=== PATIENT | male | born 1955 | race African-American/Black ===

== ENCOUNTER 2017-07-01 13:29 | Inpatient (IN) | payer MEDICARE, MEDICAID ==
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
[2017-07-01 14:07] LABS: % BASOPHILS 0.8 % (0.0-2.0); % EOSINOPHILS 1.1 % (0.0-5.0); % LYMPHOCYTES 36.8 % (20.0-50.0); % MONOCYTES 12.5 % (2.0-10.0); % NEUTROPHILS 48.8 % (40.0-80.0); BASOPHILE ABSOLUTE 0.1 Th/cumm (0-0.2); EOSINOPHILE ABSOLUTE 0.1 Th/cmm (0.1-0.4); HEMATOCRIT 35.3 % (41.0-60); HEMOGLOBIN 12.1 gm/dL (12-16); LYMPHOCYTE ABSOLUTE 2.4 Th/cmm (1.5-3.0); MEAN CELL VOLUME 91.8 fl (80-99); MEAN CORPUSCULAR HEMOGLOBIN 31.4 pg (26.0-30.0); MEAN CORPUSCULAR HGB CONC 34.2 pg (28.0-36.0); MEAN PLATELET VOLUME 7.2 fl; MONOCYTE ABSOLUTE 0.8 Th/cmm (0.3-1.0); PLATELET COUNT 173 Th/cmm (150-400); RED BLOOD COUNT 3.85 Mil/cmm (4.30-5.70); RED CELL DISTRIBUTION WIDTH 12.4 % (11.5-20.0); WHITE BLOOD COUNT 6.4 Th/cmm (4.8-10.8)
[2017-07-01 14:50] LABS: ACETAMINOPHEN < 10.0 ug/mL (10.0-30.0); ALB/GLOB RATIO 1.3 (1.0-1.8); ALBUMIN 3.9 gm/dL (4.2-5.5); ALKALINE PHOSPHATASE 53 U/L (34-104); ANION GAP 7.3 (7.0-16.0); BILIRUBIN,TOTAL 0.3 mg/dL (0.3-1.0); BUN - UREA NITROGEN 20 mg/dL (7-25); CALCIUM SERUM 9.3 mg/dL (8.6-10.3); CHLORIDE 103 mEq/L (98-107); CHOLESTEROL 181 mg/dL (<200); CREATININE - SERUM 0.9 mg/dL (0.7-1.3); GFR AFRICAN-AMERICAN > 60.0 ml/min (>90); GFR NON AFRICAN-AMERICAN > 60.0 ml/min; GLUCOSE 100 mg/dL (70-105); HDL -HIGH DENSITY LIPOPROTEIN 57 mg/dL (23-92); POTASSIUM SERUM 4.3 mEq/L (3.5-5.1); SGOT 19 U/L (13-39); SGPT/ALT 14 U/L (7-52); SODIUM SERUM 134 mEq/L (136-145); TOTAL PROTEIN,SERUM 6.9 gm/dL (6.0-8.3); TRIGLYCERIDES 224 mg/dL (<150)
[2017-07-01 15:17] LABS: SALICYLATES (ASPIRIN) < 25.0 mg/L (30.0-100.0)
[2017-07-01 16:11] VITALS: BP 99/62
[2017-07-01] MEDS ORDERED: Maalox 30 mL Cup PO PRN ×2 (16:11→18:42)
[2017-07-01] MEDS ORDERED: Magnesium Hydroxide (MOM) 30 mL UDC PO PRN ×2 (16:11→18:42)
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
--- NOTE | 2017-07-02 08:50 | General Progress Note ---
Subjective - Review of Systems Service Date: 07/02/17 Subjective: Awake, Alert, but confused Objective - Results Result Diagrams: 07/01/17 13:56 07/01/17 13:56 Recent Labs: Laboratory Last Values WBC 6.4 Th/cmm (4.8-10.8) 07/01/17 13:56 RBC 3.85 Mil/cmm (4.30-5.70) L 07/01/17 13:56 Hgb 12.1 gm/dL (12-16) 07/01/17 13:56 Hct 35.3 % (41.0-60) L 07/01/17 13:56 MCV 91.8 fl (80-99) 07/01/17 13:56 MCH 31.4 pg (26.0-30.0) H 07/01/17 13:56 MCHC Differential 34.2 pg (28.0-36.0) 07/01/17 13:56 RDW 12.4 % (11.5-20.0) 07/01/17 13:56 Plt Count 173 Th/cmm (150-400) 07/01/17 13:56 MPV 7.2 fl 07/01/17 13:56 Neutrophils % 48.8 % (40.0-80.0) 07/01/17 13:56 Lymphocytes % 36.8 % (20.0-50.0) 07/01/17 13:56 Monocytes % 12.5 % (2.0-10.0) H 07/01/17 13:56 Eosinophils % 1.1 % (0.0-5.0) 07/01/17 13:56 Basophils % 0.8 % (0.0-2.0) 07/01/17 13:56 Sodium 134 mEq/L (136-145) L 07/01/17 13:56 Potassium 4.3 mEq/L (3.5-5.1) 07/01/17 13:56 Chloride 103 mEq/L (98-107) 07/01/17 13:56 Carbon Dioxide 28.0 mEq/L (21.0-31.0) 07/01/17 13:56 Anion Gap 7.3 (7.0-16.0) 07/01/17 13:56 BUN 20 mg/dL (7-25) 07/01/17 13:56 Creatinine 0.9 mg/dL (0.7-1.3) 07/01/17 13:56 Est GFR ( Amer) > 60.0 ml/min (>90) 07/01/17 13:56 Est GFR (Non-Af Amer) > 60.0 ml/min 07/01/17 13:56 BUN/Creatinine Ratio 22.2 07/01/17 13:56 Glucose 100 mg/dL (70-105) 07/01/17 13:56 Calcium 9.3 mg/dL (8.6-10.3) 07/01/17 13:56 Total Bilirubin 0.3 mg/dL (0.3-1.0) 07/01/17 13:56 AST 19 U/L (13-39) 07/01/17 13:56 ALT 14 U/L (7-52) 07/01/17 13:56 Alkaline Phosphatase 53 U/L (34-104) 07/01/17 13:56 Total Protein 6.9 gm/dL (6.0-8.3) 07/01/17 13:56 Albumin 3.9 gm/dL (4.2-5.5) L 07/01/17 13:56 Globulin 3.0 gm/dL 07/01/17 13:56 Albumin/Globulin Ratio 1.3 (1.0-1.8) 07/01/17 13:56 Triglycerides 224 mg/dL (<150) H 07/01/17 13:56 Cholesterol 181 mg/dL (<200) 07/01/17 13:56 LDL Cholesterol Direct 97 mg/dL (75-193) 07/01/17 13:56 HDL Cholesterol 57 mg/dL (23-92) 07/01/17 13:56 TSH 1.89 uIU/ml (0.34-5.60) 07/01/17 13:56 Salicylates < 25.0 mg/L (30.0-100.0) L 07/01/17 13:56 Acetaminophen < 10.0 ug/mL (10.0-30.0) L 07/01/17 13:56 Ethyl Alcohol < 10 mg/dL (0-10) 07/01/17 13:56 - Physical Exam Vitals and I&O: Vital Signs Temp 97.7 F 07/02/17 07:01 Pulse 80 07/02/17 07:01 Resp 18 07/02/17 07:01 BP 124/84 07/02/17 07:01 Pulse Ox 99 07/02/17 07:01 Intake & Output 07/01/17 07/02/17 07/02/17 18:59 06:59 18:59 Intake Total 410 Balance 410 Weight (lbs) 90.718 kg Intake: Oral 410 Other: # Voids 2 # Bowel Movements 0 Active Medications: Current Medications Acetaminophen (Tylenol) 650 mg PO Q4H PRN PRN Reason: Pain (Mild) Stop: 08/30/17 18:41 Al Hydrox/Mg Hydrox/Simethicone (Maalox) 30 ml PO Q6HR PRN PRN Reason: GI DISTRESS Stop: 08/30/17 18:41 Aspirin (Ecotrin) 81 mg PO DAILY [facility] Stop: 08/31/17 08:59 Divalproex Sodium (Depakote Dr) 500 mg PO BID DIMITRIS PRN Reason: Protocol Stop: 08/30/17 16:59 Docusate Sodium (Colace) 250 mg PO DAILY [facility] Stop: 08/31/17 08:59 Ferrous Sulfate (Iron) 325 mg PO DAILY [facility] Stop: 08/31/17 08:59 Ibuprofen (Motrin) 400 mg PO BID [facility] Stop: 08/30/17 16:59 Last Admin: 07/01/17 17:50 Dose: Not Given Isosorbide Mononitrate (Imdur) 30 mg PO DAILY [facility] Stop: 08/31/17 08:59 Lorazepam (Ativan) 0.5 mg PO Q4HR PRN; Protocol PRN Reason: Anxiety Stop: 07/31/17 16:10 Last Admin: 07/01/17 20:39 Dose: 0.5 mg Magnesium Hydroxide (Milk Of Magnesia) 30 ml PO HS PRN PRN Reason: Constipation Magnesium Hydroxide (Milk Of Magnesia) 30 ml PO PRN PRN PRN Reason: Constipation Stop: 08/30/17 18:41 Metoprolol Succinate (Toprol Xl) 25 mg PO DAILY [facility] Stop: 08/31/17 08:59 Quetiapine Fumarate (Seroquel) 200 mg PO TID DIMITRIS PRN Reason: Protocol Stop: 08/30/17 20:59 Zolpidem Tartrate (Ambien) 5 mg PO HS PRN PRN Reason: Insomnia Stop: 08/30/17 16:10 General: Alert, Oriented x3, No acute distress HEENT: Atraumatic, PERRLA, EOMI Neck: Supple Cardiovascular: Regular rate, Normal S1, Normal S2 Lungs: Clear to auscultation Abdomen: Bowel sounds, Soft Extremities: no Clubbing, no Cyanosis, no Edema Neurological: Normal gait, Normal speech Skin: no Rash Assessment/Plan - Problem List Patient Problems: All Active Problems AGITATION WITH VERBAL AND PHYSICAL THREA (Acute) - Assessment Assessment: Current Active Problems Problem Status Onset AGITATION WITH VERBAL AND PHYSICAL THREA Acute psychosis hypertension bipolar disorder - Plan Plan: continue current orders.
[2017-07-02] MEDS ORDERED: Multivitamin Tab PO SCH (09:00)
[2017-07-02] MEDS: Multivitamin w/ Minerals Tab PO SCH (09:08)
[2017-07-02] MEDS: Ferrous Sulfate 325 MG TAB PO SCH (09:12)
[2017-07-02 13:19] LABS: A1C % 7.1 % (4.0-6.0)
--- NOTE | 2017-07-03 08:06 | General Progress Note ---
Subjective - Review of Systems Service Date: 07/03/17 Subjective: VS T 97.5 P84 R19 BP 122/80 Objective - Results Result Diagrams: 07/01/17 13:56 07/01/17 13:56 Recent Labs: Laboratory Last Values WBC 6.4 Th/cmm (4.8-10.8) 07/01/17 13:56 RBC 3.85 Mil/cmm (4.30-5.70) L 07/01/17 13:56 Hgb 12.1 gm/dL (12-16) 07/01/17 13:56 Hct 35.3 % (41.0-60) L 07/01/17 13:56 MCV 91.8 fl (80-99) 07/01/17 13:56 MCH 31.4 pg (26.0-30.0) H 07/01/17 13:56 MCHC Differential 34.2 pg (28.0-36.0) 07/01/17 13:56 RDW 12.4 % (11.5-20.0) 07/01/17 13:56 Plt Count 173 Th/cmm (150-400) 07/01/17 13:56 MPV 7.2 fl 07/01/17 13:56 Neutrophils % 48.8 % (40.0-80.0) 07/01/17 13:56 Lymphocytes % 36.8 % (20.0-50.0) 07/01/17 13:56 Monocytes % 12.5 % (2.0-10.0) H 07/01/17 13:56 Eosinophils % 1.1 % (0.0-5.0) 07/01/17 13:56 Basophils % 0.8 % (0.0-2.0) 07/01/17 13:56 Sodium 134 mEq/L (136-145) L 07/01/17 13:56 Potassium 4.3 mEq/L (3.5-5.1) 07/01/17 13:56 Chloride 103 mEq/L (98-107) 07/01/17 13:56 Carbon Dioxide 28.0 mEq/L (21.0-31.0) 07/01/17 13:56 Anion Gap 7.3 (7.0-16.0) 07/01/17 13:56 BUN 20 mg/dL (7-25) 07/01/17 13:56 Creatinine 0.9 mg/dL (0.7-1.3) 07/01/17 13:56 Est GFR ( Amer) > 60.0 ml/min (>90) 07/01/17 13:56 Est GFR (Non-Af Amer) > 60.0 ml/min 07/01/17 13:56 BUN/Creatinine Ratio 22.2 07/01/17 13:56 Glucose 100 mg/dL (70-105) 07/01/17 13:56 Hemoglobin A1c % 7.1 % (4.0-6.0) H 07/01/17 13:56 Calcium 9.3 mg/dL (8.6-10.3) 07/01/17 13:56 Total Bilirubin 0.3 mg/dL (0.3-1.0) 07/01/17 13:56 AST 19 U/L (13-39) 07/01/17 13:56 ALT 14 U/L (7-52) 07/01/17 13:56 Alkaline Phosphatase 53 U/L (34-104) 07/01/17 13:56 Total Protein 6.9 gm/dL (6.0-8.3) 07/01/17 13:56 Albumin 3.9 gm/dL (4.2-5.5) L 07/01/17 13:56 Globulin 3.0 gm/dL 07/01/17 13:56 Albumin/Globulin Ratio 1.3 (1.0-1.8) 07/01/17 13:56 Triglycerides 224 mg/dL (<150) H 07/01/17 13:56 Cholesterol 181 mg/dL (<200) 07/01/17 13:56 LDL Cholesterol Direct 97 mg/dL (75-193) 07/01/17 13:56 HDL Cholesterol 57 mg/dL (23-92) 07/01/17 13:56 TSH 1.89 uIU/ml (0.34-5.60) 07/01/17 13:56 Salicylates < 25.0 mg/L (30.0-100.0) L 07/01/17 13:56 Acetaminophen < 10.0 ug/mL (10.0-30.0) L 07/01/17 13:56 Ethyl Alcohol < 10 mg/dL (0-10) 07/01/17 13:56 - Physical Exam Vitals and I&O: Vital Signs Temp 97.5 F 07/02/17 20:00 Pulse 84 07/02/17 20:00 Resp 19 07/02/17 20:00 BP 122/80 07/02/17 20:00 Pulse Ox 100 07/02/17 20:00 Intake & Output 07/02/17 07/03/17 07/03/17 18:59 06:59 18:59 Intake Total 250 Balance 250 Intake: Oral 250 Other: # Voids 4 # Bowel Movements 1 Active Medications: Current Medications Acetaminophen (Tylenol) 650 mg PO Q4H PRN PRN Reason: Pain (Mild) Stop: 08/30/17 18:41 Al Hydrox/Mg Hydrox/Simethicone (Maalox) 30 ml PO Q6HR PRN PRN Reason: GI DISTRESS Stop: 08/30/17 18:41 Aspirin (Ecotrin) 81 mg PO DAILY [facility] Stop: 08/31/17 08:59 Last Admin: 07/02/17 09:12 Dose: 81 mg Clonazepam (Klonopin) 0.5 mg PO BID DIMITRIS PRN Reason: Protocol Stop: 09/01/17 08:59 Divalproex Sodium (Depakote Dr) 500 mg PO BID DIMITRIS PRN Reason: Protocol Stop: 08/30/17 16:59 Docusate Sodium (Colace) 250 mg PO DAILY [facility] Stop: 08/31/17 08:59 Last Admin: 07/02/17 09:12 Dose: 250 mg Ferrous Sulfate (Iron) 325 mg PO DAILY [facility] Stop: 08/31/17 08:59 Last Admin: 07/02/17 09:12 Dose: 325 mg Ibuprofen (Motrin) 400 mg PO BID [facility] Stop: 08/30/17 16:59 Last Admin: 07/02/17 16:21 Dose: Not Given Isosorbide Mononitrate (Imdur) 30 mg PO DAILY [facility] Stop: 08/31/17 08:59 Last Admin: 07/02/17 09:59 Dose: 30 mg Lorazepam (Ativan) 0.5 mg PO Q4HR PRN; Protocol PRN Reason: Anxiety Stop: 07/31/17 16:10 Last Admin: 07/02/17 09:08 Dose: 0.5 mg Magnesium Hydroxide (Milk Of Magnesia) 30 ml PO HS PRN PRN Reason: Constipation Magnesium Hydroxide (Milk Of Magnesia) 30 ml PO PRN PRN PRN Reason: Constipation Stop: 08/30/17 18:41 Metoprolol Succinate (Toprol Xl) 25 mg PO DAILY [facility] Stop: 08/31/17 08:59 Last Admin: 07/02/17 09:59 Dose: 25 mg Quetiapine Fumarate (Seroquel) 200 mg PO TID DIMITRIS PRN Reason: Protocol Stop: 08/30/17 20:59 Zolpidem Tartrate (Ambien) 5 mg PO HS PRN PRN Reason: Insomnia Stop: 08/30/17 16:10 Last Admin: 07/02/17 20:37 Dose: 5 mg General: Alert, Oriented x3, No acute distress HEENT: Atraumatic, PERRLA, EOMI Neck: Supple Cardiovascular: Regular rate, Normal S1, Normal S2 Lungs: Clear to auscultation Abdomen: Bowel sounds, Soft Extremities: no Clubbing, no Cyanosis, no Edema Neurological: Normal gait, Normal speech Skin: no Rash Assessment/Plan - Problem List Patient Problems: All Active Problems AGITATION WITH VERBAL AND PHYSICAL THREA (Acute) - Assessment Assessment: Current Active Problems Problem Status Onset AGITATION WITH VERBAL AND PHYSICAL THREA Acute psychosis hypertension bipolar disorder borderline diabetes mellitus ... will add Januvia 25mg PO daily. dietary changes.
[2017-07-03] MEDS: Ferrous Sulfate 325 MG TAB PO SCH (08:57)
[2017-07-03] MEDS: Multivitamin w/ Minerals Tab PO SCH (16:37)
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
[2017-07-04] MEDS: Multivitamin w/ Minerals Tab PO SCH (09:09)
[2017-07-04] MEDS: Ferrous Sulfate 325 MG TAB PO SCH (09:12)
--- NOTE | 2017-07-04 12:39 | General Progress Note ---
Subjective - Review of Systems Service Date: 07/04/17 Subjective: VS T 97.5 P73 R19 BP 123/73 Objective - Results Result Diagrams: 07/01/17 13:56 07/01/17 13:56 Recent Labs: Laboratory Last Values WBC 6.4 Th/cmm (4.8-10.8) 07/01/17 13:56 RBC 3.85 Mil/cmm (4.30-5.70) L 07/01/17 13:56 Hgb 12.1 gm/dL (12-16) 07/01/17 13:56 Hct 35.3 % (41.0-60) L 07/01/17 13:56 MCV 91.8 fl (80-99) 07/01/17 13:56 MCH 31.4 pg (26.0-30.0) H 07/01/17 13:56 MCHC Differential 34.2 pg (28.0-36.0) 07/01/17 13:56 RDW 12.4 % (11.5-20.0) 07/01/17 13:56 Plt Count 173 Th/cmm (150-400) 07/01/17 13:56 MPV 7.2 fl 07/01/17 13:56 Neutrophils % 48.8 % (40.0-80.0) 07/01/17 13:56 Lymphocytes % 36.8 % (20.0-50.0) 07/01/17 13:56 Monocytes % 12.5 % (2.0-10.0) H 07/01/17 13:56 Eosinophils % 1.1 % (0.0-5.0) 07/01/17 13:56 Basophils % 0.8 % (0.0-2.0) 07/01/17 13:56 Sodium 134 mEq/L (136-145) L 07/01/17 13:56 Potassium 4.3 mEq/L (3.5-5.1) 07/01/17 13:56 Chloride 103 mEq/L (98-107) 07/01/17 13:56 Carbon Dioxide 28.0 mEq/L (21.0-31.0) 07/01/17 13:56 Anion Gap 7.3 (7.0-16.0) 07/01/17 13:56 BUN 20 mg/dL (7-25) 07/01/17 13:56 Creatinine 0.9 mg/dL (0.7-1.3) 07/01/17 13:56 Est GFR ( Amer) > 60.0 ml/min (>90) 07/01/17 13:56 Est GFR (Non-Af Amer) > 60.0 ml/min 07/01/17 13:56 BUN/Creatinine Ratio 22.2 07/01/17 13:56 Glucose 100 mg/dL (70-105) 07/01/17 13:56 Hemoglobin A1c % 7.1 % (4.0-6.0) H 07/01/17 13:56 Calcium 9.3 mg/dL (8.6-10.3) 07/01/17 13:56 Total Bilirubin 0.3 mg/dL (0.3-1.0) 07/01/17 13:56 AST 19 U/L (13-39) 07/01/17 13:56 ALT 14 U/L (7-52) 07/01/17 13:56 Alkaline Phosphatase 53 U/L (34-104) 07/01/17 13:56 Total Protein 6.9 gm/dL (6.0-8.3) 07/01/17 13:56 Albumin 3.9 gm/dL (4.2-5.5) L 07/01/17 13:56 Globulin 3.0 gm/dL 07/01/17 13:56 Albumin/Globulin Ratio 1.3 (1.0-1.8) 07/01/17 13:56 Triglycerides 224 mg/dL (<150) H 07/01/17 13:56 Cholesterol 181 mg/dL (<200) 07/01/17 13:56 LDL Cholesterol Direct 97 mg/dL (75-193) 07/01/17 13:56 HDL Cholesterol 57 mg/dL (23-92) 07/01/17 13:56 TSH 1.89 uIU/ml (0.34-5.60) 07/01/17 13:56 Salicylates < 25.0 mg/L (30.0-100.0) L 07/01/17 13:56 Acetaminophen < 10.0 ug/mL (10.0-30.0) L 07/01/17 13:56 Valproic Acid 12.8 ug/mL (50.0-100.0) L 07/03/17 08:35 Ethyl Alcohol < 10 mg/dL (0-10) 07/01/17 13:56 RPR NONREACTIVE (NONREACTIVE) 07/01/17 13:56 - Physical Exam Vitals and I&O: Vital Signs Temp 97.2 F 07/03/17 20:00 Pulse 72 07/04/17 08:00 Resp 18 07/04/17 08:00 BP 123/73 07/03/17 20:00 Pulse Ox 98 07/03/17 20:00 Intake & Output 07/03/17 07/04/17 07/04/17 18:59 06:59 18:59 Intake Total 360 Balance 360 Intake: Oral 360 Other: # Voids 3 Active Medications: Current Medications Acetaminophen (Tylenol) 650 mg PO Q4H PRN PRN Reason: Pain (Mild) Stop: 08/30/17 18:41 Al Hydrox/Mg Hydrox/Simethicone (Maalox) 30 ml PO Q6HR PRN PRN Reason: GI DISTRESS Stop: 08/30/17 18:41 Aspirin (Ecotrin) 81 mg PO DAILY [facility] Stop: 08/31/17 08:59 Last Admin: 07/04/17 09:09 Dose: 81 mg Clonazepam (Klonopin) 0.5 mg PO BID [facility] PRN Reason: Protocol Stop: 09/01/17 08:59 Last Admin: 07/04/17 09:11 Dose: 0.5 mg Divalproex Sodium (Depakote Dr) 500 mg PO TID [facility] PRN Reason: Protocol Stop: 09/02/17 08:59 Last Admin: 07/04/17 09:11 Dose: 500 mg Docusate Sodium (Colace) 250 mg PO DAILY [facility] Stop: 08/31/17 08:59 Last Admin: 07/04/17 09:12 Dose: 250 mg Ferrous Sulfate (Iron) 325 mg PO DAILY [facility] Stop: 08/31/17 08:59 Last Admin: 07/04/17 09:12 Dose: 325 mg Ibuprofen (Motrin) 400 mg PO BID [facility] Stop: 08/30/17 16:59 Last Admin: 07/04/17 09:09 Dose: 400 mg Isosorbide Mononitrate (Imdur) 30 mg PO DAILY [facility] Stop: 08/31/17 08:59 Last Admin: 07/03/17 08:56 Dose: 30 mg Lorazepam (Ativan) 0.5 mg PO Q4HR PRN; Protocol PRN Reason: Anxiety Stop: 07/31/17 16:10 Last Admin: 07/02/17 09:08 Dose: 0.5 mg Magnesium Hydroxide (Milk Of Magnesia) 30 ml PO HS PRN PRN Reason: Constipation Magnesium Hydroxide (Milk Of Magnesia) 30 ml PO PRN PRN PRN Reason: Constipation Stop: 08/30/17 18:41 Metoprolol Succinate (Toprol Xl) 25 mg PO DAILY [facility] Stop: 08/31/17 08:59 Last Admin: 07/03/17 16:38 Dose: Not Given Quetiapine Fumarate (Seroquel) 250 mg PO TID [facility] PRN Reason: Protocol Stop: 09/02/17 06:23 Last Admin: 07/04/17 09:10 Dose: 250 mg Sitagliptin Phosphate (Januvia) 25 mg PO DAILY [facility] Stop: 09/01/17 08:59 Last Admin: 07/04/17 09:10 Dose: 25 mg Zolpidem Tartrate (Ambien) 5 mg PO HS PRN PRN Reason: Insomnia Stop: 08/30/17 16:10 Last Admin: 07/03/17 20:13 Dose: 5 mg General: Alert, Oriented x3, No acute distress HEENT: Atraumatic, PERRLA, EOMI Neck: Supple Cardiovascular: Regular rate, Normal S1, Normal S2 Lungs: Clear to auscultation Abdomen: Bowel sounds, Soft Extremities: no Clubbing, no Cyanosis, no Edema Neurological: Normal gait, Normal speech Skin: no Rash Assessment/Plan - Problem List Patient Problems: All Active Problems AGITATION WITH VERBAL AND PHYSICAL THREA (Acute) - Assessment Assessment: Current Active Problems Problem Status Onset AGITATION WITH VERBAL AND PHYSICAL THREA Acute psychosis hypertension bipolar disorder borderline diabetes mellitus ... will add Januvia 25mg PO daily. dietary changes. - Plan Plan: continue current orders.
--- NOTE | 2017-07-05 01:49 | Progress Notes ---
DATE: 07/04/2017 Chart reviewed and the patient interviewed. Also discussed the patient's condition with the staff and reviewed records and labs. The patient is still pacing up and down and is still in angry and in irritable mood. The patient also is still suspicious and paranoid. He also still needs to be monitored closely because of his sexual inappropriate behavior and he still has difficulty following staff directions. Otherwise, the patient is compliant with taking his medications. During interview, the patient is hyperverbal and he still has pressured speech. He also is still easily agitated and restless and have difficulty sitting still during the conversation. Also, disorganized thoughts. ASSESSMENT: The patient is still having poor impulse control and still showing some manic behavior. TREATMENT PLAN: We will continue monitoring his behavior and his condition closely. Also, Depakote blood level that was done yesterday, came back to be 12.8, which is below therapeutic level and we will increase Depakote to 500 mg 3 times a day. Also, we will increase Seroquel to 250 mg 3 times a day and will continue to follow up. JOB# [id number]
--- NOTE | 2017-07-05 05:59 | General Progress Note ---
Subjective - Review of Systems Service Date: 07/05/17 Subjective: VS T 97.2 P68 R18 BP 100/60 Objective - Results Result Diagrams: 07/01/17 13:56 07/01/17 13:56 Recent Labs: Laboratory Last Values WBC 6.4 Th/cmm (4.8-10.8) 07/01/17 13:56 RBC 3.85 Mil/cmm (4.30-5.70) L 07/01/17 13:56 Hgb 12.1 gm/dL (12-16) 07/01/17 13:56 Hct 35.3 % (41.0-60) L 07/01/17 13:56 MCV 91.8 fl (80-99) 07/01/17 13:56 MCH 31.4 pg (26.0-30.0) H 07/01/17 13:56 MCHC Differential 34.2 pg (28.0-36.0) 07/01/17 13:56 RDW 12.4 % (11.5-20.0) 07/01/17 13:56 Plt Count 173 Th/cmm (150-400) 07/01/17 13:56 MPV 7.2 fl 07/01/17 13:56 Neutrophils % 48.8 % (40.0-80.0) 07/01/17 13:56 Lymphocytes % 36.8 % (20.0-50.0) 07/01/17 13:56 Monocytes % 12.5 % (2.0-10.0) H 07/01/17 13:56 Eosinophils % 1.1 % (0.0-5.0) 07/01/17 13:56 Basophils % 0.8 % (0.0-2.0) 07/01/17 13:56 Sodium 134 mEq/L (136-145) L 07/01/17 13:56 Potassium 4.3 mEq/L (3.5-5.1) 07/01/17 13:56 Chloride 103 mEq/L (98-107) 07/01/17 13:56 Carbon Dioxide 28.0 mEq/L (21.0-31.0) 07/01/17 13:56 Anion Gap 7.3 (7.0-16.0) 07/01/17 13:56 BUN 20 mg/dL (7-25) 07/01/17 13:56 Creatinine 0.9 mg/dL (0.7-1.3) 07/01/17 13:56 Est GFR ( Amer) > 60.0 ml/min (>90) 07/01/17 13:56 Est GFR (Non-Af Amer) > 60.0 ml/min 07/01/17 13:56 BUN/Creatinine Ratio 22.2 07/01/17 13:56 Glucose 100 mg/dL (70-105) 07/01/17 13:56 Hemoglobin A1c % 7.1 % (4.0-6.0) H 07/01/17 13:56 Calcium 9.3 mg/dL (8.6-10.3) 07/01/17 13:56 Total Bilirubin 0.3 mg/dL (0.3-1.0) 07/01/17 13:56 AST 19 U/L (13-39) 07/01/17 13:56 ALT 14 U/L (7-52) 07/01/17 13:56 Alkaline Phosphatase 53 U/L (34-104) 07/01/17 13:56 Total Protein 6.9 gm/dL (6.0-8.3) 07/01/17 13:56 Albumin 3.9 gm/dL (4.2-5.5) L 07/01/17 13:56 Globulin 3.0 gm/dL 07/01/17 13:56 Albumin/Globulin Ratio 1.3 (1.0-1.8) 07/01/17 13:56 Triglycerides 224 mg/dL (<150) H 07/01/17 13:56 Cholesterol 181 mg/dL (<200) 07/01/17 13:56 LDL Cholesterol Direct 97 mg/dL (75-193) 07/01/17 13:56 HDL Cholesterol 57 mg/dL (23-92) 07/01/17 13:56 TSH 1.89 uIU/ml (0.34-5.60) 07/01/17 13:56 Salicylates < 25.0 mg/L (30.0-100.0) L 07/01/17 13:56 Acetaminophen < 10.0 ug/mL (10.0-30.0) L 07/01/17 13:56 Valproic Acid 12.8 ug/mL (50.0-100.0) L 07/03/17 08:35 Ethyl Alcohol < 10 mg/dL (0-10) 07/01/17 13:56 RPR NONREACTIVE (NONREACTIVE) 07/01/17 13:56 - Physical Exam Vitals and I&O: Vital Signs Temp 97.2 F 07/03/17 20:00 Pulse 68 07/04/17 13:34 Resp 18 07/04/17 08:00 BP 100/60 07/04/17 13:34 Pulse Ox 98 07/03/17 20:00 Intake & Output 07/04/17 07/04/17 07/05/17 06:59 18:59 06:59 Intake Total 360 Balance 360 Intake: Oral 360 Other: # Voids 3 Active Medications: Current Medications Acetaminophen (Tylenol) 650 mg PO Q4H PRN PRN Reason: Pain (Mild) Stop: 08/30/17 18:41 Al Hydrox/Mg Hydrox/Simethicone (Maalox) 30 ml PO Q6HR PRN PRN Reason: GI DISTRESS Stop: 08/30/17 18:41 Aspirin (Ecotrin) 81 mg PO DAILY [facility] Stop: 08/31/17 08:59 Last Admin: 07/04/17 09:09 Dose: 81 mg Clonazepam (Klonopin) 0.5 mg PO BID [facility] PRN Reason: Protocol Stop: 09/01/17 08:59 Last Admin: 07/04/17 16:36 Dose: 0.5 mg Divalproex Sodium (Depakote Dr) 500 mg PO TID [facility] PRN Reason: Protocol Stop: 09/02/17 08:59 Last Admin: 07/04/17 20:21 Dose: 500 mg Docusate Sodium (Colace) 250 mg PO DAILY [facility] Stop: 08/31/17 08:59 Last Admin: 07/04/17 09:12 Dose: 250 mg Ferrous Sulfate (Iron) 325 mg PO DAILY [facility] Stop: 08/31/17 08:59 Last Admin: 07/04/17 09:12 Dose: 325 mg Ibuprofen (Motrin) 400 mg PO BID [facility] Stop: 08/30/17 16:59 Last Admin: 07/04/17 16:35 Dose: 400 mg Isosorbide Mononitrate (Imdur) 30 mg PO DAILY [facility] Stop: 08/31/17 08:59 Last Admin: 07/04/17 13:33 Dose: Not Given Lorazepam (Ativan) 0.5 mg PO Q4HR PRN; Protocol PRN Reason: Anxiety Stop: 07/31/17 16:10 Last Admin: 07/02/17 09:08 Dose: 0.5 mg Magnesium Hydroxide (Milk Of Magnesia) 30 ml PO HS PRN PRN Reason: Constipation Magnesium Hydroxide (Milk Of Magnesia) 30 ml PO PRN PRN PRN Reason: Constipation Stop: 08/30/17 18:41 Metoprolol Succinate (Toprol Xl) 25 mg PO DAILY [facility] Stop: 08/31/17 08:59 Last Admin: 07/04/17 13:34 Dose: Not Given Quetiapine Fumarate (Seroquel) 250 mg PO TID [facility] PRN Reason: Protocol Stop: 09/02/17 06:23 Last Admin: 07/04/17 20:20 Dose: 250 mg Sitagliptin Phosphate (Januvia) 25 mg PO DAILY [facility] Stop: 09/01/17 08:59 Last Admin: 07/04/17 09:10 Dose: 25 mg Zolpidem Tartrate (Ambien) 5 mg PO HS PRN PRN Reason: Insomnia Stop: 08/30/17 16:10 Last Admin: 07/03/17 20:13 Dose: 5 mg General: Alert, Oriented x3, No acute distress HEENT: Atraumatic, PERRLA, EOMI Neck: Supple Cardiovascular: Regular rate, Normal S1, Normal S2 Lungs: Clear to auscultation Abdomen: Bowel sounds, Soft Extremities: no Clubbing, no Cyanosis, no Edema Neurological: Normal gait, Normal speech Skin: no Rash Assessment/Plan - Problem List Patient Problems: All Active Problems AGITATION WITH VERBAL AND PHYSICAL THREA (Acute) - Assessment Assessment: Current Active Problems Problem Status Onset AGITATION WITH VERBAL AND PHYSICAL THREA Acute psychosis hypertension bipolar disorder borderline diabetes mellitus ... will add Januvia 25mg PO daily. dietary changes. - Plan Plan: continue current orders.
[2017-07-05] MEDS ORDERED: Haloperidol Lactate 5 mg/mL 1mL Vial ONE (08:46)
[2017-07-05] MEDS ORDERED: Haloperidol Lactate 5 mg/mL 1mL Vial IM ONE (08:47)
[2017-07-05] MEDS: Ferrous Sulfate 325 MG TAB PO SCH (09:49)
[2017-07-05] MEDS: Multivitamin w/ Minerals Tab PO SCH (09:49)
--- NOTE | 2017-07-06 | Progress Notes ---
DATE: SUBJECTIVE: Chart reviewed and the patient interviewed. Also discussed the patient's condition with the staff and reviewed records and labs. The patient seems to be slightly calmer and less agitated. Also easier to redirect him. The patient also took his medications with no major issues or problems. The patient also is more cooperative with the staff today and less intrusive to others. The patient denies any side effects of medications. ASSESSMENT: The patient is less agitated and less irritable. TREATMENT PLAN: Continue to monitor his behavior and his condition closely. Also, continue to work on his psychosis and irritability and continue to follow up. JOB# [id number]
--- NOTE | 2017-07-06 06:06 | General Progress Note ---
Subjective - Review of Systems Service Date: 07/06/17 Subjective: VS T 97.6 P91 R20 BP 103/63 Objective - Results Result Diagrams: 07/01/17 13:56 07/01/17 13:56 Recent Labs: Laboratory Last Values WBC 6.4 Th/cmm (4.8-10.8) 07/01/17 13:56 RBC 3.85 Mil/cmm (4.30-5.70) L 07/01/17 13:56 Hgb 12.1 gm/dL (12-16) 07/01/17 13:56 Hct 35.3 % (41.0-60) L 07/01/17 13:56 MCV 91.8 fl (80-99) 07/01/17 13:56 MCH 31.4 pg (26.0-30.0) H 07/01/17 13:56 MCHC Differential 34.2 pg (28.0-36.0) 07/01/17 13:56 RDW 12.4 % (11.5-20.0) 07/01/17 13:56 Plt Count 173 Th/cmm (150-400) 07/01/17 13:56 MPV 7.2 fl 07/01/17 13:56 Neutrophils % 48.8 % (40.0-80.0) 07/01/17 13:56 Lymphocytes % 36.8 % (20.0-50.0) 07/01/17 13:56 Monocytes % 12.5 % (2.0-10.0) H 07/01/17 13:56 Eosinophils % 1.1 % (0.0-5.0) 07/01/17 13:56 Basophils % 0.8 % (0.0-2.0) 07/01/17 13:56 Sodium 134 mEq/L (136-145) L 07/01/17 13:56 Potassium 4.3 mEq/L (3.5-5.1) 07/01/17 13:56 Chloride 103 mEq/L (98-107) 07/01/17 13:56 Carbon Dioxide 28.0 mEq/L (21.0-31.0) 07/01/17 13:56 Anion Gap 7.3 (7.0-16.0) 07/01/17 13:56 BUN 20 mg/dL (7-25) 07/01/17 13:56 Creatinine 0.9 mg/dL (0.7-1.3) 07/01/17 13:56 Est GFR ( Amer) > 60.0 ml/min (>90) 07/01/17 13:56 Est GFR (Non-Af Amer) > 60.0 ml/min 07/01/17 13:56 BUN/Creatinine Ratio 22.2 07/01/17 13:56 Glucose 100 mg/dL (70-105) 07/01/17 13:56 Hemoglobin A1c % 7.1 % (4.0-6.0) H 07/01/17 13:56 Calcium 9.3 mg/dL (8.6-10.3) 07/01/17 13:56 Total Bilirubin 0.3 mg/dL (0.3-1.0) 07/01/17 13:56 AST 19 U/L (13-39) 07/01/17 13:56 ALT 14 U/L (7-52) 07/01/17 13:56 Alkaline Phosphatase 53 U/L (34-104) 07/01/17 13:56 Total Protein 6.9 gm/dL (6.0-8.3) 07/01/17 13:56 Albumin 3.9 gm/dL (4.2-5.5) L 07/01/17 13:56 Globulin 3.0 gm/dL 07/01/17 13:56 Albumin/Globulin Ratio 1.3 (1.0-1.8) 07/01/17 13:56 Triglycerides 224 mg/dL (<150) H 07/01/17 13:56 Cholesterol 181 mg/dL (<200) 07/01/17 13:56 LDL Cholesterol Direct 97 mg/dL (75-193) 07/01/17 13:56 HDL Cholesterol 57 mg/dL (23-92) 07/01/17 13:56 TSH 1.89 uIU/ml (0.34-5.60) 07/01/17 13:56 Salicylates < 25.0 mg/L (30.0-100.0) L 07/01/17 13:56 Acetaminophen < 10.0 ug/mL (10.0-30.0) L 07/01/17 13:56 Valproic Acid 12.8 ug/mL (50.0-100.0) L 07/03/17 08:35 Ethyl Alcohol < 10 mg/dL (0-10) 07/01/17 13:56 RPR NONREACTIVE (NONREACTIVE) 07/01/17 13:56 - Physical Exam Vitals and I&O: Vital Signs Temp 97.6 F 07/05/17 15:45 Pulse 91 07/05/17 15:45 Resp 20 07/05/17 15:45 BP 103/63 07/05/17 15:45 Pulse Ox 98 07/05/17 15:45 Intake & Output 07/05/17 07/05/17 07/06/17 06:59 18:59 06:59 Intake Total 1200 Balance 1200 Intake: Oral 1200 Other: # Voids 4 Active Medications: Current Medications Acetaminophen (Tylenol) 650 mg PO Q4H PRN PRN Reason: Pain (Mild) Stop: 08/30/17 18:41 Last Admin: 07/05/17 16:00 Dose: 650 mg Al Hydrox/Mg Hydrox/Simethicone (Maalox) 30 ml PO Q6HR PRN PRN Reason: GI DISTRESS Stop: 08/30/17 18:41 Aspirin (Ecotrin) 81 mg PO DAILY [facility] Stop: 08/31/17 08:59 Last Admin: 07/05/17 09:50 Dose: 81 mg Clonazepam (Klonopin) 0.5 mg PO BID [facility] PRN Reason: Protocol Stop: 09/01/17 08:59 Last Admin: 07/05/17 16:14 Dose: 0.5 mg Divalproex Sodium (Depakote Dr) 500 mg PO TID [facility] PRN Reason: Protocol Stop: 09/02/17 08:59 Last Admin: 07/05/17 20:52 Dose: 500 mg Docusate Sodium (Colace) 250 mg PO DAILY [facility] Stop: 08/31/17 08:59 Last Admin: 07/05/17 09:51 Dose: 250 mg Ferrous Sulfate (Iron) 325 mg PO DAILY [facility] Stop: 08/31/17 08:59 Last Admin: 07/05/17 09:49 Dose: 325 mg Ibuprofen (Motrin) 400 mg PO BID [facility] Stop: 08/30/17 16:59 Last Admin: 07/05/17 16:44 Dose: Not Given Isosorbide Mononitrate (Imdur) 30 mg PO DAILY [facility] Stop: 08/31/17 08:59 Last Admin: 07/05/17 09:50 Dose: 30 mg Lorazepam (Ativan) 0.5 mg PO Q4HR PRN; Protocol PRN Reason: Anxiety Stop: 07/31/17 16:10 Last Admin: 07/02/17 09:08 Dose: 0.5 mg Magnesium Hydroxide (Milk Of Magnesia) 30 ml PO HS PRN PRN Reason: Constipation Magnesium Hydroxide (Milk Of Magnesia) 30 ml PO PRN PRN PRN Reason: Constipation Stop: 08/30/17 18:41 Metoprolol Succinate (Toprol Xl) 25 mg PO DAILY [facility] Stop: 08/31/17 08:59 Last Admin: 07/05/17 09:50 Dose: 25 mg Quetiapine Fumarate (Seroquel) 250 mg PO TID [facility] PRN Reason: Protocol Stop: 09/02/17 06:23 Last Admin: 07/05/17 20:52 Dose: 250 mg Sitagliptin Phosphate (Januvia) 25 mg PO DAILY [facility] Stop: 09/01/17 08:59 Last Admin: 07/05/17 09:51 Dose: 25 mg Zolpidem Tartrate (Ambien) 5 mg PO HS PRN PRN Reason: Insomnia Stop: 08/30/17 16:10 Last Admin: 07/05/17 20:51 Dose: 5 mg General: Alert, Oriented x3, No acute distress HEENT: Atraumatic, PERRLA, EOMI Neck: Supple Cardiovascular: Regular rate, Normal S1, Normal S2 Lungs: Clear to auscultation Abdomen: Bowel sounds, Soft Extremities: no Clubbing, no Cyanosis, no Edema Neurological: Normal gait, Normal speech Skin: no Rash Assessment/Plan - Problem List Patient Problems: All Active Problems AGITATION WITH VERBAL AND PHYSICAL THREA (Acute) - Assessment Assessment: Current Active Problems Problem Status Onset AGITATION WITH VERBAL AND PHYSICAL THREA Acute psychosis hypertension bipolar disorder borderline diabetes mellitus ... will add Januvia 25mg PO daily. dietary changes. - Plan Plan: continue current orders.
[2017-07-06] MEDS: Multivitamin w/ Minerals Tab PO SCH (08:15)
[2017-07-06] MEDS: Ferrous Sulfate 325 MG TAB PO SCH (08:15)
[2017-07-06] MEDS: INSULIN ASPART SLIDING SCALE 100 UNITS/ML UNIT SUBQ SCH ×3 (11:56→21:24)
--- NOTE | 2017-07-06 22:27 | Progress Notes ---
DATE: SUBJECTIVE: Chart reviewed and patient interviewed. Also discussed the patient's condition with the staff and reviewed records and labs. The patient continue to be anxious and is still suspicious and paranoid. The patient also is guarded. The patient's behavioral problems seems to be decreased and she is doing slightly better in regard to behavioral issues. She also slept better last night. Otherwise, the patient is in need of placement. ASSESSMENT: The patient showed some improvement and seems to be less psychotic and less agitated. TREATMENT PLAN: Continue current medications and continue to monitor medicine and working on behavioral modification. Also, continue to work with case investigator in regard to placement issue and discharge plans. JOB# [id number]
[2017-07-07] MEDS: INSULIN ASPART SLIDING SCALE 100 UNITS/ML UNIT SUBQ SCH ×4 (06:56→21:21)
--- NOTE | 2017-07-07 08:17 | General Progress Note ---
Subjective - Review of Systems Service Date: 07/07/17 Subjective: VS T 97.0 P101 R20 BP 133/83 BS 140 this AM Objective - Results Result Diagrams: 07/01/17 13:56 07/01/17 13:56 Recent Labs: Laboratory Last Values WBC 6.4 Th/cmm (4.8-10.8) 07/01/17 13:56 RBC 3.85 Mil/cmm (4.30-5.70) L 07/01/17 13:56 Hgb 12.1 gm/dL (12-16) 07/01/17 13:56 Hct 35.3 % (41.0-60) L 07/01/17 13:56 MCV 91.8 fl (80-99) 07/01/17 13:56 MCH 31.4 pg (26.0-30.0) H 07/01/17 13:56 MCHC Differential 34.2 pg (28.0-36.0) 07/01/17 13:56 RDW 12.4 % (11.5-20.0) 07/01/17 13:56 Plt Count 173 Th/cmm (150-400) 07/01/17 13:56 MPV 7.2 fl 07/01/17 13:56 Neutrophils % 48.8 % (40.0-80.0) 07/01/17 13:56 Lymphocytes % 36.8 % (20.0-50.0) 07/01/17 13:56 Monocytes % 12.5 % (2.0-10.0) H 07/01/17 13:56 Eosinophils % 1.1 % (0.0-5.0) 07/01/17 13:56 Basophils % 0.8 % (0.0-2.0) 07/01/17 13:56 Sodium 134 mEq/L (136-145) L 07/01/17 13:56 Potassium 4.3 mEq/L (3.5-5.1) 07/01/17 13:56 Chloride 103 mEq/L (98-107) 07/01/17 13:56 Carbon Dioxide 28.0 mEq/L (21.0-31.0) 07/01/17 13:56 Anion Gap 7.3 (7.0-16.0) 07/01/17 13:56 BUN 20 mg/dL (7-25) 07/01/17 13:56 Creatinine 0.9 mg/dL (0.7-1.3) 07/01/17 13:56 Est GFR ( Amer) > 60.0 ml/min (>90) 07/01/17 13:56 Est GFR (Non-Af Amer) > 60.0 ml/min 07/01/17 13:56 BUN/Creatinine Ratio 22.2 07/01/17 13:56 Glucose 100 mg/dL (70-105) 07/01/17 13:56 POC Glucose 140 MG/DL (70 - 105) H 07/07/17 06:36 Hemoglobin A1c % 7.1 % (4.0-6.0) H 07/01/17 13:56 Calcium 9.3 mg/dL (8.6-10.3) 07/01/17 13:56 Total Bilirubin 0.3 mg/dL (0.3-1.0) 07/01/17 13:56 AST 19 U/L (13-39) 07/01/17 13:56 ALT 14 U/L (7-52) 07/01/17 13:56 Alkaline Phosphatase 53 U/L (34-104) 07/01/17 13:56 Total Protein 6.9 gm/dL (6.0-8.3) 07/01/17 13:56 Albumin 3.9 gm/dL (4.2-5.5) L 07/01/17 13:56 Globulin 3.0 gm/dL 07/01/17 13:56 Albumin/Globulin Ratio 1.3 (1.0-1.8) 07/01/17 13:56 Triglycerides 224 mg/dL (<150) H 07/01/17 13:56 Cholesterol 181 mg/dL (<200) 07/01/17 13:56 LDL Cholesterol Direct 97 mg/dL (75-193) 07/01/17 13:56 HDL Cholesterol 57 mg/dL (23-92) 07/01/17 13:56 TSH 1.89 uIU/ml (0.34-5.60) 07/01/17 13:56 Salicylates < 25.0 mg/L (30.0-100.0) L 07/01/17 13:56 Acetaminophen < 10.0 ug/mL (10.0-30.0) L 07/01/17 13:56 Valproic Acid 12.8 ug/mL (50.0-100.0) L 07/03/17 08:35 Ethyl Alcohol < 10 mg/dL (0-10) 07/01/17 13:56 RPR NONREACTIVE (NONREACTIVE) 07/01/17 13:56 - Physical Exam Vitals and I&O: Vital Signs Temp 97.0 F 07/06/17 13:37 Pulse 101 07/06/17 13:37 Resp 20 07/06/17 13:37 BP 133/83 07/06/17 13:37 Pulse Ox 99 07/06/17 13:37 Intake & Output 07/06/17 07/07/17 07/07/17 18:59 06:59 18:59 Intake Total 1200 Balance 1200 Intake: Oral 1200 Other: # Voids 4 Active Medications: Current Medications Acetaminophen (Tylenol) 650 mg PO Q4H PRN PRN Reason: Pain (Mild) Stop: 08/30/17 18:41 Last Admin: 07/05/17 16:00 Dose: 650 mg Al Hydrox/Mg Hydrox/Simethicone (Maalox) 30 ml PO Q6HR PRN PRN Reason: GI DISTRESS Stop: 08/30/17 18:41 Aspirin (Ecotrin) 81 mg PO DAILY [facility] Stop: 08/31/17 08:59 Last Admin: 07/06/17 08:14 Dose: 81 mg Clonazepam (Klonopin) 0.5 mg PO BID [facility] PRN Reason: Protocol Stop: 09/01/17 08:59 Last Admin: 07/06/17 16:54 Dose: 0.5 mg Divalproex Sodium (Depakote Dr) 500 mg PO TID [facility] PRN Reason: Protocol Stop: 09/02/17 08:59 Last Admin: 07/06/17 21:24 Dose: 500 mg Docusate Sodium (Colace) 250 mg PO DAILY [facility] Stop: 08/31/17 08:59 Last Admin: 07/06/17 08:15 Dose: 250 mg Ferrous Sulfate (Iron) 325 mg PO DAILY [facility] Stop: 08/31/17 08:59 Last Admin: 07/06/17 08:15 Dose: 325 mg Ibuprofen (Motrin) 400 mg PO BID [facility] Stop: 08/30/17 16:59 Last Admin: 07/06/17 16:54 Dose: 400 mg Insulin Aspart (Novolog Insulin Sliding Scale) 0 units SUBQ ACHS [facility] PRN Reason: Protocol Stop: 09/04/17 11:29 Last Admin: 07/07/17 06:56 Dose: Not Given Isosorbide Mononitrate (Imdur) 30 mg PO DAILY [facility] Stop: 08/31/17 08:59 Last Admin: 07/06/17 08:14 Dose: 30 mg Lorazepam (Ativan) 0.5 mg PO Q4HR PRN; Protocol PRN Reason: Anxiety Stop: 07/31/17 16:10 Last Admin: 07/06/17 14:06 Dose: 0.5 mg Magnesium Hydroxide (Milk Of Magnesia) 30 ml PO HS PRN PRN Reason: Constipation Magnesium Hydroxide (Milk Of Magnesia) 30 ml PO PRN PRN PRN Reason: Constipation Stop: 08/30/17 18:41 Metoprolol Succinate (Toprol Xl) 25 mg PO DAILY [facility] Stop: 08/31/17 08:59 Last Admin: 07/06/17 08:15 Dose: 25 mg Quetiapine Fumarate (Seroquel) 250 mg PO TID [facility] PRN Reason: Protocol Stop: 09/02/17 06:23 Last Admin: 07/06/17 21:24 Dose: 250 mg Sitagliptin Phosphate (Januvia) 25 mg PO DAILY [facility] Stop: 09/01/17 08:59 Last Admin: 07/06/17 08:14 Dose: 25 mg Zolpidem Tartrate (Ambien) 5 mg PO HS PRN PRN Reason: Insomnia Stop: 08/30/17 16:10 Last Admin: 07/05/17 20:51 Dose: 5 mg General: Alert, Oriented x3, No acute distress HEENT: Atraumatic, PERRLA, EOMI Neck: Supple Cardiovascular: Regular rate, Normal S1, Normal S2 Lungs: Clear to auscultation Abdomen: Bowel sounds, Soft Extremities: no Clubbing, no Cyanosis, no Edema Neurological: Normal gait, Normal speech Skin: no Rash Assessment/Plan - Problem List Patient Problems: All Active Problems AGITATION WITH VERBAL AND PHYSICAL THREA (Acute) - Assessment Assessment: Current Active Problems Problem Status Onset AGITATION WITH VERBAL AND PHYSICAL THREA Acute psychosis hypertension bipolar disorder diabetes mellitus ... will increase Januvia to 50mg PO daily. - Plan Plan: continue current orders.
[2017-07-07] MEDS: Multivitamin w/ Minerals Tab PO SCH (08:51)
[2017-07-07] MEDS: Ferrous Sulfate 325 MG TAB PO SCH (08:53)
[2017-07-08] MEDS: INSULIN ASPART SLIDING SCALE 100 UNITS/ML UNIT SUBQ SCH ×3 (06:37→21:32)
--- NOTE | 2017-07-08 08:14 | General Progress Note ---
Subjective - Review of Systems Service Date: 07/08/17 Subjective: VS T 98.6 P85 R20 BP 115/65 BS 122 this AM Objective - Results Result Diagrams: 07/01/17 13:56 07/01/17 13:56 Recent Labs: Laboratory Last Values WBC 6.4 Th/cmm (4.8-10.8) 07/01/17 13:56 RBC 3.85 Mil/cmm (4.30-5.70) L 07/01/17 13:56 Hgb 12.1 gm/dL (12-16) 07/01/17 13:56 Hct 35.3 % (41.0-60) L 07/01/17 13:56 MCV 91.8 fl (80-99) 07/01/17 13:56 MCH 31.4 pg (26.0-30.0) H 07/01/17 13:56 MCHC Differential 34.2 pg (28.0-36.0) 07/01/17 13:56 RDW 12.4 % (11.5-20.0) 07/01/17 13:56 Plt Count 173 Th/cmm (150-400) 07/01/17 13:56 MPV 7.2 fl 07/01/17 13:56 Neutrophils % 48.8 % (40.0-80.0) 07/01/17 13:56 Lymphocytes % 36.8 % (20.0-50.0) 07/01/17 13:56 Monocytes % 12.5 % (2.0-10.0) H 07/01/17 13:56 Eosinophils % 1.1 % (0.0-5.0) 07/01/17 13:56 Basophils % 0.8 % (0.0-2.0) 07/01/17 13:56 Sodium 134 mEq/L (136-145) L 07/01/17 13:56 Potassium 4.3 mEq/L (3.5-5.1) 07/01/17 13:56 Chloride 103 mEq/L (98-107) 07/01/17 13:56 Carbon Dioxide 28.0 mEq/L (21.0-31.0) 07/01/17 13:56 Anion Gap 7.3 (7.0-16.0) 07/01/17 13:56 BUN 20 mg/dL (7-25) 07/01/17 13:56 Creatinine 0.9 mg/dL (0.7-1.3) 07/01/17 13:56 Est GFR ( Amer) > 60.0 ml/min (>90) 07/01/17 13:56 Est GFR (Non-Af Amer) > 60.0 ml/min 07/01/17 13:56 BUN/Creatinine Ratio 22.2 07/01/17 13:56 Glucose 100 mg/dL (70-105) 07/01/17 13:56 POC Glucose 112 MG/DL (70 - 105) H 07/08/17 06:33 Hemoglobin A1c % 7.1 % (4.0-6.0) H 07/01/17 13:56 Calcium 9.3 mg/dL (8.6-10.3) 07/01/17 13:56 Total Bilirubin 0.3 mg/dL (0.3-1.0) 07/01/17 13:56 AST 19 U/L (13-39) 07/01/17 13:56 ALT 14 U/L (7-52) 07/01/17 13:56 Alkaline Phosphatase 53 U/L (34-104) 07/01/17 13:56 Total Protein 6.9 gm/dL (6.0-8.3) 07/01/17 13:56 Albumin 3.9 gm/dL (4.2-5.5) L 07/01/17 13:56 Globulin 3.0 gm/dL 07/01/17 13:56 Albumin/Globulin Ratio 1.3 (1.0-1.8) 07/01/17 13:56 Triglycerides 224 mg/dL (<150) H 07/01/17 13:56 Cholesterol 181 mg/dL (<200) 07/01/17 13:56 LDL Cholesterol Direct 97 mg/dL (75-193) 07/01/17 13:56 HDL Cholesterol 57 mg/dL (23-92) 07/01/17 13:56 TSH 1.89 uIU/ml (0.34-5.60) 07/01/17 13:56 Salicylates < 25.0 mg/L (30.0-100.0) L 07/01/17 13:56 Acetaminophen < 10.0 ug/mL (10.0-30.0) L 07/01/17 13:56 Valproic Acid 93.9 ug/mL (50.0-100.0) 07/07/17 07:50 Ethyl Alcohol < 10 mg/dL (0-10) 07/01/17 13:56 RPR NONREACTIVE (NONREACTIVE) 07/01/17 13:56 - Physical Exam Vitals and I&O: Vital Signs Temp 98.6 F 07/07/17 16:18 Pulse 85 07/07/17 16:18 Resp 20 07/07/17 16:18 BP 115/65 07/07/17 16:18 Pulse Ox 98 07/07/17 16:18 Intake & Output 07/07/17 07/08/17 07/08/17 18:59 06:59 18:59 Other: Stool Characteristics Soft Active Medications: Current Medications Acetaminophen (Tylenol) 650 mg PO Q4H PRN PRN Reason: Pain (Mild) Stop: 08/30/17 18:41 Last Admin: 07/05/17 16:00 Dose: 650 mg Al Hydrox/Mg Hydrox/Simethicone (Maalox) 30 ml PO Q6HR PRN PRN Reason: GI DISTRESS Stop: 08/30/17 18:41 Aspirin (Ecotrin) 81 mg PO DAILY [facility] Stop: 08/31/17 08:59 Last Admin: 07/07/17 08:48 Dose: 81 mg Clonazepam (Klonopin) 0.5 mg PO BID [facility] PRN Reason: Protocol Stop: 09/01/17 08:59 Last Admin: 07/07/17 17:07 Dose: 0.5 mg Divalproex Sodium (Depakote Dr) 500 mg PO TID [facility] PRN Reason: Protocol Stop: 09/02/17 08:59 Last Admin: 07/07/17 21:25 Dose: 500 mg Docusate Sodium (Colace) 250 mg PO DAILY [facility] Stop: 08/31/17 08:59 Last Admin: 07/07/17 08:51 Dose: 250 mg Ferrous Sulfate (Iron) 325 mg PO DAILY [facility] Stop: 08/31/17 08:59 Last Admin: 07/07/17 08:53 Dose: 325 mg Ibuprofen (Motrin) 400 mg PO BID [facility] Stop: 08/30/17 16:59 Last Admin: 07/07/17 17:08 Dose: 400 mg Insulin Aspart (Novolog Insulin Sliding Scale) 0 units SUBQ ACHS [facility] PRN Reason: Protocol Stop: 09/04/17 11:29 Last Admin: 07/08/17 06:37 Dose: Not Given Isosorbide Mononitrate (Imdur) 30 mg PO DAILY [facility] Stop: 08/31/17 08:59 Last Admin: 07/07/17 08:49 Dose: 30 mg Lorazepam (Ativan) 0.5 mg PO Q4HR PRN; Protocol PRN Reason: Anxiety Stop: 07/31/17 16:10 Last Admin: 07/06/17 14:06 Dose: 0.5 mg Magnesium Hydroxide (Milk Of Magnesia) 30 ml PO HS PRN PRN Reason: Constipation Magnesium Hydroxide (Milk Of Magnesia) 30 ml PO PRN PRN PRN Reason: Constipation Stop: 08/30/17 18:41 Metoprolol Succinate (Toprol Xl) 25 mg PO DAILY [facility] Stop: 08/31/17 08:59 Last Admin: 07/07/17 08:52 Dose: 25 mg Quetiapine Fumarate (Seroquel) 250 mg PO TID [facility] PRN Reason: Protocol Stop: 09/02/17 06:23 Last Admin: 07/07/17 21:26 Dose: 250 mg Sitagliptin Phosphate (Januvia) 50 mg PO DAILY [facility] Stop: 09/05/17 08:59 Last Admin: 07/07/17 08:53 Dose: 50 mg Zolpidem Tartrate (Ambien) 5 mg PO HS PRN PRN Reason: Insomnia Stop: 08/30/17 16:10 Last Admin: 07/05/17 20:51 Dose: 5 mg General: Alert, Oriented x3, No acute distress HEENT: Atraumatic, PERRLA, EOMI Neck: Supple Cardiovascular: Regular rate, Normal S1, Normal S2 Lungs: Clear to auscultation Abdomen: Bowel sounds, Soft Extremities: no Clubbing, no Cyanosis, no Edema Neurological: Normal gait, Normal speech Skin: no Rash Assessment/Plan - Problem List Patient Problems: All Active Problems AGITATION WITH VERBAL AND PHYSICAL THREA (Acute) - Assessment Assessment: Current Active Problems Problem Status Onset AGITATION WITH VERBAL AND PHYSICAL THREA Acute psychosis hypertension bipolar disorder diabetes mellitus ... will increase Januvia to 50mg PO daily. - Plan Plan: continue current orders. Nutritional Asmnt/Malnutr-PDOC - Dietary Evaluation Malnutrition Findings (Please click <Entered> for more info): Nutritional Asmnt/Malnutrition Start: 07/07/17 17: 43 Text: Status: Complete Freq: Document 07/07/17 17:43 SANJANA (Rec: 07/07/17 17:48 SANJANA [id number]) Nutritional Asmnt/Malnutrition Patient General Information Nutritional Screening Moderate Risk Diagnosis agitaion Pertinent Medical Hx/Surgical Hx HTN, bipolar Subjective Information Pt seen lying in bed at time of visit. Per notes, PO intake 100%. Current Diet Order/ Nutrition Support Low sodium Pertinent Medications colace, iron, novolog Pertinent Labs 07/01 na 134, A1c 7.1 07/06-07/07 POC 90-140 Nutritional Hx/Data Height 1.83 m Height (Calculated Centimeters) 182.9 Current Weight (lbs) 90.718 kg Weight (Calculated Kilograms) 90.7 Weight (Calculated Grams) 85762.5 [place] Body Weight 178 % [place] Body Weight 112 Body Mass Index (BMI) 27.1 Weight Status Overweight GI Symptoms GI Symptoms None Last BM 07/02 Difficult in: None Skin Integrity/Comment: dryness Current %PO Good (75-100%) Estimated Nutritional Goals BEE in Kcals: Using Current wt Calories/Kcals/Kg 23-27 Kcals Calculated 9657-1096 Protein: Using Current wt Protein g/k.8-1 Protein Calculated 73-91 Fluid: ml 9726-0576 Nutritional Problem No current Nutrition Prob Problem N/A Malnutrition Alert Protein-Calorie Malnutrition N/A Is there a minimum of two criteria No selected? Query Text:Check all the applicable criteria. A minimum of two criteria are recommended for diagnosis of either severe or non-severe malnutrition. Intervention/Recommendation Comments 1. Continue with current diet as ordered. 2. Monitor PO intake, wt, labs and skin integrity 3. F/U as low risk in 07/13 Expected Outcomes/Goals Expected Outcomes/Goals 1. PO intake to meet at least 75% of nutritional needs. 2. Wt stability, skin to remain intact, labs to approach WNL.
[2017-07-08] MEDS: Multivitamin w/ Minerals Tab PO SCH (09:51)
[2017-07-08] MEDS: Ferrous Sulfate 325 MG TAB PO SCH (09:51)
--- NOTE | 2017-07-09 02:08 | Progress Notes ---
DATE: 07/07/2017 SUBJECTIVE: Chart reviewed and the patient interviewed. Also discussed the patient's condition with the staff and reviewed records and labs. The patient is calmer than before and he seems to be less agitated and less irritable. The patient also is interacting more with peers. He still rambles and is still confused and talking to himself at times. He also easier to follow directions. Depakote blood level came back to be 12.5. ASSESSMENT: The patient showing some improvement and seems to be less psychotic. TREATMENT PLAN: We will continue monitoring his behavior and his medications closely and we will continue to follow up. JOB# [id number]
[2017-07-09] MEDS: INSULIN ASPART SLIDING SCALE 100 UNITS/ML UNIT SUBQ SCH (07:32)
--- NOTE | 2017-07-09 08:20 | General Progress Note ---
Subjective - Review of Systems Service Date: 07/09/17 Subjective: VS T 98.1 P113 R20 BP 141/89 BS 94 this AM Objective - Results Result Diagrams: 07/01/17 13:56 07/01/17 13:56 Recent Labs: Laboratory Last Values WBC 6.4 Th/cmm (4.8-10.8) 07/01/17 13:56 RBC 3.85 Mil/cmm (4.30-5.70) L 07/01/17 13:56 Hgb 12.1 gm/dL (12-16) 07/01/17 13:56 Hct 35.3 % (41.0-60) L 07/01/17 13:56 MCV 91.8 fl (80-99) 07/01/17 13:56 MCH 31.4 pg (26.0-30.0) H 07/01/17 13:56 MCHC Differential 34.2 pg (28.0-36.0) 07/01/17 13:56 RDW 12.4 % (11.5-20.0) 07/01/17 13:56 Plt Count 173 Th/cmm (150-400) 07/01/17 13:56 MPV 7.2 fl 07/01/17 13:56 Neutrophils % 48.8 % (40.0-80.0) 07/01/17 13:56 Lymphocytes % 36.8 % (20.0-50.0) 07/01/17 13:56 Monocytes % 12.5 % (2.0-10.0) H 07/01/17 13:56 Eosinophils % 1.1 % (0.0-5.0) 07/01/17 13:56 Basophils % 0.8 % (0.0-2.0) 07/01/17 13:56 Sodium 134 mEq/L (136-145) L 07/01/17 13:56 Potassium 4.3 mEq/L (3.5-5.1) 07/01/17 13:56 Chloride 103 mEq/L (98-107) 07/01/17 13:56 Carbon Dioxide 28.0 mEq/L (21.0-31.0) 07/01/17 13:56 Anion Gap 7.3 (7.0-16.0) 07/01/17 13:56 BUN 20 mg/dL (7-25) 07/01/17 13:56 Creatinine 0.9 mg/dL (0.7-1.3) 07/01/17 13:56 Est GFR ( Amer) > 60.0 ml/min (>90) 07/01/17 13:56 Est GFR (Non-Af Amer) > 60.0 ml/min 07/01/17 13:56 BUN/Creatinine Ratio 22.2 07/01/17 13:56 Glucose 100 mg/dL (70-105) 07/01/17 13:56 POC Glucose 94 MG/DL (70 - 105) 07/09/17 06:25 Hemoglobin A1c % 7.1 % (4.0-6.0) H 07/01/17 13:56 Calcium 9.3 mg/dL (8.6-10.3) 07/01/17 13:56 Total Bilirubin 0.3 mg/dL (0.3-1.0) 07/01/17 13:56 AST 19 U/L (13-39) 07/01/17 13:56 ALT 14 U/L (7-52) 07/01/17 13:56 Alkaline Phosphatase 53 U/L (34-104) 07/01/17 13:56 Total Protein 6.9 gm/dL (6.0-8.3) 07/01/17 13:56 Albumin 3.9 gm/dL (4.2-5.5) L 07/01/17 13:56 Globulin 3.0 gm/dL 07/01/17 13:56 Albumin/Globulin Ratio 1.3 (1.0-1.8) 07/01/17 13:56 Triglycerides 224 mg/dL (<150) H 07/01/17 13:56 Cholesterol 181 mg/dL (<200) 07/01/17 13:56 LDL Cholesterol Direct 97 mg/dL (75-193) 07/01/17 13:56 HDL Cholesterol 57 mg/dL (23-92) 07/01/17 13:56 TSH 1.89 uIU/ml (0.34-5.60) 07/01/17 13:56 Salicylates < 25.0 mg/L (30.0-100.0) L 07/01/17 13:56 Acetaminophen < 10.0 ug/mL (10.0-30.0) L 07/01/17 13:56 Valproic Acid 93.9 ug/mL (50.0-100.0) 07/07/17 07:50 Ethyl Alcohol < 10 mg/dL (0-10) 07/01/17 13:56 RPR NONREACTIVE (NONREACTIVE) 07/01/17 13:56 - Physical Exam Vitals and I&O: Vital Signs Temp 98.1 F 07/08/17 20:08 Pulse 113 07/08/17 20:08 Resp 20 07/08/17 20:08 BP 141/89 07/08/17 20:08 Pulse Ox 96 07/08/17 20:08 Intake & Output 07/08/17 07/09/17 07/09/17 18:59 06:59 18:59 Intake Total 250 Balance 250 Intake: Oral 250 Other: # Voids 3 Stool Characteristics Soft Soft Active Medications: Current Medications Acetaminophen (Tylenol) 650 mg PO Q4H PRN PRN Reason: Pain (Mild) Stop: 08/30/17 18:41 Last Admin: 07/05/17 16:00 Dose: 650 mg Al Hydrox/Mg Hydrox/Simethicone (Maalox) 30 ml PO Q6HR PRN PRN Reason: GI DISTRESS Stop: 08/30/17 18:41 Aspirin (Ecotrin) 81 mg PO DAILY [facility] Stop: 08/31/17 08:59 Last Admin: 07/08/17 09:51 Dose: 81 mg Clonazepam (Klonopin) 0.5 mg PO BID [facility] PRN Reason: Protocol Stop: 09/01/17 08:59 Last Admin: 07/08/17 17:13 Dose: 0.5 mg Divalproex Sodium (Depakote Dr) 500 mg PO TID [facility] PRN Reason: Protocol Stop: 09/02/17 08:59 Last Admin: 07/08/17 21:24 Dose: Not Given Docusate Sodium (Colace) 250 mg PO DAILY [facility] Stop: 08/31/17 08:59 Last Admin: 07/08/17 09:49 Dose: 250 mg Ferrous Sulfate (Iron) 325 mg PO DAILY [facility] Stop: 08/31/17 08:59 Last Admin: 07/08/17 09:51 Dose: 325 mg Ibuprofen (Motrin) 400 mg PO BID [facility] Stop: 08/30/17 16:59 Last Admin: 07/08/17 17:14 Dose: 400 mg Insulin Aspart (Novolog Insulin Sliding Scale) 0 units SUBQ ACHS [facility]IMITRIS PRN Reason: Protocol Stop: 09/04/17 11:29 Last Admin: 07/08/17 21:32 Dose: Not Given Isosorbide Mononitrate (Imdur) 30 mg PO DAILY [facility] Stop: 08/31/17 08:59 Last Admin: 07/08/17 09:52 Dose: 30 mg Magnesium Hydroxide (Milk Of Magnesia) 30 ml PO HS PRN PRN Reason: Constipation Magnesium Hydroxide (Milk Of Magnesia) 30 ml PO PRN PRN PRN Reason: Constipation Stop: 08/30/17 18:41 Metoprolol Succinate (Toprol Xl) 25 mg PO DAILY [facility] Stop: 08/31/17 08:59 Last Admin: 07/08/17 09:51 Dose: 25 mg Quetiapine Fumarate (Seroquel) 250 mg PO TID [facility] PRN Reason: Protocol Stop: 09/02/17 06:23 Last Admin: 07/08/17 21:24 Dose: Not Given Sitagliptin Phosphate (Januvia) 50 mg PO DAILY [facility] Stop: 09/05/17 08:59 Last Admin: 07/08/17 09:51 Dose: 50 mg General: Alert, Oriented x3, No acute distress HEENT: Atraumatic, PERRLA, EOMI Neck: Supple Cardiovascular: Regular rate, Normal S1, Normal S2 Lungs: Clear to auscultation Abdomen: Bowel sounds, Soft Extremities: no Clubbing, no Cyanosis, no Edema Neurological: Normal gait, Normal speech Skin: no Rash Assessment/Plan - Problem List Patient Problems: All Active Problems AGITATION WITH VERBAL AND PHYSICAL THREA (Acute) - Assessment Assessment: Current Active Problems Problem Status Onset AGITATION WITH VERBAL AND PHYSICAL THREA Acute psychosis hypertension bipolar disorder diabetes mellitus ... will increase Januvia to 50mg PO daily. - Plan Plan: continue current orders. Nutritional Asmnt/Malnutr-PDOC - Dietary Evaluation Malnutrition Findings (Please click <Entered> for more info): Nutritional Asmnt/Malnutrition Start: 07/07/17 17: 43 Text: Status: Complete Freq: Document 07/07/17 17:43 SANJANA (Rec: 07/07/17 17:48 SANJANA [id number]) Nutritional Asmnt/Malnutrition Patient General Information Nutritional Screening Moderate Risk Diagnosis agitaion Pertinent Medical Hx/Surgical Hx HTN, bipolar Subjective Information Pt seen lying in bed at time of visit. Per notes, PO intake 100%. Current Diet Order/ Nutrition Support Low sodium Pertinent Medications colace, iron, novolog Pertinent Labs 07/01 na 134, A1c 7.1 07/06-07/07 POC 90-140 Nutritional Hx/Data Height 1.83 m Height (Calculated Centimeters) 182.9 Current Weight (lbs) 90.718 kg Weight (Calculated Kilograms) 90.7 Weight (Calculated Grams) 39806.5 [place] Body Weight 178 % [place] Body Weight 112 Body Mass Index (BMI) 27.1 Weight Status Overweight GI Symptoms GI Symptoms None Last BM 07/02 Difficult in: None Skin Integrity/Comment: dryness Current %PO Good (75-100%) Estimated Nutritional Goals BEE in Kcals: Using Current wt Calories/Kcals/Kg 23-27 Kcals Calculated 4576-6578 Protein: Using Current wt Protein g/k.8-1 Protein Calculated 73-91 Fluid: ml 1787-0310 Nutritional Problem No current Nutrition Prob Problem N/A Malnutrition Alert Protein-Calorie Malnutrition N/A Is there a minimum of two criteria No selected? Query Text:Check all the applicable criteria. A minimum of two criteria are recommended for diagnosis of either severe or non-severe malnutrition. Intervention/Recommendation Comments 1. Continue with current diet as ordered. 2. Monitor PO intake, wt, labs and skin integrity 3. F/U as low risk in 07/13 Expected Outcomes/Goals Expected Outcomes/Goals 1. PO intake to meet at least 75% of nutritional needs. 2. Wt stability, skin to remain intact, labs to approach WNL.
--- NOTE | 2017-07-09 08:26 | Discharge Summary ---
DATE OF DISCHARGE: 07/09/2017 DATE OF DISCHARGE: 07/09/2017. FINAL DIAGNOSES AND PRIMARY DIAGNOSES: Schizoaffective disorder, bipolar type with psychosis. REASON FOR HOSPITALIZATION: The patient was admitted to the hospital because of increased agitation and irritability in [place] where he lives. HOSPITAL COURSE: The patient continued to be agitated and in irritable mood. The patient also was anxious and he wanted to be left alone. The patient was compliant with taking his medications and the patient denied any side effects of medications. Gradually, the patient's affect was brighter. The patient was less irritable and less agitated. He also was able to follow directions easy. The patient was discharged from the hospital and returned back to [place]. Physical examination of the patient showed no major medical problems and the patient had no major medical problems while in the hospital. Dr. Nair monitored his medications closely. Blood workup was also basically within normal. AFTER-DISCHARGE PLANS: The patient discharged from the hospital and returned to [place] with plans for outpatient treatment and follow up as an outpatient. [facility]# [id number]
[2017-07-09] MEDS: Multivitamin w/ Minerals Tab PO SCH (09:25)
[2017-07-09] MEDS: Ferrous Sulfate 325 MG TAB PO SCH (09:28)
== END 2017-07-09 14:15 | DRG 885 ==
LOC: ER 13:29 → UNDOADMIN 15:28 → GERO 15:28
PROVIDERS: ADMIT Psychiatry & Neurology Psychiatry; ATTEND Psychiatry & Neurology Psychiatry
DX: F25.0 Schizoaffective disorder, bipolar type (principal); E11.9 Type 2 diabetes mellitus without complications; F29 Unspecified psychosis not due to a substance or known physiological condition; Z82.49 Family history of ischemic heart disease and other diseases of the circulatory system; I10 Essential (primary) hypertension; Z79.82 Long term (current) use of aspirin
CPT/HCPCS: 36415-UA; 80053-TC; 80061-TC; 80164-TC; 80320-TC; 80329-TC; 82948-90; 83036-90; 84443-TC; 85025-TC; 86592-TC; 93005; G0410; J1200; J1630; J1815; J2060; Z7610

== ENCOUNTER 2018-05-01 17:40 | Inpatient (IN) | payer MEDICARE, MEDICAID ==
[2018-05-01 18:20] LABS: % BASOPHILS 0.5 % (0.0-2.0); % EOSINOPHILS 1.9 % (0.0-5.0); % LYMPHOCYTES 41.3 % (20.0-50.0); % MONOCYTES 12.4 % (2.0-10.0); % NEUTROPHILS 43.9 % (40.0-80.0); EOSINOPHILE ABSOLUTE 0.1 Th/cmm (0.1-0.4); HEMATOCRIT 36.9 % (41.0-60); HEMOGLOBIN 12.3 gm/dL (12-16); LYMPHOCYTE ABSOLUTE 2.7 Th/cmm (1.5-3.0); MEAN CELL VOLUME 90.6 fl (80-99); MEAN CORPUSCULAR HEMOGLOBIN 30.2 pg (26.0-30.0); MEAN CORPUSCULAR HGB CONC 33.3 pg (28.0-36.0); MEAN PLATELET VOLUME 7.3 fl; MONOCYTE ABSOLUTE 0.8 Th/cmm (0.3-1.0); PLATELET COUNT 212 Th/cmm (150-400); RED BLOOD COUNT 4.07 Mil/cmm (4.30-5.70); RED CELL DISTRIBUTION WIDTH 12.7 % (11.5-20.0); WHITE BLOOD COUNT 6.6 Th/cmm (4.8-10.8)
[2018-05-01 18:25] LABS: URINE SOURCE CLEAN C
[2018-05-01 18:32] LABS: URINE BILIRUBIN NEGATIVE (NEGATIVE); URINE BLOOD NEGATIVE (NEGATIVE); URINE GLUCOSE (UA) NEGATIVE (NEGATIVE); URINE KETONE NEGATIVE (NEGATIVE); URINE LEUKOCYTE ESTERASE NEGATIVE (NEGATIVE); URINE NITRATE NEGATIVE (NEGATIVE); URINE PROTEIN NEGATIVE (NEGATIVE); URINE UROBILINOGEN 0.2 E.U./dL (0.2 - 1.0)
[2018-05-01 18:33] LABS: URINE CLARITY CLEAR (CLEAR); URINE COLOR YELLOW; URINE MICROSCOPIC INDICATED? YES
--- NOTE | 2018-05-01 18:36 | ED Physician Chart ---
ED Chief Complaint/HPI - Patient Information Date Seen:: 05/01/18 Time Seen:: 18:00 Chief Complaint:: increased agitation & threats History of Present Illness:: increased agitation & threats Allergies:: Allergies Allergy/AdvReac Type Severity Reaction Status Date / Time No Known Allergies Allergy Verified 05/14/17 16:19 Vitals:: Vital Signs - 8 hr 05/01/18 18:00 Temp 97.6 F HR 64 RR 17 BP 110/50 O2 Sat % 97 Historian:: Medical Records Review:: Transfer documents Reviewed ED Review of Systems - Review of Systems General/Constitutional: No fever, No chills, No weight loss, No weakness, No diaphoresis, No edema, No loss of appetite Skin: No skin lesions, No rash, No bruising Head: No headache, No light-headedness Eyes: No loss of vision, No pain, No diplopia ENT: No earache, No nasal drainage, No sore throat, No tinnitus Neck: No neck pain, No swelling, No thyromegaly, No stiffness, No mass noted Cardio Vascular: No chest pain, No palpitations, No PND, No orthopnea, No edema Pulmonary: No SOB, No cough, No sputum, No wheezing GI: No nausea, No vomiting, No diarrhea, No pain, No melena, No hematochezia, No constipation, No hematemesis G/U: No dysuria, No frequency, No hematuria Musculoskeletal: No bone or joint pain, No back pain, No muscle pain Endocrine: No polyuria, No polydipsia Psychiatric: No prior psych history, No depression, No anxiety, No suicidal ideation Hematopoietic: No bruising, No lymphadenopathy Allergic/Immuno: No urticaria, No angioedema Neurological: No syncope, No focal symptoms, No weakness, No paresthesia, No headache, No seizure, No dizziness, No confusion, No vertigo ED Past Medical History - Past Medical History Obtainable: No Past Medical History: HTN, DM Psychiatricy History: Schizophrenia, Bipolar Family Medical History - Family Member Mother History Unknown: Yes Hx Family Cancer: No Hx Family Coronary Artery Disease: No Hx Family Congestive Heart Failure: No Hx Family Stroke: No Hx Family Diabetes: No Hx Family AIDS: No Hx Family COPD: Yes ED Physical Exam - Physical Examination General/Constitutional: Awake, Well-developed, well-nourished, Alert, No distress, GCS 15, Non-toxic appearing, Ambulatory Other Gen/Cons comments:: yelling out intermittently. talking out his head. Head: Atraumatic Eyes: Lids, conjuctiva normal, PERRL, EOMI Skin: Nl inspection, No rash, No skin lesions, No ecchymosis, Well hydrated, No lymphadenopathy ENMT: External ears, nose nl Neck: Nontender, No nuchal rigidity, No stridor Respiratory: Nl effort/Exclusion, Clear to Auscultation, No Wheeze/Rhonchi/Rales Cardio Vascular: RRR, No murmur, gallop, rubs, NL S1 S2 GI: No tenderness/rebounding/guarding, No organomegaly, No hernia, Normal BS's, Nondistended, No mass/bruits, No McBurney tenderness : No CVA tenderness Extremities: No tenderness or effusion, Full ROM, normal strength in all extremities, No edema, Normal digits & nails Neuro/Psych: Normal sensory exam, Normal motor strength, Normal gait, No focal deficits Other Neuro/Psych comments:: agitated Misc: Normal back ED Assessment - Assessment General Assessment: PATIENT IS CLEARED FROM A MEDICAL STANDPOINT FOR GEROPSYCH. ED Septic Shock - . Is Septic Shock (SBP<90, OR Lactate>4 mmol\L) present?: No - <6hrs of presentation: Vital Signs: Vital Signs - 8 hr 05/01/18 18:00 Temp 97.6 F HR 64 RR 17 BP 110/50 O2 Sat % 97 ED Reassessment (Disposition) - Reassessment Reassessment Condition:: Unchanged - Diagnosis Diagnosis:: Increased agitation Danger to self and others Verbal outbursts Threatening caregivers PATIENT IS CLEARED FROM A MEDICAL STANDPOINT FOR GEROPSYCH. - Aftercare/Follow up Instructions Notes:: PATIENT IS CLEARED FROM A MEDICAL STANDPOINT FOR GEROPSYCH. - Patient Disposition Discharge/Transfer:: Acute Care w/in this hosp Admitted to:: [facility] Admitting Medical Physician:: Sincere Nair Admitting Psych Physician:: Fish Crawley Condition at Disposition:: Stable, Unchanged
[2018-05-01 18:37] LABS: ALB/GLOB RATIO 1.2 (1.0-1.8); ALBUMIN 3.9 gm/dL (4.2-5.5); ALKALINE PHOSPHATASE 63 U/L (34-104); ANION GAP 11.2 (7.0-16.0); BILIRUBIN,TOTAL 0.3 mg/dL (0.3-1.0); BUN - UREA NITROGEN 22 mg/dL (7-25); CALCIUM SERUM 9.3 mg/dL (8.6-10.3); CARBON DIOXIDE 25.9 mEq/L (21.0-31.0); CHLORIDE 106 mEq/L (98-107); CREATININE - SERUM 0.9 mg/dL (0.7-1.3); GFR AFRICAN-AMERICAN > 60.0 ml/min (>90); GFR NON AFRICAN-AMERICAN > 60.0 ml/min; GLUCOSE 102 mg/dL (70-105); MAGNESIUM 2.5 mg/dL (1.9-2.7); POTASSIUM SERUM 4.1 mEq/L (3.5-5.1); SGOT 24 U/L (13-39); SGPT/ALT 20 U/L (7-52); SODIUM SERUM 139 mEq/L (136-145); TOTAL PROTEIN,SERUM 7.2 gm/dL (6.0-8.3)
[2018-05-01 18:48] LABS: AMPHETAMINE URINE NEGATIVE (NEGATIVE); BARBITURATES URINE NEGATIVE (NEGATIVE); BENZODIAZEPINES QUAL URINE NEGATIVE (NEGATIVE); CANNABINOID THC NEGATIVE (NEGATIVE); COCAINE METABOLITE QUAL URINE NEGATIVE (NEGATIVE); METHADONE URINE NEGATIVE (NEGATIVE); METHAMPHETAMINES QUAL URINE NEGATIVE (NEGATIVE); OPIATES (MORPHINE) QUAL. URINE NEGATIVE (NEGATIVE); PHENCYCLIDINE (PCP) URINE NEGATIVE (NEGATIVE); TRICYCLICS (TCA) QUAL. URINE POSITIVE (NEGATIVE)
[2018-05-01 18:52] LABS: URINE BACTERIA FEW /hpf (NONE SEEN); URINE EPITHELIAL CELLS FEW /lpf (FEW); URINE RBC NONE SEEN /hpf (0-5); URINE WBC 0-2 /hpf (0-5)
[2018-05-01 20:54] VITALS: BP 96/54
--- NOTE | 2018-05-02 05:33 | History and Physical ---
History of Present Illness - HPI Chief Complaint: Psychosis HPI: 62 y/o male who presents to [facility] ER for change in behavior noted at the [facility] home by the staff. Patient was more agitated and more aggressive towards other residents and was sent for evaluation. Initial labwork was essentially normal. Patient has a PMH which includes anxiety disorder, schizophrenia, anemia, hyperlipidemia, HTN, constipation, DM type 2. He was subsequently admitted to [facility] for further evaluation and treatment. Vital Signs: Last Vital Signs Temp 97.8 F 05/01/18 20:26 Pulse 64 05/01/18 20:26 Resp 18 05/01/18 20:26 BP 96/54 05/01/18 20:53 Pulse Ox 95 05/01/18 20:26 Past Medical History Cardiovascular: Report: HTN, Hyperlipidemia Pulmonary: Report: No Pertinent Hx OPERATIONS CLERK: Report: No Pertinent Hx GI: Report: Constipation Psych: Report: Anxiety, Schizophrenia Musculoskeletal: Report: No Pertinent Hx Rheumatologic: Report: No pertinent Hx Infectious Disease: Report: No Pertinent Hx Renal/: Report: No Pertinent Hx Endocrine: Report: Diabetes Dermatology: Report: No Pertinent Hx - Past Surgical History Past Surgical History: No pertinent Hx Family Medical History - Family Member Mother History Unknown: Yes Hx Family Cancer: No Hx Family Coronary Artery Disease: No Hx Family Congestive Heart Failure: No Hx Family Stroke: No Hx Family Diabetes: No Hx Family AIDS: No Hx Family COPD: Yes Social History Smoke: No Alcohol: None Drugs: None Lives: Longterm - Medications Home Medications: Home Medication Medication Instructions Recorded Type Aspirin EC [Ecotrin] 81 mg PO DAILY ect 05/27/17 Rx Docusate Sodium [Colace] 250 mg PO DAILY sgl 05/27/17 Rx Ferrous Sulfate [Iron] 325 mg PO DAILY tab 05/27/17 Rx Multivitamin w/ Minerals 1 tab PO DAILY tab 05/27/17 Rx [Theragran M] Magnesium Hydroxide [Milk of 30 ml PO HS PRN udc 07/09/17 Rx Magnesia] clonazePAM [klonoPIN*] 0.5 mg PO BID tab 07/09/[address] [Depakote DR] 500 mg PO DAILY 05/01/18 History Ezetimibe [Zetia] 10 mg PO HS 05/01/18 History Linagliptin [Tradjenta] 5 mg PO DAILY 05/01/18 History Metoprolol Tartrate 50 mg PO BID 05/01/18 History Mylanta 30 ml PO Q4H PRN 05/01/18 History [place]-3 Acid Ethyl Esters [Lovaza] 1 gm PO DAILY 05/01/18 History QUEtiapine Fumarate [SEROquel] 200 mg PO BID 05/01/18 History QUEtiapine Fumarate [SEROquel] 300 mg PO HS 05/01/18 History - Allergies Allergies/Adverse Reactions: Allergies Allergy/AdvReac Type Severity Reaction Status Date / Time No Known Allergies Allergy Verified 05/14/17 16:19 Review of Systems - Review of Systems Constitutional: Report: No Significant Eyes: Report: No Significant ENT: Report: No Significant Respiratory: Report: No Significant Cardiovascular: Report: No Significant Gastrointestinal: Report: No Significant Genitourinary: Report: No Significant Musculoskeletal: Report: No Significant Skin: Report: No Significant Neurological: Report: No Significant Physical Exam - Physical Exam HEENT: Report: Ears Nose Throat within normal limits, Pharnyx within normal limits Neck: Report: Within normal limits Cardiovascular Systems: Report: +s1/s2 noted, Regular, Rate and Rhythm Respiratory: Report: Breath Sounds are within normal limits Abdomen: Report: Non-tender to palpation Back: Report: Inspection of back is within normal limits. Extremities: Report: Non-tender to palpation. Skin: Report: Color of skin is within normal limits Neuro/Psych: Report: Mood affect is within normal limits - Lab Results All Lab Results last 24 hours: Laboratory Results - last 24 hr 05/01/18 05/01/18 05/01/18 18:15 18:15 18:15 WBC 6.6 RBC 4.07 L Hgb 12.3 Hct 36.9 L MCV 90.6 MCH 30.2 H MCHC Differential 33.3 RDW 12.7 Plt Count 212 MPV 7.3 Neutrophils % 43.9 Lymphocytes % 41.3 Monocytes % 12.4 H Eosinophils % 1.9 Basophils % 0.5 Sodium 139 Potassium 4.1 Chloride 106 Carbon Dioxide 25.9 Anion Gap 11.2 BUN 22 Creatinine 0.9 Est GFR ( Amer) > 60.0 Est GFR (Non-Af Amer) > 60.0 BUN/Creatinine Ratio 24.4 Glucose 102 Calcium 9.3 Phosphorus 4.0 Magnesium 2.5 Total Bilirubin 0.3 AST 24 ALT 20 Alkaline Phosphatase 63 Total Protein 7.2 Albumin 3.9 L Globulin 3.3 Albumin/Globulin Ratio 1.2 TSH 2.65 Urine Source Urine Color Urine Clarity Urine pH Ur Specific [place] Urine Protein Urine Glucose (UA) Urine Ketones Urine Blood Urine Nitrate Urine Bilirubin Urine Urobilinogen Ur Leukocyte Esterase Urine RBC Urine WBC Ur Epithelial Cells Urine Bacteria Urine Opiates Screen Urine Methadone Screen Ur Barbiturates Screen Ur Tricyclics Screen Ur Phencyclidine Scrn Amphetamines Screen U Methamphetamines Scrn U Benzodiazepines Scrn U Cocaine Metab Screen U Cannabinoids Screen 05/01/18 05/01/18 18:25 18:25 WBC RBC Hgb Hct MCV MCH MCHC Differential RDW Plt Count MPV Neutrophils % Lymphocytes % Monocytes % Eosinophils % Basophils % Sodium Potassium Chloride Carbon Dioxide Anion Gap BUN Creatinine Est GFR ( Amer) Est GFR (Non-Af Amer) BUN/Creatinine Ratio Glucose Calcium Phosphorus Magnesium Total Bilirubin AST ALT Alkaline Phosphatase Total Protein Albumin Globulin Albumin/Globulin Ratio TSH Urine Source CLEAN C Urine Color YELLOW Urine Clarity CLEAR Urine pH 6.0 Ur Specific [place] 1.010 Urine Protein NEGATIVE Urine Glucose (UA) NEGATIVE Urine Ketones NEGATIVE Urine Blood NEGATIVE Urine Nitrate NEGATIVE Urine Bilirubin NEGATIVE Urine Urobilinogen 0.2 Ur Leukocyte Esterase NEGATIVE Urine RBC NONE SEEN Urine WBC 0-2 Ur Epithelial Cells FEW Urine Bacteria FEW Urine Opiates Screen NEGATIVE Urine Methadone Screen NEGATIVE Ur Barbiturates Screen NEGATIVE Ur Tricyclics Screen POSITIVE H Ur Phencyclidine Scrn NEGATIVE Amphetamines Screen NEGATIVE U Methamphetamines Scrn NEGATIVE U Benzodiazepines Scrn NEGATIVE U Cocaine Metab Screen NEGATIVE U Cannabinoids Screen NEGATIVE - Assessment Assessment: Current Active Problems Problem Status Onset AGITATION WITH VERBAL THREATS Acute psychosis anxiety disorder schizophrenia anemia hyperlipidemia HTN constipation Type 2 DM - Plan Plan: continue current meds admit to [facility] for further evaluation and treatment.
[2018-05-02 07:23] LABS: CHOLESTEROL 144 mg/dL (<200); HDL -HIGH DENSITY LIPOPROTEIN 49 mg/dL (23-92); TRIGLYCERIDES 124 mg/dL (<150)
[2018-05-02] MEDS: Ferrous Sulfate 325 MG TAB PO SCH (09:32)
--- NOTE | 2018-05-02 13:30 | History & Physical ---
ADMIT DATE: 05/01/2018 IDENTIFYING INFORMATION: The patient is a 62-year-old male. CHIEF COMPLAINT: "No answer." HISTORY OF PRESENT ILLNESS: The patient was referred to [facility], came from a nursing facility because of agitation and aggressive behavior toward other residents, was sent for evaluation. Initial lab work was normal. The patient has anxiety problem with a history of schizophrenia, anemia, hyperlipidemia, and hypertension. The patient himself was a poor historian. He is unable to tell me where he is, why he is here. He denies any auditory or visual hallucination. Would not answer any question regarding suicide, homicide, or hallucinations; unpredictable, impulsive with a history of schizophrenia. PAST PSYCHIATRIC HISTORY: Schizophrenia. Denies substance abuse. When I asked him if he uses any alcohol or drugs, he said that he uses milk and [place]. MEDICAL HISTORY: Hyperlipidemia and hypertension. MEDICATIONS: The patient has been on Seroquel 300 mg at bedtime, 200 mg twice a day. The patient is also anemic, on iron. He is also on Depakote 500 mg daily, aspirin, clonazepam 0.5 mg twice a day. FAMILY AND SOCIAL HISTORY: The patient reports he is single, never , no children. He reported that he has high school education, worked as a ____. Denies substance abuse. He reports he drinks milk and orange. He denies family history of psychotic disorder. He came from [place]. MENTAL STATUS EXAMINATION: The patient is appropriately dressed, not very groomed. Mood is depressed. Affect is constricted. Thoughts are concrete. Speech is coherent, yet he was whispering. He was able to tell me the date, being 05/02/2018, but he said it is . Unable to state a safe plan for self-care. He knew the current President being Osbaldo. He knew his age being 62. He is internally preoccupied, acting aggressive, irritable. He was denying any intent to harm himself or anybody or any hallucination; however, he is a poor historian. He is easily agitated. Long-term is good for age, date of . His recent memory is poor. Cannot remember the events that led to him coming here because of his psychosis. Insight and judgment is impaired. IMPRESSION: Schizoaffective disorder. MEDICAL DIAGNOSES: Hypertension and hyperlipidemia. The patient has no known drug allergy. His assets, he is accepting treatment. Negative poor coping skills. INITIAL TREATMENT PLAN: The patient will be continued on medication. We will adjust medication as needed. ESTIMATED LENGTH OF STAY: 3-7 days. DISCHARGE CRITERIA: Decreasing psychosis, agitation. After discharge, outpatient treatment. JOB# [id number]
--- NOTE | 2018-05-03 06:17 | General Progress Note ---
Subjective - Review of Systems Service Date: 05/03/18 Subjective: Awake, alert, no acute distress. but confused VS T97 P57 R 18 BP 145/85 Objective - Results Result Diagrams: 05/01/18 18:15 05/01/18 18:15 Recent Labs: Laboratory Last Values WBC 6.6 Th/cmm (4.8-10.8) 05/01/18 18:15 RBC 4.07 Mil/cmm (4.30-5.70) L 05/01/18 18:15 Hgb 12.3 gm/dL (12-16) 05/01/18 18:15 Hct 36.9 % (41.0-60) L 05/01/18 18:15 MCV 90.6 fl (80-99) 05/01/18 18:15 MCH 30.2 pg (26.0-30.0) H 05/01/18 18:15 MCHC Differential 33.3 pg (28.0-36.0) 05/01/18 18:15 RDW 12.7 % (11.5-20.0) 05/01/18 18:15 Plt Count 212 Th/cmm (150-400) 05/01/18 18:15 MPV 7.3 fl 05/01/18 18:15 Neutrophils % 43.9 % (40.0-80.0) 05/01/18 18:15 Lymphocytes % 41.3 % (20.0-50.0) 05/01/18 18:15 Monocytes % 12.4 % (2.0-10.0) H 05/01/18 18:15 Eosinophils % 1.9 % (0.0-5.0) 05/01/18 18:15 Basophils % 0.5 % (0.0-2.0) 05/01/18 18:15 Sodium 139 mEq/L (136-145) 05/01/18 18:15 Potassium 4.1 mEq/L (3.5-5.1) 05/01/18 18:15 Chloride 106 mEq/L (98-107) 05/01/18 18:15 Carbon Dioxide 25.9 mEq/L (21.0-31.0) 05/01/18 18:15 Anion Gap 11.2 (7.0-16.0) 05/01/18 18:15 BUN 22 mg/dL (7-25) 05/01/18 18:15 Creatinine 0.9 mg/dL (0.7-1.3) 05/01/18 18:15 Est GFR ( Amer) > 60.0 ml/min (>90) 05/01/18 18:15 Est GFR (Non-Af Amer) > 60.0 ml/min 18 18:15 BUN/Creatinine Ratio 24.4 05/01/18 18:15 Glucose 102 mg/dL (70-105) 05/01/18 18:15 Calcium 9.3 mg/dL (8.6-10.3) 05/01/18 18:15 Phosphorus 4.0 mg/dL (2.5-5.0) 05/01/18 18:15 Magnesium 2.5 mg/dL (1.9-2.7) 05/01/18 18:15 Total Bilirubin 0.3 mg/dL (0.3-1.0) 05/01/18 18:15 AST 24 U/L (13-39) 05/01/18 18:15 ALT 20 U/L (7-52) 05/01/18 18:15 Alkaline Phosphatase 63 U/L (34-104) 05/01/18 18:15 Total Protein 7.2 gm/dL (6.0-8.3) 05/01/18 18:15 Albumin 3.9 gm/dL (4.2-5.5) L 05/01/18 18:15 Globulin 3.3 gm/dL 05/01/18 18:15 Albumin/Globulin Ratio 1.2 (1.0-1.8) 05/01/18 18:15 Triglycerides 124 mg/dL (<150) 05/02/18 06:57 Cholesterol 144 mg/dL (<200) 05/02/18 06:57 LDL Cholesterol Direct 85 mg/dL (75-193) 05/02/18 06:57 HDL Cholesterol 49 mg/dL (23-92) 05/02/18 06:57 TSH 2.65 uIU/ml (0.34-5.60) 05/01/18 18:15 Urine Source CLEAN C 05/01/18 18:25 Urine Color YELLOW 05/01/18 18:25 Urine Clarity CLEAR (CLEAR) 05/01/18 18:25 Urine pH 6.0 (4.6 - 8.0) 05/01/18 18:25 Ur Specific [place] 1.010 (1.005-1.030) 05/01/18 18:25 Urine Protein NEGATIVE mg/dL (NEGATIVE) 05/01/18 18:25 Urine Glucose (UA) NEGATIVE mg/dL (NEGATIVE) 05/01/18 18:25 Urine Ketones NEGATIVE mg/dL (NEGATIVE) 05/01/18 18:25 Urine Blood NEGATIVE (NEGATIVE) 05/01/18 18:25 Urine Nitrate NEGATIVE (NEGATIVE) 05/01/18 18:25 Urine Bilirubin NEGATIVE (NEGATIVE) 05/01/18 18:25 Urine Urobilinogen 0.2 E.U./dL (0.2 - 1.0) 05/01/18 18:25 Ur Leukocyte Esterase NEGATIVE (NEGATIVE) 05/01/18 18:25 Urine RBC NONE SEEN /hpf (0-5) 05/01/18 18:25 Urine WBC 0-2 /hpf (0-5) 05/01/18 18:25 Ur Epithelial Cells FEW /lpf (FEW) 05/01/18 18:25 Urine Bacteria FEW /hpf (NONE SEEN) 05/01/18 18:25 Urine Opiates Screen NEGATIVE (NEGATIVE) 05/01/18 18:25 Urine Methadone Screen NEGATIVE (NEGATIVE) 05/01/18 18:25 Ur Barbiturates Screen NEGATIVE (NEGATIVE) 05/01/18 18:25 Ur Tricyclics Screen POSITIVE (NEGATIVE) H 05/01/18 18:25 Ur Phencyclidine Scrn NEGATIVE (NEGATIVE) 05/01/18 18:25 Amphetamines Screen NEGATIVE (NEGATIVE) 05/01/18 18:25 U Methamphetamines Scrn NEGATIVE (NEGATIVE) 05/01/18 18:25 U Benzodiazepines Scrn NEGATIVE (NEGATIVE) 05/01/18 18:25 U Cocaine Metab Screen NEGATIVE (NEGATIVE) 05/01/18 18:25 U Cannabinoids Screen NEGATIVE (NEGATIVE) 05/01/18 18:25 - Physical Exam Vitals and I&O: Vital Signs Temp 97 F 05/03/18 05:52 Pulse 57 05/03/18 05:52 Resp 18 05/03/18 05:52 BP 145/85 05/03/18 05:52 Pulse Ox 94 05/03/18 05:52 Intake & Output 05/02/18 05/02/18 05/03/18 06:59 18:59 06:59 Intake Total 1100 Balance 1100 Weight (lbs) 78.018 kg Intake: Oral 1100 Other: # Voids 4 4 # Bowel Movements 0 1 Weight Source Bedscale Active Medications: Current Medications Acetaminophen (Tylenol) 650 mg PO Q4HR PRN PRN Reason: Mild Pain / Temp above 100 Stop: 06/30/18 22:13 Aspirin (Ecotrin) 81 mg PO DAILY [facility] Stop: 07/01/18 08:59 Last Admin: 05/02/18 09:32 Dose: 81 mg Clonazepam (Klonopin) 0.5 mg PO BID [facility]; Protocol Stop: 07/01/18 08:59 Last Admin: 05/02/18 17:27 Dose: 0.5 mg Divalproex Sodium (Depakote Dr) 500 mg PO DAILY [facility]; Protocol Stop: 07/01/18 08:59 Last Admin: 05/02/18 13:53 Dose: Not Given Docusate Sodium (Colace) 250 mg PO DAILY [facility] Stop: 07/01/18 08:59 Last Admin: 05/02/18 09:32 Dose: 250 mg Ezetimibe (Zetia) 10 mg PO HS [facility] Stop: 07/01/18 20:59 Last Admin: 05/02/18 21:12 Dose: 10 mg Ferrous Sulfate (Iron) 325 mg PO DAILY [facility] Stop: 07/01/18 08:59 Last Admin: 05/02/18 09:32 Dose: 325 mg Lorazepam (Ativan) 0.5 mg PO Q4HR PRN; Protocol PRN Reason: Anxiety Stop: 05/31/18 22:13 Last Admin: 05/02/18 01:00 Dose: 0.5 mg Metoprolol Tartrate (Lopressor) 50 mg PO BID [facility] Stop: 07/01/18 08:59 Last Admin: 05/02/18 17:26 Dose: 50 mg Miscellaneous ([place]-3 Acid Ethyl Esters [Lovaza]) 1 gm PO DAILY [facility] Stop: 07/01/18 08:59 Quetiapine Fumarate (Seroquel) 200 mg PO BID [facility]; Protocol Stop: 07/01/18 08:59 Last Admin: 05/02/18 17:26 Dose: 200 mg Quetiapine Fumarate (Seroquel) 300 mg PO HS [facility]; Protocol Stop: 07/01/18 20:59 Last Admin: 05/02/18 21:12 Dose: 300 mg Zolpidem Tartrate (Ambien) 5 mg PO HS PRN PRN Reason: Insomnia Stop: 06/30/18 22:13 Last Admin: 05/01/18 23:29 Dose: 5 mg General: Alert, Oriented x3, No acute distress HEENT: Atraumatic, PERRLA, EOMI Neck: Supple Cardiovascular: Regular rate, Normal S1, Normal S2 Lungs: Clear to auscultation Abdomen: Bowel sounds Extremities: no Clubbing, no Cyanosis Assessment/Plan - Problem List Patient Problems: All Active Problems AGITATION WITH VERBAL THREATS (Acute) - Assessment Assessment: Current Active Problems Problem Status Onset AGITATION WITH VERBAL THREATS Acute psychosis anxiety disorder schizophrenia anemia hyperlipidemia HTN constipation Type 2 DM - Plan Plan: continue current meds admit to [facility] for further evaluation and treatment.
[2018-05-03] MEDS: Ferrous Sulfate 325 MG TAB PO SCH (08:58)
--- NOTE | 2018-05-03 20:56 | Progress Notes ---
DATE: 05/03/2018 SUBJECTIVE: Case was discussed with staff of the patient, reviewed records. The patient continues to have poor insight, easily agitated, irritable, unpredictable, and impulsive with a history of schizophrenia. He continues to have poor insight. He continues to be unable to make safe plan for self-care, have no clue why he is here. He reports he is here because he was told he need to come here to see Dr. Miramontes. He was restarted on the medication. He is on Depakote, clonazepam, and Seroquel 200 mg twice a day and 300 mg at bedtime with no side effects, no sedation, no nausea, and no extrapyramidal symptoms. LABORATORY DATA: Lab work, CBC shows low red cells, low hematocrit, high MCH, and high monocyte. The rest within normal range. Chemistry panel is within normal range with low albumin. Lipid panel within normal range. Urinalysis within normal range. Urine drug screen was positive for tricyclics, the rest is negative. PLAN: No side effects with the medication, no sedation, no nausea, no extrapyramidal symptoms. We will continue to work with the patient in group therapy, milieu therapy, and adjust medications as needed. JOB# [id number]
--- NOTE | 2018-05-04 03:01 | Progress Notes ---
DATE: 05/03/2018 ADDENDUM LABORATORY DATA: Lab work, CBC shows low red cells, low hematocrit, high MCH, and high monocyte. The rest within normal range. Chemistry panel is within normal range with low albumin. Lipid panel within normal range. Urinalysis within normal range. Urine drug screen was positive for tricyclics, the rest is negative. No side effects with the medication, no sedation, no nausea, no extrapyramidal symptoms. We will continue to work with the patient in group therapy, milieu therapy, and adjust medications as needed. JOB# [id number]
--- NOTE | 2018-05-04 06:12 | General Progress Note ---
Subjective - Review of Systems Service Date: 05/04/18 Subjective: Awake, alert, no acute distress. but confused VS T97.9 P72 R20 BP 103/66 Objective - Results Result Diagrams: 05/01/18 18:15 05/01/18 18:15 Recent Labs: Laboratory Last Values WBC 6.6 Th/cmm (4.8-10.8) 05/01/18 18:15 RBC 4.07 Mil/cmm (4.30-5.70) L 05/01/18 18:15 Hgb 12.3 gm/dL (12-16) 05/01/18 18:15 Hct 36.9 % (41.0-60) L 05/01/18 18:15 MCV 90.6 fl (80-99) 05/01/18 18:15 MCH 30.2 pg (26.0-30.0) H 05/01/18 18:15 MCHC Differential 33.3 pg (28.0-36.0) 05/01/18 18:15 RDW 12.7 % (11.5-20.0) 05/01/18 18:15 Plt Count 212 Th/cmm (150-400) 05/01/18 18:15 MPV 7.3 fl 05/01/18 18:15 Neutrophils % 43.9 % (40.0-80.0) 05/01/18 18:15 Lymphocytes % 41.3 % (20.0-50.0) 05/01/18 18:15 Monocytes % 12.4 % (2.0-10.0) H 05/01/18 18:15 Eosinophils % 1.9 % (0.0-5.0) 05/01/18 18:15 Basophils % 0.5 % (0.0-2.0) 05/01/18 18:15 Sodium 139 mEq/L (136-145) 05/01/18 18:15 Potassium 4.1 mEq/L (3.5-5.1) 05/01/18 18:15 Chloride 106 mEq/L (98-107) 05/01/18 18:15 Carbon Dioxide 25.9 mEq/L (21.0-31.0) 05/01/18 18:15 Anion Gap 11.2 (7.0-16.0) 11/16/18 18:15 BUN 22 mg/dL (7-25) 05/01/18 18:15 Creatinine 0.9 mg/dL (0.7-1.3) 05/01/18 18:15 Est GFR ( Amer) > 60.0 ml/min (>90) 05/01/18 18:15 Est GFR (Non-Af Amer) > 60.0 ml/min 05/01/18 18:15 BUN/Creatinine Ratio 24.4 05/01/18 18:15 Glucose 102 mg/dL (70-105) 05/01/18 18:15 Calcium 9.3 mg/dL (8.6-10.3) 05/01/18 18:15 Phosphorus 4.0 mg/dL (2.5-5.0) 05/01/18 18:15 Magnesium 2.5 mg/dL (1.9-2.7) 05/01/18 18:15 Total Bilirubin 0.3 mg/dL (0.3-1.0) 05/01/18 18:15 AST 24 U/L (13-39) 05/01/18 18:15 ALT 20 U/L (7-52) 05/01/18 18:15 Alkaline Phosphatase 63 U/L (34-104) 05/01/18 18:15 Total Protein 7.2 gm/dL (6.0-8.3) 05/01/18 18:15 Albumin 3.9 gm/dL (4.2-5.5) L 05/01/18 18:15 Globulin 3.3 gm/dL 05/01/18 18:15 Albumin/Globulin Ratio 1.2 (1.0-1.8) 05/01/18 18:15 Triglycerides 124 mg/dL (<150) 05/02/18 06:57 Cholesterol 144 mg/dL (<200) 05/02/18 06:57 LDL Cholesterol Direct 85 mg/dL (75-193) 05/02/18 06:57 HDL Cholesterol 49 mg/dL (23-92) 05/02/18 06:57 TSH 2.65 uIU/ml (0.34-5.60) 05/01/18 18:15 Urine Source CLEAN C 05/01/18 18:25 Urine Color YELLOW 05/01/18 18:25 Urine Clarity CLEAR (CLEAR) 05/01/18 18:25 Urine pH 6.0 (4.6 - 8.0) 05/01/18 18:25 Ur Specific [place] 1.010 (1.005-1.030) 05/01/18 18:25 Urine Protein NEGATIVE mg/dL (NEGATIVE) 05/01/18 18:25 Urine Glucose (UA) NEGATIVE mg/dL (NEGATIVE) 05/01/18 18:25 Urine Ketones NEGATIVE mg/dL (NEGATIVE) 05/01/18 18:25 Urine Blood NEGATIVE (NEGATIVE) 05/01/18 18:25 Urine Nitrate NEGATIVE (NEGATIVE) 05/01/18 18:25 Urine Bilirubin NEGATIVE (NEGATIVE) 05/01/18 18:25 Urine Urobilinogen 0.2 E.U./dL (0.2 - 1.0) 05/01/18 18:25 Ur Leukocyte Esterase NEGATIVE (NEGATIVE) 05/01/18 18:25 Urine RBC NONE SEEN /hpf (0-5) 05/01/18 18:25 Urine WBC 0-2 /hpf (0-5) 05/01/18 18:25 Ur Epithelial Cells FEW /lpf (FEW) 05/01/18 18:25 Urine Bacteria FEW /hpf (NONE SEEN) 05/01/18 18:25 Urine Opiates Screen NEGATIVE (NEGATIVE) 05/01/18 18:25 Urine Methadone Screen NEGATIVE (NEGATIVE) 05/01/18 18:25 Ur Barbiturates Screen NEGATIVE (NEGATIVE) 05/01/18 18:25 Ur Tricyclics Screen POSITIVE (NEGATIVE) H 05/01/18 18:25 Ur Phencyclidine Scrn NEGATIVE (NEGATIVE) 05/01/18 18:25 Amphetamines Screen NEGATIVE (NEGATIVE) 05/01/18 18:25 U Methamphetamines Scrn NEGATIVE (NEGATIVE) 05/01/18 18:25 U Benzodiazepines Scrn NEGATIVE (NEGATIVE) 05/01/18 18:25 U Cocaine Metab Screen NEGATIVE (NEGATIVE) 05/01/18 18:25 U Cannabinoids Screen NEGATIVE (NEGATIVE) 05/01/18 18:25 - Physical Exam Vitals and I&O: Vital Signs Temp 97.9 F 05/03/18 20:00 Pulse 72 05/03/18 20:00 Resp 20 05/03/18 20:00 BP 103/66 05/03/18 20:00 Pulse Ox 96 05/03/18 20:00 Intake & Output 05/03/18 05/03/18 05/04/18 06:59 18:59 06:59 Intake Total 900 Balance 900 Intake: Oral 900 Other: # Voids 3 # Bowel Movements 1 Active Medications: Current Medications Acetaminophen (Tylenol) 650 mg PO Q4HR PRN PRN Reason: Mild Pain / Temp above 100 Stop: 06/30/18 22:13 Aspirin (Ecotrin) 81 mg PO DAILY [facility] Stop: 07/01/18 08:59 Last Admin: 05/03/18 08:59 Dose: 81 mg Clonazepam (Klonopin) 0.5 mg PO BID [facility]; Protocol Stop: 07/01/18 08:59 Last Admin: 05/03/18 16:17 Dose: 0.5 mg Divalproex Sodium (Depakote Dr) 500 mg PO DAILY [facility]; Protocol Stop: 07/01/18 08:59 Last Admin: 05/03/18 08:58 Dose: 500 mg Docusate Sodium (Colace) 250 mg PO DAILY [facility] Stop: 07/01/18 08:59 Last Admin: 05/03/18 08:59 Dose: 250 mg Ezetimibe (Zetia) 10 mg PO [facility] Stop: 07/01/18 20:59 Last Admin: 05/03/18 20:15 Dose: 10 mg Ferrous Sulfate (Iron) 325 mg PO DAILY [facility] Stop: 07/01/18 08:59 Last Admin: 05/03/18 08:58 Dose: 325 mg Lorazepam (Ativan) 0.5 mg PO Q4HR PRN; Protocol PRN Reason: Anxiety Stop: 05/31/18 22:13 Last Admin: 05/03/18 20:15 Dose: 0.5 mg Metoprolol Tartrate (Lopressor) 50 mg PO BID [facility] Stop: 07/01/18 08:59 Last Admin: 05/03/18 16:18 Dose: 50 mg Miscellaneous ([place]-3 Acid Ethyl Esters [Lovaza]) 1 gm PO DAILY [facility] Stop: 07/01/18 08:59 Quetiapine Fumarate (Seroquel) 200 mg PO BID [facility]; Protocol Stop: 07/01/18 08:59 Last Admin: 05/03/18 16:18 Dose: 200 mg Quetiapine Fumarate (Seroquel) 300 mg PO HS [facility]; Protocol Stop: 07/01/18 20:59 Last Admin: 05/03/18 20:16 Dose: 300 mg Zolpidem Tartrate (Ambien) 5 mg PO HS PRN PRN Reason: Insomnia Stop: 06/30/18 22:13 Last Admin: 05/01/18 23:29 Dose: 5 mg General: Alert, Oriented x3, No acute distress HEENT: Atraumatic, PERRLA, EOMI Neck: Supple Cardiovascular: Regular rate, Normal S1, Normal S2 Lungs: Clear to auscultation Abdomen: Bowel sounds Extremities: no Clubbing, no Cyanosis Assessment/Plan - Problem List Patient Problems: All Active Problems AGITATION WITH VERBAL THREATS (Acute) - Assessment Assessment: Current Active Problems Problem Status Onset AGITATION WITH VERBAL THREATS Acute psychosis anxiety disorder schizophrenia anemia hyperlipidemia HTN constipation Type 2 DM - Plan Plan: continue current meds admit to [facility] for further evaluation and treatment.
[2018-05-04] MEDS: Ferrous Sulfate 325 MG TAB PO SCH (08:28)
[2018-05-04] MEDS: Fish Oil 1,000 MG SGL PO SCH (09:09)
--- NOTE | 2018-05-05 01:44 | Progress Notes ---
DATE: PSYCHIATRIC PROGRESS NOTE SUBJECTIVE: Chart reviewed and the patient interviewed. Also discussed the patient's condition with the staff and reviewed records and labs. The patient is still anxious and is still easily agitated. The patient also is still in irritable mood. The patient also still has periods of agitation, but seems to be slightly less than before. The patient restarted on Seroquel 200 mg twice a day, Depakote 500 mg daily, and Klonopin 0.5 mg twice a day. No side effects of medications. ASSESSMENT: The patient is still irritable and is still agitated, but slightly calmer than before. TREATMENT PLAN: We will continue to monitor his behavior and his condition. Also, we will get Depakote blood level and we will continue to work on behavioral modification and followup. JOB# [id number]
--- NOTE | 2018-05-05 08:23 | General Progress Note ---
Subjective - Review of Systems Service Date: 05/05/18 Subjective: Awake, alert, no acute distress. but confused VS T97.8 P90 R20 BP 122/77 Objective - Results Result Diagrams: 05/01/18 18:15 05/01/18 18:15 Recent Labs: Laboratory Last Values WBC 6.6 Th/cmm (4.8-10.8) 05/01/18 18:15 RBC 4.07 Mil/cmm (4.30-5.70) L 05/01/18 18:15 Hgb 12.3 gm/dL (12-16) 05/01/18 18:15 Hct 36.9 % (41.0-60) L 05/01/18 18:15 MCV 90.6 fl (80-99) 05/01/18 18:15 MCH 30.2 pg (26.0-30.0) H 05/01/18 18:15 MCHC Differential 33.3 pg (28.0-36.0) 05/01/18 18:15 RDW 12.7 % (11.5-20.0) 05/01/18 18:15 Plt Count 212 Th/cmm (150-400) 05/01/18 18:15 MPV 7.3 fl 05/01/18 18:15 Neutrophils % 43.9 % (40.0-80.0) 05/01/18 18:15 Lymphocytes % 41.3 % (20.0-50.0) 05/01/18 18:15 Monocytes % 12.4 % (2.0-10.0) H 05/01/18 18:15 Eosinophils % 1.9 % (0.0-5.0) 05/01/18 18:15 Basophils % 0.5 % (0.0-2.0) 05/01/18 18:15 Sodium 139 mEq/L (136-145) 05/01/18 18:15 Potassium 4.1 mEq/L (3.5-5.1) 05/01/18 18:15 Chloride 106 mEq/L (98-107) 05/01/18 18:15 Carbon Dioxide 25.9 mEq/L (21.0-31.0) 05/01/18 18:15 Anion Gap 11.2 (7.0-16.0) 11/16/18 18:15 BUN 22 mg/dL (7-25) 05/01/18 18:15 Creatinine 0.9 mg/dL (0.7-1.3) 05/01/18 18:15 Est GFR ( Amer) > 60.0 ml/min (>90) 05/01/18 18:15 Est GFR (Non-Af Amer) > 60.0 ml/min 05/01/18 18:15 BUN/Creatinine Ratio 24.4 05/01/18 18:15 Glucose 102 mg/dL (70-105) 05/01/18 18:15 Calcium 9.3 mg/dL (8.6-10.3) 05/01/18 18:15 Phosphorus 4.0 mg/dL (2.5-5.0) 05/01/18 18:15 Magnesium 2.5 mg/dL (1.9-2.7) 05/01/18 18:15 Total Bilirubin 0.3 mg/dL (0.3-1.0) 05/01/18 18:15 AST 24 U/L (13-39) 05/01/18 18:15 ALT 20 U/L (7-52) 05/01/18 18:15 Alkaline Phosphatase 63 U/L (34-104) 05/01/18 18:15 Total Protein 7.2 gm/dL (6.0-8.3) 05/01/18 18:15 Albumin 3.9 gm/dL (4.2-5.5) L 05/01/18 18:15 Globulin 3.3 gm/dL 05/01/18 18:15 Albumin/Globulin Ratio 1.2 (1.0-1.8) 05/01/18 18:15 Triglycerides 124 mg/dL (<150) 05/02/18 06:57 Cholesterol 144 mg/dL (<200) 05/02/18 06:57 LDL Cholesterol Direct 85 mg/dL (75-193) 05/02/18 06:57 HDL Cholesterol 49 mg/dL (23-92) 05/02/18 06:57 TSH 2.65 uIU/ml (0.34-5.60) 05/01/18 18:15 Urine Source CLEAN C 05/01/18 18:25 Urine Color YELLOW 05/01/18 18:25 Urine Clarity CLEAR (CLEAR) 05/01/18 18:25 Urine pH 6.0 (4.6 - 8.0) 05/01/18 18:25 Ur Specific [place] 1.010 (1.005-1.030) 05/01/18 18:25 Urine Protein NEGATIVE mg/dL (NEGATIVE) 05/01/18 18:25 Urine Glucose (UA) NEGATIVE mg/dL (NEGATIVE) 05/01/18 18:25 Urine Ketones NEGATIVE mg/dL (NEGATIVE) 05/01/18 18:25 Urine Blood NEGATIVE (NEGATIVE) 05/01/18 18:25 Urine Nitrate NEGATIVE (NEGATIVE) 05/01/18 18:25 Urine Bilirubin NEGATIVE (NEGATIVE) 05/01/18 18:25 Urine Urobilinogen 0.2 E.U./dL (0.2 - 1.0) 05/01/18 18:25 Ur Leukocyte Esterase NEGATIVE (NEGATIVE) 05/01/18 18:25 Urine RBC NONE SEEN /hpf (0-5) 05/01/18 18:25 Urine WBC 0-2 /hpf (0-5) 05/01/18 18:25 Ur Epithelial Cells FEW /lpf (FEW) 05/01/18 18:25 Urine Bacteria FEW /hpf (NONE SEEN) 05/01/18 18:25 Urine Opiates Screen NEGATIVE (NEGATIVE) 05/01/18 18:25 Urine Methadone Screen NEGATIVE (NEGATIVE) 05/01/18 18:25 Ur Barbiturates Screen NEGATIVE (NEGATIVE) 05/01/18 18:25 Valproic Acid 25.6 ug/mL (50.0-100.0) L 05/04/18 12:55 Ur Tricyclics Screen POSITIVE (NEGATIVE) H 05/01/18 18:25 Ur Phencyclidine Scrn NEGATIVE (NEGATIVE) 05/01/18 18:25 Amphetamines Screen NEGATIVE (NEGATIVE) 05/01/18 18:25 U Methamphetamines Scrn NEGATIVE (NEGATIVE) 05/01/18 18:25 U Benzodiazepines Scrn NEGATIVE (NEGATIVE) 05/01/18 18:25 U Cocaine Metab Screen NEGATIVE (NEGATIVE) 05/01/18 18:25 U Cannabinoids Screen NEGATIVE (NEGATIVE) 05/01/18 18:25 - Physical Exam Vitals and I&O: Vital Signs Temp 97.8 F 05/05/18 06:42 Pulse 90 05/05/18 06:42 Resp 20 05/05/18 06:42 BP 122/77 11/20/18 06:42 Pulse Ox 97 05/05/18 06:42 Intake & Output 05/04/18 05/05/18 05/05/18 18:59 06:59 18:59 Intake Total 360 Balance 360 Intake: Oral 360 Other: # Voids 1 # Bowel Movements 0 Active Medications: Current Medications Acetaminophen (Tylenol) 650 mg PO Q4HR PRN PRN Reason: Mild Pain / Temp above 100 Stop: 06/30/18 22:13 Aspirin (Ecotrin) 81 mg PO DAILY [facility] Stop: 07/01/18 08:59 Last Admin: 05/04/18 08:29 Dose: 81 mg Clonazepam (Klonopin) 0.5 mg PO BID [facility]; Protocol Stop: 07/01/18 08:59 Last Admin: 05/04/18 17:04 Dose: 0.5 mg Divalproex Sodium (Depakote Dr) 500 mg PO DAILY [facility]; Protocol Stop: 07/04/18 08:59 Docusate Sodium (Colace) 250 mg PO DAILY [facility] Stop: 07/01/18 08:59 Last Admin: 05/04/18 08:29 Dose: 250 mg Ezetimibe (Zetia) 10 mg PO HS [facility] Stop: 07/01/18 20:59 Last Admin: 05/04/18 20:32 Dose: 10 mg Ferrous Sulfate (Iron) 325 mg PO DAILY [facility] Stop: 07/01/18 08:59 Last Admin: 05/04/18 08:28 Dose: 325 mg Fish Oil ([place] 3) 1,000 mg PO DAILY [facility] Stop: 07/03/18 08:59 Last Admin: 05/04/18 09:09 Dose: 1,000 mg Lorazepam (Ativan) 0.5 mg PO Q4HR PRN; Protocol PRN Reason: Anxiety Stop: 05/31/18 22:13 Last Admin: 05/04/18 17:04 Dose: 0.5 mg Metoprolol Tartrate (Lopressor) 50 mg PO BID [facility] Stop: 07/01/18 08:59 Last Admin: 05/04/18 17:03 Dose: 50 mg Quetiapine Fumarate (Seroquel) 200 mg PO BID [facility]; Protocol Stop: 07/01/18 08:59 Last Admin: 05/04/18 17:04 Dose: 200 mg Quetiapine Fumarate (Seroquel) 300 mg PO HS [facility]; Protocol Stop: 07/01/18 20:59 Last Admin: 05/04/18 20:32 Dose: 300 mg Zolpidem Tartrate (Ambien) 5 mg PO HS PRN PRN Reason: Insomnia Stop: 06/30/18 22:13 Last Admin: 05/01/18 23:29 Dose: 5 mg General: Alert, Oriented x3, No acute distress HEENT: Atraumatic, PERRLA, EOMI Neck: Supple Cardiovascular: Regular rate, Normal S1, Normal S2 Lungs: Clear to auscultation Abdomen: Bowel sounds Extremities: no Clubbing, no Cyanosis Assessment/Plan - Problem List Patient Problems: All Active Problems AGITATION WITH VERBAL THREATS (Acute) - Assessment Assessment: Current Active Problems Problem Status Onset AGITATION WITH VERBAL THREATS Acute psychosis anxiety disorder schizophrenia anemia hyperlipidemia HTN constipation Type 2 DM - Plan Plan: continue current meds admit [facility] and treatment.
[2018-05-05] MEDS: Ferrous Sulfate 325 MG TAB PO SCH (08:51)
[2018-05-05] MEDS: Fish Oil 1,000 MG SGL PO SCH (08:51)
--- NOTE | 2018-05-05 22:09 | Progress Notes ---
DATE: SUBJECTIVE: Chart reviewed and the patient interviewed. Also discussed the patient's condition with the staff and reviewed records and labs. The patient continued to be in angry mood and he is still withdrawn. The patient also wants to be left alone. The patient also has difficulty with his mood and is still having severe mood swings. Otherwise, the patient is compliant with taking his medications with no side effects of medications. ASSESSMENT: The patient is still psychotic and agitated. TREATMENT PLAN: We will continue to monitor his behavior and his condition closely. Also, we will continue adjusting psychotropic medications and working on discharge plans. JOB# [id number]
--- NOTE | 2018-05-06 08:25 | General Progress Note ---
Subjective - Review of Systems Service Date: 05/06/18 Subjective: Awake, alert, no acute distress. but confused VS T97.8 P75 R20 BP 125/76 Objective - Results Result Diagrams: 05/01/18 18:15 05/01/18 18:15 Recent Labs: Laboratory Last Values WBC 6.6 Th/cmm (4.8-10.8) 05/01/18 18:15 RBC 4.07 Mil/cmm (4.30-5.70) L 05/01/18 18:15 Hgb 12.3 gm/dL (12-16) 05/01/18 18:15 Hct 36.9 % (41.0-60) L 05/01/18 18:15 MCV 90.6 fl (80-99) 05/01/18 18:15 MCH 30.2 pg (26.0-30.0) H 05/01/18 18:15 MCHC Differential 33.3 pg (28.0-36.0) 05/01/18 18:15 RDW 12.7 % (11.5-20.0) 05/01/18 18:15 Plt Count 212 Th/cmm (150-400) 05/01/18 18:15 MPV 7.3 fl 05/01/18 18:15 Neutrophils % 43.9 % (40.0-80.0) 05/01/18 18:15 Lymphocytes % 41.3 % (20.0-50.0) 05/01/18 18:15 Monocytes % 12.4 % (2.0-10.0) H 05/01/18 18:15 Eosinophils % 1.9 % (0.0-5.0) 05/01/18 18:15 Basophils % 0.5 % (0.0-2.0) 05/01/18 18:15 Sodium 139 mEq/L (136-145) 05/01/18 18:15 Potassium 4.1 mEq/L (3.5-5.1) 05/01/18 18:15 Chloride 106 mEq/L (98-107) 05/01/18 18:15 Carbon Dioxide 25.9 mEq/L (21.0-31.0) 05/01/18 18:15 Anion Gap 11.2 (7.0-16.0) 05/01/18 18:15 BUN 22 mg/dL (7-25) 05/01/18 18:15 Creatinine 0.9 mg/dL (0.7-1.3) 05/01/18 18:15 Est GFR ( Amer) > 60.0 ml/min (>90) 05/01/18 18:15 Est GFR (Non-Af Amer) > 60.0 ml/min 18 18:15 BUN/Creatinine Ratio 24.4 05/01/18 18:15 Glucose 102 mg/dL (70-105) 05/01/18 18:15 Calcium 9.3 mg/dL (8.6-10.3) 05/01/18 18:15 Phosphorus 4.0 mg/dL (2.5-5.0) 05/01/18 18:15 Magnesium 2.5 mg/dL (1.9-2.7) 05/01/18 18:15 Total Bilirubin 0.3 mg/dL (0.3-1.0) 05/01/18 18:15 AST 24 U/L (13-39) 05/01/18 18:15 ALT 20 U/L (7-52) 05/01/18 18:15 Alkaline Phosphatase 63 U/L (34-104) 05/01/18 18:15 Total Protein 7.2 gm/dL (6.0-8.3) 05/01/18 18:15 Albumin 3.9 gm/dL (4.2-5.5) L 05/01/18 18:15 Globulin 3.3 gm/dL 05/01/18 18:15 Albumin/Globulin Ratio 1.2 (1.0-1.8) 05/01/18 18:15 Triglycerides 124 mg/dL (<150) 05/02/18 06:57 Cholesterol 144 mg/dL (<200) 05/02/18 06:57 LDL Cholesterol Direct 85 mg/dL (75-193) 05/02/18 06:57 HDL Cholesterol 49 mg/dL (23-92) 05/02/18 06:57 TSH 2.65 uIU/ml (0.34-5.60) 05/01/18 18:15 Urine Source CLEAN C 05/01/18 18:25 Urine Color YELLOW 05/01/18 18:25 Urine Clarity CLEAR (CLEAR) 11/16/18 18:25 Urine pH 6.0 (4.6 - 8.0) 05/01/18 18:25 Ur Specific [place] 1.010 (1.005-1.030) 05/01/18 18:25 Urine Protein NEGATIVE mg/dL (NEGATIVE) 05/01/18 18:25 Urine Glucose (UA) NEGATIVE mg/dL (NEGATIVE) 05/01/18 18:25 Urine Ketones NEGATIVE mg/dL (NEGATIVE) 05/01/18 18:25 Urine Blood NEGATIVE (NEGATIVE) 05/01/18 18:25 Urine Nitrate NEGATIVE (NEGATIVE) 05/01/18 18:25 Urine Bilirubin NEGATIVE (NEGATIVE) 05/01/18 18:25 Urine Urobilinogen 0.2 E.U./dL (0.2 - 1.0) 05/01/18 18:25 Ur Leukocyte Esterase NEGATIVE (NEGATIVE) 05/01/18 18:25 Urine RBC NONE SEEN /hpf (0-5) 05/01/18 18:25 Urine WBC 0-2 /hpf (0-5) 05/01/18 18:25 Ur Epithelial Cells FEW /lpf (FEW) 05/01/18 18:25 Urine Bacteria FEW /hpf (NONE SEEN) 05/01/18 18:25 Urine Opiates Screen NEGATIVE (NEGATIVE) 05/01/18 18:25 Urine Methadone Screen NEGATIVE (NEGATIVE) 05/01/18 18:25 Ur Barbiturates Screen NEGATIVE (NEGATIVE) 05/01/18 18:25 Valproic Acid 25.6 ug/mL (50.0-100.0) L 05/04/18 12:55 Ur Tricyclics Screen POSITIVE (NEGATIVE) H 05/01/18 18:25 Ur Phencyclidine Scrn NEGATIVE (NEGATIVE) 05/01/18 18:25 Amphetamines Screen NEGATIVE (NEGATIVE) 05/01/18 18:25 U Methamphetamines Scrn NEGATIVE (NEGATIVE) 05/01/18 18:25 U Benzodiazepines Scrn NEGATIVE (NEGATIVE) 05/01/18 18:25 U Cocaine Metab Screen NEGATIVE (NEGATIVE) 05/01/18 18:25 U Cannabinoids Screen NEGATIVE (NEGATIVE) 05/01/18 18:25 - Physical Exam Vitals and I&O: Vital Signs Temp 97.8 F 05/06/18 06:25 Pulse 75 05/06/18 06:25 Resp 20 11/21/18 06:25 BP 125/76 05/06/18 06:25 Pulse Ox 100 05/06/18 06:25 Intake & Output 05/05/18 05/06/18 05/06/18 18:59 06:59 18:59 Intake Total 1200 420 Balance 1200 420 Weight (lbs) 78.018 kg Intake: Oral 1200 420 Other: # Voids 4 2 # Bowel Movements 1 0 Weight Source Bedscale Active Medications: Current Medications Acetaminophen (Tylenol) 650 mg PO Q4HR PRN PRN Reason: Mild Pain / Temp above 100 Stop: 06/30/18 22:13 Aspirin (Ecotrin) 81 mg PO DAILY [facility] Stop: 07/01/18 08:59 Last Admin: 05/05/18 08:51 Dose: 81 mg Clonazepam (Klonopin) 0.5 mg PO BID [facility]; Protocol Stop: 07/01/18 08:59 Last Admin: 05/05/18 16:33 Dose: 0.5 mg Divalproex Sodium (Depakote Dr) 500 mg PO DAILY [facility]; Protocol Stop: 07/04/18 08:59 Last Admin: 05/05/18 08:51 Dose: 500 mg Docusate Sodium (Colace) 250 mg PO DAILY [facility] Stop: 07/01/18 08:59 Last Admin: 05/05/18 08:51 Dose: 250 mg Ezetimibe (Zetia) 10 mg PO HS [facility] Stop: 07/01/18 20:59 Last Admin: 05/05/18 20:20 Dose: 10 mg Ferrous Sulfate (Iron) 325 mg PO DAILY [facility] Stop: 07/01/18 08:59 Last Admin: 05/05/18 08:51 Dose: 325 mg Fish Oil ([place] 3) 1,000 mg PO DAILY [facility] Stop: 07/03/18 08:59 Last Admin: 05/05/18 08:51 Dose: 1,000 mg Lorazepam (Ativan) 0.5 mg PO Q4HR PRN; Protocol PRN Reason: Anxiety Stop: 05/31/18 22:13 Last Admin: 05/05/18 22:08 Dose: 0.5 mg Metoprolol Tartrate (Lopressor) 50 mg PO BID [facility] Stop: 07/01/18 08:59 Last Admin: 05/05/18 16:33 Dose: 50 mg Quetiapine Fumarate (Seroquel) 200 mg PO BID [facility]; Protocol Stop: 07/01/18 08:59 Last Admin: 05/05/18 16:33 Dose: 200 mg Quetiapine Fumarate (Seroquel) 400 mg PO HS [facility]; Protocol Stop: 07/05/18 20:59 Zolpidem Tartrate (Ambien) 5 mg PO HS PRN PRN Reason: Insomnia Stop: 06/30/18 22:13 Last Admin: 05/01/18 23:29 Dose: 5 mg General: Alert, Oriented x3, No acute distress HEENT: Atraumatic, PERRLA, EOMI Neck: Supple Cardiovascular: Regular rate, Normal S1, Normal S2 Lungs: Clear to auscultation Abdomen: Bowel sounds Extremities: no Clubbing, no Cyanosis Assessment/Plan - Problem List Patient Problems: All Active Problems AGITATION WITH VERBAL THREATS (Acute) - Assessment Assessment: Current Active Problems Problem Status Onset AGITATION WITH VERBAL THREATS Acute psychosis anxiety disorder schizophrenia anemia hyperlipidemia HTN constipation Type 2 DM - Plan Plan: continue current meds admit to [facility] for further evaluation and treatment.
[2018-05-06] MEDS: Fish Oil 1,000 MG SGL PO SCH (09:50)
[2018-05-06] MEDS: Ferrous Sulfate 325 MG TAB PO SCH (09:50)
--- NOTE | 2018-05-07 01:12 | Progress Notes ---
DATE: 05/06/2018 SUBJECTIVE: Chart reviewed and the patient interviewed. Also, discussed the patient's condition with the staff and reviewed records and labs. The patient is still in irritable and in angry mood. The patient also still having mood swings. The patient also still has difficulty with his mood and his temper and he is intrusive to others. Otherwise, the patient is compliant with taking his medications with no side effect of medications. ASSESSMENT: The patient is still depressed and is still agitated. TREATMENT PLAN: Continue to monitor his behavior and his condition closely and will continue adjusting psychotropic medications and working on behavioral modification. JOB# [id number]
--- NOTE | 2018-05-07 05:33 | General Progress Note ---
Subjective - Review of Systems Service Date: 05/07/18 Subjective: Awake, alert, no acute distress. but confused VS T97 P72 R19 BP 111/65 Objective - Results Result Diagrams: 05/01/18 18:15 05/01/18 18:15 Recent Labs: Laboratory Last Values WBC 6.6 Th/cmm (4.8-10.8) 05/01/18 18:15 RBC 4.07 Mil/cmm (4.30-5.70) L 05/01/18 18:15 Hgb 12.3 gm/dL (12-16) 05/01/18 18:15 Hct 36.9 % (41.0-60) L 05/01/18 18:15 MCV 90.6 fl (80-99) 05/01/18 18:15 MCH 30.2 pg (26.0-30.0) H 05/01/18 18:15 MCHC Differential 33.3 pg (28.0-36.0) 05/01/18 18:15 RDW 12.7 % (11.5-20.0) 05/01/18 18:15 Plt Count 212 Th/cmm (150-400) 05/01/18 18:15 MPV 7.3 fl 05/01/18 18:15 Neutrophils % 43.9 % (40.0-80.0) 05/01/18 18:15 Lymphocytes % 41.3 % (20.0-50.0) 05/01/18 18:15 Monocytes % 12.4 % (2.0-10.0) H 05/01/18 18:15 Eosinophils % 1.9 % (0.0-5.0) 05/01/18 18:15 Basophils % 0.5 % (0.0-2.0) 05/01/18 18:15 Sodium 139 mEq/L (136-145) 05/01/18 18:15 Potassium 4.1 mEq/L (3.5-5.1) 05/01/18 18:15 Chloride 106 mEq/L (98-107) 05/01/18 18:15 Carbon Dioxide 25.9 mEq/L (21.0-31.0) 05/01/18 18:15 Anion Gap 11.2 (7.0-16.0) 05/01/18 18:15 BUN 22 mg/dL (7-25) 05/01/18 18:15 Creatinine 0.9 mg/dL (0.7-1.3) 05/01/18 18:15 Est GFR ( Amer) > 60.0 ml/min (>90) 05/01/18 18:15 Est GFR (Non-Af Amer) > 60.0 ml/min 18 18:15 BUN/Creatinine Ratio 24.4 05/01/18 18:15 Glucose 102 mg/dL (70-105) 05/01/18 18:15 Calcium 9.3 mg/dL (8.6-10.3) 05/01/18 18:15 Phosphorus 4.0 mg/dL (2.5-5.0) 05/01/18 18:15 Magnesium 2.5 mg/dL (1.9-2.7) 05/01/18 18:15 Total Bilirubin 0.3 mg/dL (0.3-1.0) 05/01/18 18:15 AST 24 U/L (13-39) 05/01/18 18:15 ALT 20 U/L (7-52) 05/01/18 18:15 Alkaline Phosphatase 63 U/L (34-104) 05/01/18 18:15 Total Protein 7.2 gm/dL (6.0-8.3) 05/01/18 18:15 Albumin 3.9 gm/dL (4.2-5.5) L 05/01/18 18:15 Globulin 3.3 gm/dL 05/01/18 18:15 Albumin/Globulin Ratio 1.2 (1.0-1.8) 05/01/18 18:15 Triglycerides 124 mg/dL (<150) 05/02/18 06:57 Cholesterol 144 mg/dL (<200) 05/02/18 06:57 LDL Cholesterol Direct 85 mg/dL (75-193) 05/02/18 06:57 HDL Cholesterol 49 mg/dL (23-92) 05/02/18 06:57 TSH 2.65 uIU/ml (0.34-5.60) 05/01/18 18:15 Urine Source CLEAN C 05/01/18 18:25 Urine Color YELLOW 05/01/18 18:25 Urine Clarity CLEAR (CLEAR) 05/01/18 18:25 Urine pH 6.0 (4.6 - 8.0) 05/01/18 18:25 Ur Specific [place] 1.010 (1.005-1.030) 05/01/18 18:25 Urine Protein NEGATIVE mg/dL (NEGATIVE) 05/01/18 18:25 Urine Glucose (UA) NEGATIVE mg/dL (NEGATIVE) 05/01/18 18:25 Urine Ketones NEGATIVE mg/dL (NEGATIVE) 05/01/18 18:25 Urine Blood NEGATIVE (NEGATIVE) 05/01/18 18:25 Urine Nitrate NEGATIVE (NEGATIVE) 05/01/18 18:25 Urine Bilirubin NEGATIVE (NEGATIVE) 05/01/18 18:25 Urine Urobilinogen 0.2 E.U./dL (0.2 - 1.0) 05/01/18 18:25 Ur Leukocyte Esterase NEGATIVE (NEGATIVE) 05/01/18 18:25 Urine RBC NONE SEEN /hpf (0-5) 05/01/18 18:25 Urine WBC 0-2 /hpf (0-5) 05/01/18 18:25 Ur Epithelial Cells FEW /lpf (FEW) 05/01/18 18:25 Urine Bacteria FEW /hpf (NONE SEEN) 05/01/18 18:25 Urine Opiates Screen NEGATIVE (NEGATIVE) 05/01/18 18:25 Urine Methadone Screen NEGATIVE (NEGATIVE) 05/01/18 18:25 Ur Barbiturates Screen NEGATIVE (NEGATIVE) 05/01/18 18:25 Valproic Acid 25.6 ug/mL (50.0-100.0) L 05/04/18 12:55 Ur Tricyclics Screen POSITIVE (NEGATIVE) H 05/01/18 18:25 Ur Phencyclidine Scrn NEGATIVE (NEGATIVE) 05/01/18 18:25 Amphetamines Screen NEGATIVE (NEGATIVE) 05/01/18 18:25 U Methamphetamines Scrn NEGATIVE (NEGATIVE) 05/01/18 18:25 U Benzodiazepines Scrn NEGATIVE (NEGATIVE) 05/01/18 18:25 U Cocaine Metab Screen NEGATIVE (NEGATIVE) 05/01/18 18:25 U Cannabinoids Screen NEGATIVE (NEGATIVE) 05/01/18 18:25 - Physical Exam Vitals and I&O: Vital Signs Temp 97 F 05/06/18 20:00 Pulse 72 05/06/18 20:00 Resp 19 05/06/18 20:00 BP 111/65 05/06/18 20:00 Pulse Ox 98 05/06/18 20:00 Intake & Output 05/06/18 05/06/18 05/07/18 06:59 18:59 06:59 Intake Total 420 300 Balance 420 300 Weight (lbs) 78.018 kg Intake: Oral 420 300 Other: # Voids 2 2 # Bowel Movements 0 Weight Source Bedscale Active Medications: Current Medications Acetaminophen (Tylenol) 650 mg PO Q4HR PRN PRN Reason: Mild Pain / Temp above 100 Stop: 06/30/18 22:13 Aspirin (Ecotrin) 81 mg PO DAILY [facility] Stop: 07/01/18 08:59 Last Admin: 05/06/18 09:50 Dose: 81 mg Clonazepam (Klonopin) 0.5 mg PO BID [facility]; Protocol Stop: 07/01/18 08:59 Last Admin: 05/06/18 16:53 Dose: 0.5 mg Divalproex Sodium (Depakote Dr) 500 mg PO DAILY [facility]; Protocol Stop: 07/04/18 08:59 Last Admin: 05/06/18 09:50 Dose: 500 mg Docusate Sodium (Colace) 250 mg PO DAILY [facility] Stop: 07/01/18 08:59 Last Admin: 05/06/18 09:50 Dose: 250 mg Ezetimibe (Zetia) 10 mg PO HS [facility] Stop: 07/01/18 20:59 Last Admin: 05/06/18 21:09 Dose: 10 mg Ferrous Sulfate (Iron) 325 mg PO DAILY [facility] Stop: 07/01/18 08:59 Last Admin: 05/06/18 09:50 Dose: 325 mg Fish Oil ([place] 3) 1,000 mg PO DAILY [facility] Stop: 07/03/18 08:59 Last Admin: 05/06/18 09:50 Dose: 1,000 mg Lorazepam (Ativan) 0.5 mg PO Q4HR PRN; Protocol PRN Reason: Anxiety Stop: 05/31/18 22:13 Last Admin: 05/05/18 22:08 Dose: 0.5 mg Metoprolol Tartrate (Lopressor) 50 mg PO BID [facility] Stop: 07/01/18 08:59 Last Admin: 05/06/18 16:53 Dose: 50 mg Quetiapine Fumarate (Seroquel) 200 mg PO BID [facility]; Protocol Stop: 07/01/18 08:59 Last Admin: 05/06/18 16:53 Dose: 200 mg Quetiapine Fumarate (Seroquel) 400 mg PO HS [facility]; Protocol Stop: 07/05/18 20:59 Last Admin: 05/06/18 21:09 Dose: 400 mg Zolpidem Tartrate (Ambien) 5 mg PO HS PRN PRN Reason: Insomnia Stop: 06/30/18 22:13 Last Admin: 05/06/18 21:09 Dose: 5 mg General: Alert, Oriented x3, No acute distress HEENT: Atraumatic, PERRLA, EOMI Neck: Supple Cardiovascular: Regular rate, Normal S1, Normal S2 Lungs: Clear to auscultation Abdomen: Bowel sounds Extremities: no Clubbing, no Cyanosis Assessment/Plan - Problem List Patient Problems: All Active Problems AGITATION WITH VERBAL THREATS (Acute) - Assessment Assessment: Current Active Problems Problem Status Onset AGITATION WITH VERBAL THREATS Acute psychosis anxiety disorder schizophrenia anemia hyperlipidemia HTN constipation Type 2 DM - Plan Plan: continue current meds admit to [facility] for further evaluation and treatment. Nutritional Asmnt/Malnutr-PDOC - Dietary Evaluation Malnutrition Findings (Please click <Entered> for more info): Nutritional Asmnt/Malnutrition Start: 05/06/18 14: 09 Text: Status: Complete Freq: Protocol: Document 05/06/18 14:09 LCHENG (Rec: 05/06/18 14:26 LCHENG [id number]) Nutritional Asmnt/Malnutrition Patient General Information Nutritional Screening Moderate Risk Diagnosis Psychosis Pertinent Medical Hx/Surgical Hx HTN, DM, schizophrenia, bipolar Subjective Information Pt not seen in room at time of visit. Per nurse, pt is confused and forgetful. Pt tolerated current diet, PO intake 100% per EMR. Current Diet Order/ Nutrition Support CCHO-60gm Pertinent Medications colace, iron, omega 3, seroquel Pertinent Labs 05/01 glucose 102, alb 3.9 Nutritional Hx/Data Height 1.83 m Height (Calculated Centimeters) 182.9 Current Weight (lbs) 78.018 kg Weight (Calculated Kilograms) 78.0 Weight (Calculated Grams) 42476.9 [place] Body Weight 178 Body Mass Index (BMI) 23.3 Weight Status Approriate GI Symptoms GI Symptoms None Last BM 05/05 Difficult in: None Skin Integrity/Comment: intact Current %PO Good (75-100%) Estimated Nutritional Goals BEE in Kcals: Using Current wt Calories/Kcals/Kg 25-30 Kcals Calculated 4976-6209 Protein: Using Current wt Protein g/k Protein Calculated 78 Fluid: ml 1950-2340ml (1ml/kcal) Nutritional Problem No current Nutrition Prob Problem N/A Intervention/Recommendation Comments 1. [facility] diet as ordered considering hx of DM. 2. Monitor PO intake, wt, labs and skin integrity 3. F/U as low risk in 7 days, 05/13 Expected Outcomes/Goals Expected Outcomes/Goals 1. PO intake continue to meet at least 75% of nutritional needs. 2. Wt stability, skin to remain intact, labs to approach WNL.
[2018-05-07] MEDS: Ferrous Sulfate 325 MG TAB PO SCH (09:16)
[2018-05-07] MEDS: Fish Oil 1,000 MG SGL PO SCH (09:16)
--- NOTE | 2018-05-07 20:21 | Progress Notes ---
DATE: 05/07/2018 PSYCHIATRIC PROGRESS NOTE SUBJECTIVE: Chart reviewed and the patient interviewed. Also discussed the patient's condition with the staff and reviewed records and labs. The patient is slightly calmer. The patient is a screaming less and he is easier to redirect. The patient also is cooperative with staff and decreased behavioral problems. He still needs redirections. Otherwise, the patient denies any side effects of medications. ASSESSMENT: The patient is still psychotic and can be having poor impulse control. TREATMENT PLAN: Continue to monitoring his behavior closely and continue adjusting psychotropic medications and work on behavioral modification. JOB# [id number]
--- NOTE | 2018-05-08 05:09 | General Progress Note ---
Subjective - Review of Systems Service Date: 05/08/18 Subjective: Awake, alert, no acute distress. but confused VS T97 P69 R20 BP 150/62 Objective - Results Result Diagrams: 05/01/18 18:15 05/01/18 18:15 Recent Labs: Laboratory Last Values WBC 6.6 Th/cmm (4.8-10.8) 05/01/18 18:15 RBC 4.07 Mil/cmm (4.30-5.70) L 05/01/18 18:15 Hgb 12.3 gm/dL (12-16) 05/01/18 18:15 Hct 36.9 % (41.0-60) L 05/01/18 18:15 MCV 90.6 fl (80-99) 05/01/18 18:15 MCH 30.2 pg (26.0-30.0) H 05/01/18 18:15 MCHC Differential 33.3 pg (28.0-36.0) 05/01/18 18:15 RDW 12.7 % (11.5-20.0) 05/01/18 18:15 Plt Count 212 Th/cmm (150-400) 05/01/18 18:15 MPV 7.3 fl 05/01/18 18:15 Neutrophils % 43.9 % (40.0-80.0) 05/01/18 18:15 Lymphocytes % 41.3 % (20.0-50.0) 05/01/18 18:15 Monocytes % 12.4 % (2.0-10.0) H 05/01/18 18:15 Eosinophils % 1.9 % (0.0-5.0) 05/01/18 18:15 Basophils % 0.5 % (0.0-2.0) 05/01/18 18:15 Sodium 139 mEq/L (136-145) 05/01/18 18:15 Potassium 4.1 mEq/L (3.5-5.1) 05/01/18 18:15 Chloride 106 mEq/L (98-107) 05/01/18 18:15 Carbon Dioxide 25.9 mEq/L (21.0-31.0) 05/01/18 18:15 Anion Gap 11.2 (7.0-16.0) 05/01/18 18:15 BUN 22 mg/dL (7-25) 05/01/18 18:15 Creatinine 0.9 mg/dL (0.7-1.3) 05/01/18 18:15 Est GFR ( Amer) > 60.0 ml/min (>90) 05/01/18 18:15 Est GFR (Non-Af Amer) > 60.0 ml/min 18 18:15 BUN/Creatinine Ratio 24.4 05/01/18 18:15 Glucose 102 mg/dL (70-105) 05/01/18 18:15 Calcium 9.3 mg/dL (8.6-10.3) 05/01/18 18:15 Phosphorus 4.0 mg/dL (2.5-5.0) 05/01/18 18:15 Magnesium 2.5 mg/dL (1.9-2.7) 05/01/18 18:15 Total Bilirubin 0.3 mg/dL (0.3-1.0) 05/01/18 18:15 AST 24 U/L (13-39) 05/01/18 18:15 ALT 20 U/L (7-52) 05/01/18 18:15 Alkaline Phosphatase 63 U/L (34-104) 05/01/18 18:15 Total Protein 7.2 gm/dL (6.0-8.3) 05/01/18 18:15 Albumin 3.9 gm/dL (4.2-5.5) L 05/01/18 18:15 Globulin 3.3 gm/dL 05/01/18 18:15 Albumin/Globulin Ratio 1.2 (1.0-1.8) 05/01/18 18:15 Triglycerides 124 mg/dL (<150) 05/02/18 06:57 Cholesterol 144 mg/dL (<200) 05/02/18 06:57 LDL Cholesterol Direct 85 mg/dL (75-193) 05/02/18 06:57 HDL Cholesterol 49 mg/dL (23-92) 05/02/18 06:57 TSH 2.65 uIU/ml (0.34-5.60) 05/01/18 18:15 Urine Source CLEAN C 05/01/18 18:25 Urine Color YELLOW 05/01/18 18:25 Urine Clarity CLEAR (CLEAR) 05/01/18 18:25 Urine pH 6.0 (4.6 - 8.0) 05/01/18 18:25 Ur Specific [place] 1.010 (1.005-1.030) 05/01/18 18:25 Urine Protein NEGATIVE mg/dL (NEGATIVE) 05/01/18 18:25 Urine Glucose (UA) NEGATIVE mg/dL (NEGATIVE) 05/01/18 18:25 Urine Ketones NEGATIVE mg/dL (NEGATIVE) 05/01/18 18:25 Urine Blood NEGATIVE (NEGATIVE) 05/01/18 18:25 Urine Nitrate NEGATIVE (NEGATIVE) 05/01/18 18:25 Urine Bilirubin NEGATIVE (NEGATIVE) 05/01/18 18:25 Urine Urobilinogen 0.2 E.U./dL (0.2 - 1.0) 05/01/18 18:25 Ur Leukocyte Esterase NEGATIVE (NEGATIVE) 05/01/18 18:25 Urine RBC NONE SEEN /hpf (0-5) 05/01/18 18:25 Urine WBC 0-2 /hpf (0-5) 05/01/18 18:25 Ur Epithelial Cells FEW /lpf (FEW) 05/01/18 18:25 Urine Bacteria FEW /hpf (NONE SEEN) 05/01/18 18:25 Urine Opiates Screen NEGATIVE (NEGATIVE) 05/01/18 18:25 Urine Methadone Screen NEGATIVE (NEGATIVE) 05/01/18 18:25 Ur Barbiturates Screen NEGATIVE (NEGATIVE) 05/01/18 18:25 Valproic Acid 25.6 ug/mL (50.0-100.0) L 05/04/18 12:55 Ur Tricyclics Screen POSITIVE (NEGATIVE) H 05/01/18 18:25 Ur Phencyclidine Scrn NEGATIVE (NEGATIVE) 05/01/18 18:25 Amphetamines Screen NEGATIVE (NEGATIVE) 05/01/18 18:25 U Methamphetamines Scrn NEGATIVE (NEGATIVE) 05/01/18 18:25 U Benzodiazepines Scrn NEGATIVE (NEGATIVE) 05/01/18 18:25 U Cocaine Metab Screen NEGATIVE (NEGATIVE) 05/01/18 18:25 U Cannabinoids Screen NEGATIVE (NEGATIVE) 05/01/18 18:25 - Physical Exam Vitals and I&O: Vital Signs Temp 97 F 05/07/18 20:00 Pulse 69 05/07/18 20:00 Resp 20 05/07/18 20:00 BP 150/62 05/07/18 20:00 Pulse Ox 97 05/07/18 20:00 Intake & Output 05/07/18 05/07/18 05/08/18 06:59 18:59 06:59 Intake Total 900 Balance 900 Intake: Oral 900 Other: # Voids 3 # Bowel Movements 1 Active Medications: Current Medications Acetaminophen (Tylenol) 650 mg PO Q4HR PRN PRN Reason: Mild Pain / Temp above 100 Stop: 06/30/18 22:13 Aspirin (Ecotrin) 81 mg PO DAILY [facility] Stop: 07/01/18 08:59 Last Admin: 05/07/18 09:16 Dose: 81 mg Clonazepam (Klonopin) 0.5 mg PO BID [facility]; Protocol Stop: 07/01/18 08:59 Last Admin: 05/07/18 17:44 Dose: 0.5 mg Divalproex Sodium (Depakote Dr) 500 mg PO DAILY [facility]; Protocol Stop: 07/04/18 08:59 Last Admin: 05/07/18 09:16 Dose: 500 mg Docusate Sodium (Colace) 250 mg PO DAILY [facility] Stop: 07/01/18 08:59 Last Admin: 05/07/18 09:16 Dose: 250 mg Ezetimibe (Zetia) 10 mg PO HS [facility] Stop: 07/01/18 20:59 Last Admin: 05/07/18 21:00 Dose: 10 mg Ferrous Sulfate (Iron) 325 mg PO DAILY [facility] Stop: 07/01/18 08:59 Last Admin: 05/07/18 09:16 Dose: 325 mg Fish Oil ([place] 3) 1,000 mg PO DAILY [facility] Stop: 07/03/18 08:59 Last Admin: 05/07/18 09:16 Dose: 1,000 mg Lorazepam (Ativan) 0.5 mg PO Q4HR PRN; Protocol PRN Reason: Anxiety Stop: 05/31/18 22:13 Last Admin: 05/05/18 22:08 Dose: 0.5 mg Metoprolol Tartrate (Lopressor) 50 mg PO BID [facility] Stop: 07/01/18 08:59 Last Admin: 05/07/18 17:48 Dose: 50 mg Quetiapine Fumarate (Seroquel) 200 mg PO BID [facility]; Protocol Stop: 07/01/18 08:59 Last Admin: 05/07/18 17:44 Dose: 200 mg Quetiapine Fumarate (Seroquel) 400 mg PO HS [facility]; Protocol Stop: 07/05/18 20:59 Last Admin: 05/07/18 21:00 Dose: 400 mg Zolpidem Tartrate (Ambien) 5 mg PO HS PRN PRN Reason: Insomnia Stop: 06/30/18 22:13 Last Admin: 05/07/18 21:01 Dose: 5 mg General: Alert, Oriented x3, No acute distress HEENT: Atraumatic, PERRLA, EOMI Neck: Supple Cardiovascular: Regular rate, Normal S1, Normal S2 Lungs: Clear to auscultation Abdomen: Bowel sounds Extremities: no Clubbing, no Cyanosis Assessment/Plan - Problem List Patient Problems: All Active Problems AGITATION WITH VERBAL THREATS (Acute) - Assessment Assessment: Current Active Problems Problem Status Onset AGITATION WITH VERBAL THREATS Acute psychosis anxiety disorder schizophrenia anemia hyperlipidemia HTN slightly elevated constipation Type 2 DM - Plan Plan: continue current meds admit to [facility] for further evaluation and treatment. will add clonidine PO Nutritional Asmnt/Malnutr-PDOC - Dietary Evaluation Malnutrition Findings (Please click <Entered> for more info): Nutritional Asmnt/Malnutrition Start: 05/06/18 14: 09 Text: Status: Complete Freq: Protocol: Document 05/06/18 14:09 LCHENG (Rec: 05/06/18 14:26 LCHENG [id number]) Nutritional Asmnt/Malnutrition Patient General Information Nutritional Screening Moderate Risk Diagnosis Psychosis Pertinent Medical Hx/Surgical Hx HTN, DM, schizophrenia, bipolar Subjective Information Pt not seen in room at time of visit. Per nurse, pt is confused and forgetful. Pt tolerated current diet, PO intake 100% per EMR. Current Diet [facility]/ [facility] Pertinent Medications colace, iron, omega 3, seroquel Pertinent Labs 05/01 glucose 102, alb 3.9 Nutritional Hx/Data Height 1.83 m Height (Calculated Centimeters) 182.9 Current Weight (lbs) 78.018 kg Weight (Calculated Kilograms) 78.0 Weight (Calculated Grams) 33002.9 [place] Body Weight 178 Body Mass Index (BMI) 23.3 Weight Status Approriate GI Symptoms GI Symptoms None Last BM 05/05 Difficult in: None Skin Integrity/Comment: intact Current %PO Good (75-100%) Estimated Nutritional Goals BEE in Kcals: Using Current wt Calories/Kcals/Kg 25-30 Kcals Calculated 7255-5399 Protein: Using Current wt Protein g/k Protein Calculated 78 Fluid: ml 1950-2340ml (1ml/kcal) Nutritional Problem No current Nutrition Prob Problem N/A Intervention/Recommendation Comments 1. Continue with [facility] 60gm diet as ordered considering hx of DM. 2. Monitor PO intake, wt, labs and skin integrity 3. F/U as low risk in 7 days, 05/13 Expected Outcomes/Goals Expected Outcomes/Goals 1. PO intake continue to meet at least 75% of nutritional needs. 2. Wt stability, skin to remain intact, labs to approach WNL.
[2018-05-08] MEDS: Ferrous Sulfate 325 MG TAB PO SCH (09:22)
[2018-05-08] MEDS: Fish Oil 1,000 MG SGL PO SCH (09:22)
--- NOTE | 2018-05-08 20:31 | Discharge Summary ---
DATE OF DISCHARGE: 05/06/2018 DATE OF DISCHARGE: 05/08/2018. AGE: 62. SEX: Male. PHYSICIAN: Dr. Crawley. FINAL DIAGNOSES: PRIMARY DIAGNOSES: Schizoaffective disorder, bipolar type, with psychotic features. MEDICAL DIAGNOSES: 1. Hypertension. 2. Hyperlipidemia. REASON FOR HOSPITALIZATION: The patient was admitted to the hospital from [facility] because the patient was extremely agitated and aggressive and was having difficulty following directions. HOSPITAL COURSE: The patient continued to be in irritable and angry mood. The patient also was depressed. He also was suspicious and was paranoid. The patient was given Depakote and the dose adjusted to 500 mg everyday. The patient also was given Seroquel and the dose adjusted to 200 mg b.i.d. and 400 mg at bedtime. Gradually, the patient's affect was brighter. The patient was less irritable and less agitated. Also, it was easier to redirect him. The patient was discharged back to [place]. Physical examination of the patient was monitored closely by Dr. Winters and the patient had no major medical issues while in the hospital. AFTER DISCHARGE PLANS: The patient discharged from the hospital, returned to [place] with plan to follow him up there. EXPECTED OUTCOME AFTER DISCHARGE: Fair if the patient continues with his treatment and with outpatient treatment plans. JOB# [id number]
[2018-05-09] MEDS: Fish Oil 1,000 MG SGL PO SCH (09:03)
[2018-05-09] MEDS: Ferrous Sulfate 325 MG TAB PO SCH (09:04)
[2018-05-10] MEDS: Ferrous Sulfate 325 MG TAB PO SCH (08:23)
[2018-05-10] MEDS: Fish Oil 1,000 MG SGL PO SCH (08:23)
--- NOTE | 2018-05-11 05:32 | Progress Notes ---
DATE: 05/10/2018 SUBJECTIVE: Chart reviewed and the patient interviewed and discussed the patient's condition with the staff and reviewed records and labs. The patient is supposed to be discharged today to [facility] and for the last 3 days I have been discharging the patient, yet the delay of the patient to be discharged is coming for different excuses and today, I spoke to the correctional case manager who is available today and telling me that they cannot discharge the patient because they need to wait for public office to open because the patient is conserved and public office is closed. I informed her that the patient came from [facility] and they are willing to take him back. Yet she is saying that they cannot discharge the patient till they get approval from public office, which first time I heard about something like this. I notified through text messages the CNO and waiting to hear from her about discharging the patient. JOB# [id number]
== END 2018-05-10 16:20 | DRG 885 ==
LOC: ER 17:40 → GERO 18:42
PROVIDERS: ADMIT Psychiatry & Neurology Psychiatry; ATTEND Psychiatry & Neurology Psychiatry
DX: F25.0 Schizoaffective disorder, bipolar type (principal); I10 Essential (primary) hypertension; E11.9 Type 2 diabetes mellitus without complications; F41.9 Anxiety disorder, unspecified; E78.5 Hyperlipidemia, unspecified; F29 Unspecified psychosis not due to a substance or known physiological condition; D64.9 Anemia, unspecified; K59.00 Constipation, unspecified; Z79.82 Long term (current) use of aspirin
CPT/HCPCS: 36415-UA; 80053-TC; 80061-TC; 80164-TC; 80307; 81001-TC; 83036-90; 83735-TC; 84100-TC; 84443-TC; 85025-TC; Z7610

== ENCOUNTER 2018-09-17 19:43 | Inpatient (IN) | payer MEDICARE, MEDICAID ==
--- NOTE | 2018-09-17 20:11 | ED Physician Chart ---
ED Chief Complaint/HPI - Patient Information Date Seen:: 09/17/18 Time Seen:: 20:05 Chief Complaint:: aggressive behavior History of Present Illness:: He was sent here for admission to [facility] for aggressive behavior at his extended care facility. Allergies:: Allergies Allergy/AdvReac Type Severity Reaction Status Date / Time No Known Allergies Allergy Verified 05/14/17 16:19 Vitals:: Vital Signs - 8 hr 09/17/18 19:45 Temp 97.2 F HR 94 RR 18 BP 108/87 O2 Sat % 99 Historian:: Patient Review:: Nurse's Note Reviewed ED Review of Systems - Review of Systems General/Constitutional: No fever, No chills, No weight loss, No weakness, No diaphoresis, No edema, No loss of appetite Skin: No skin lesions, No rash, No bruising Head: No headache, No light-headedness Eyes: No loss of vision, No pain, No diplopia ENT: No earache, No nasal drainage, No sore throat, No tinnitus Neck: No neck pain, No swelling, No thyromegaly, No stiffness, No mass noted Cardio Vascular: No chest pain, No palpitations, No PND, No orthopnea, No edema Pulmonary: No SOB, No cough, No sputum, No wheezing GI: No nausea, No vomiting, No diarrhea, No pain, No melena, No hematochezia, No constipation, No hematemesis G/U: No dysuria, No frequency, No hematuria Musculoskeletal: No bone or joint pain, No back pain, No muscle pain Endocrine: No polyuria, No polydipsia Psychiatric: Prior psych history, No depression, No anxiety, No suicidal ideation Hematopoietic: No bruising, No lymphadenopathy Allergic/Immuno: No urticaria, No angioedema Neurological: No syncope, No focal symptoms, No weakness, No paresthesia, No headache, No seizure, No dizziness, No confusion, No vertigo ED Past Medical History - Past Medical History Past Medical History: DM, Arthritis, Other (ischemic cardiomyopathy; sick sinus syndrome; bipolar disorder; insomnia; glaucoma; major depression; schizoaffective disorder; anemia; atherosclerosis) Family History: Other (unable to obtain) Social History: Smoker, Care Facility Surgical History: None Psychiatricy History: Depression, Bipolar, Other (schizoaffective disorder) Family Medical History - Family Member Mother History Unknown: Yes Hx Family Cancer: No Hx Family Coronary Artery Disease: No Hx Family Congestive Heart Failure: No Hx Family Stroke: No Hx Family Diabetes: No Hx Family AIDS: No Hx Family COPD: Yes ED Physical Exam - Physical Examination General/Constitutional: Well-developed, well-nourished, Alert, No distress Head: Atraumatic Eyes: Lids, conjuctiva normal, PERRL Skin: Nl inspection ENMT: External ears, nose nl, Nasal exam nl Other ENMT comments:: poor dental hygiene Neck: No nuchal rigidity Respiratory: Nl effort/Exclusion, Clear to Auscultation Cardio Vascular: RRR, No murmur, gallop, rubs GI: No tenderness/rebounding/guarding, No organomegaly, No hernia : No CVA tenderness Extremities: Normal digits & nails Neuro/Psych: No focal deficits ED Labs/Radiology/EKG Results - EKG Interpretations Rate & Rhythm: normal sinus rhythm with a rate of 74 [place]: normal axis Comments:: T wave changes in 1 and aVL ED Septic Shock - . Is Septic Shock (SBP<90, OR Lactate>4 mmol\L) present?: No - <6hrs of presentation: Vital Signs: Vital Signs - 8 hr /10/02 19:45 Temp 97.2 F HR 94 RR 18 BP 108/87 O2 Sat % 99 ED Reassessment (Disposition) - Reassessment Reassessment Condition:: Unchanged - Diagnosis Diagnosis:: Aggressive behavior; schizoaffective disorder; depression - Patient Disposition Admitted to:: [facility] Admitting Medical Physician:: Sincere Nair Admitting Psych Physician:: Fish Crawley Condition at Disposition:: Stable
[2018-09-17 20:35] LABS: % BASOPHILS 0.1 % (0.0-2.0); % EOSINOPHILS 0.7 % (0.0-5.0); % MONOCYTES 10.3 % (2.0-10.0); % NEUTROPHILS 49.9 % (40.0-80.0); HEMOGLOBIN 11.7 gm/dL (12-16); LYMPHOCYTE ABSOLUTE 1.9 Th/cmm (1.5-3.0); MEAN CELL VOLUME 90.5 fl (80-99); MEAN CORPUSCULAR HEMOGLOBIN 30.3 pg (27.0-31.0); MEAN CORPUSCULAR HGB CONC 33.5 pg (28.0-36.0); MEAN PLATELET VOLUME 7.6 fl; MONOCYTE ABSOLUTE 0.5 Th/cmm (0.3-1.0); NEUTROPHILE ABSOLUTE 2.4 Th/cmm (1.8-8.0); PLATELET COUNT 189 Th/cmm (150-400); RED BLOOD COUNT 3.86 Mil/cmm (3.80-5.80); RED CELL DISTRIBUTION WIDTH 12.2 % (11.5-20.0); WHITE BLOOD COUNT 4.8 Th/cmm (4.8-10.8)
[2018-09-17 20:59] LABS: URINE SOURCE CLEAN C
[2018-09-17 21:00] LABS: ALB/GLOB RATIO 1.2 (1.0-1.8); ALBUMIN 3.9 gm/dL (4.2-5.5); ALKALINE PHOSPHATASE 54 U/L (34-104); ANION GAP 10.7 (7.0-16.0); BILIRUBIN,TOTAL 0.2 mg/dL (0.3-1.0); BUN - UREA NITROGEN 21 mg/dL (7-25); CALCIUM SERUM 9.2 mg/dL (8.6-10.3); CARBON DIOXIDE 27.3 mEq/L (21.0-31.0); CHLORIDE 106 mEq/L (98-107); CHOLESTEROL 180 mg/dL (<200); CREATININE - SERUM 1.1 mg/dL (0.7-1.3); GFR AFRICAN-AMERICAN > 60.0 ml/min (>90); GFR NON AFRICAN-AMERICAN > 60.0 ml/min; GLUCOSE 109 mg/dL (70-105); HDL -HIGH DENSITY LIPOPROTEIN 64 mg/dL (23-92); SALICYLATES (ASPIRIN) < 25.0 mg/L (30.0-100.0); SGOT 24 U/L (13-39); SGPT/ALT 18 U/L (7-52); SODIUM SERUM 140 mEq/L (136-145); TOTAL PROTEIN,SERUM 7.1 gm/dL (6.0-8.3); TRIGLYCERIDES 125 mg/dL (<150)
[2018-09-17 21:06] LABS: ACETAMINOPHEN < 10.0 ug/mL (10.0-30.0)
[2018-09-17 21:10] LABS: URINE BILIRUBIN NEGATIVE (NEGATIVE); URINE BLOOD NEGATIVE (NEGATIVE); URINE GLUCOSE (UA) NEGATIVE (NEGATIVE); URINE KETONE NEGATIVE (NEGATIVE); URINE LEUKOCYTE ESTERASE NEGATIVE (NEGATIVE); URINE NITRATE NEGATIVE (NEGATIVE); URINE PROTEIN NEGATIVE (NEGATIVE); URINE UROBILINOGEN 0.2 E.U./dL (0.2 - 1.0)
[2018-09-17 21:48] LABS: URINE CLARITY CLEAR (CLEAR); URINE COLOR STRAW; URINE MICROSCOPIC INDICATED? NO
[2018-09-17 21:57] LABS: AMPHETAMINE URINE NEGATIVE (NEGATIVE); BARBITURATES URINE NEGATIVE (NEGATIVE); COCAINE METABOLITE QUAL URINE NEGATIVE (NEGATIVE); METHAMPHETAMINES QUAL URINE NEGATIVE (NEGATIVE); PHENCYCLIDINE (PCP) URINE NEGATIVE (NEGATIVE)
[2018-09-17 21:58] LABS: BENZODIAZEPINES QUAL URINE NEGATIVE (NEGATIVE); CANNABINOID THC NEGATIVE (NEGATIVE); METHADONE URINE NEGATIVE (NEGATIVE); OPIATES (MORPHINE) QUAL. URINE NEGATIVE (NEGATIVE); TRICYCLICS (TCA) QUAL. URINE POSITIVE (NEGATIVE)
[2018-09-17 22:55] VITALS: BP 122/67
--- NOTE | 2018-09-18 08:50 | History and Physical ---
History of Present Illness - HPI Chief Complaint: Psychosis HPI: 63 y/o male who presents to [facility] ER for change in behavior. Patient was noted by nursing staff to have increased aggressive behavior and was subsequently transferred to ER for evaluation. While in the ER patient had routine labwork which revealed the following... WBC 4.8 H/H 11.7/35.0 Platelets 189 Na 140 K 4.0 Bun/Cr 20/1.1 Glu 109 UA neg UDS + Tricyclics Patient was subsequently transferred to [facility] for further evaluation and treatment. Vital Signs: Last Vital Signs Temp 97.2 F 09/18/18 06:50 Pulse 74 09/18/18 06:50 Resp 19 09/18/18 06:50 BP 128/76 09/18/18 06:50 Pulse Ox 96 09/18/18 06:50 Past Medical History Cardiovascular: Report: No Pertinent Hx, Other (ischemic cardiomyopathy, sick sinus syndrome) Pulmonary: Report: No Pertinent Hx GARMENT LOOPER: Report: No Pertinent Hx GI: Report: No Pertinent Hx Psych: Report: Anxiety, Bipolar, Depression, Psychosis, Schizophrenia Musculoskeletal: Report: Osteoarthritis Rheumatologic: Report: No pertinent Hx Infectious Disease: Report: No Pertinent Hx Renal/: Report: No Pertinent Hx Endocrine: Report: Diabetes Dermatology: Report: No Pertinent Hx Other History: anemia - Past Surgical History Past Surgical History: No pertinent Hx Family Medical History - Family Member Mother History Unknown: Yes Ethnicity: Non- Hx Family Cancer: No Hx Family Coronary Artery Disease: No Hx Family Congestive Heart Failure: No Hx Family Stroke: No Hx Family Diabetes: No Hx Family AIDS: No Hx Family COPD: Yes Social History Smoke: No Alcohol: None Drugs: None Lives: Jail - Medications Home Medications: Home Medication Medication Instructions Recorded Type Aspirin [Aspirin Chewable] 81 mg PO DAILY 09/17/18 History Clonazepam [Klonopin] 0.5 mg PO BID 09/17/[address] [Depakote DR] 500 mg PO QAM 09/17/18 History Docusate Sodium [Dok] 250 mg PO QAM 09/17/18 History Ferrous Sulfate 325 mg PO DAILY 09/17/18 History [place]-3 Acid Ethyl Esters [Lovaza] 1 gm PO HS 09/17/18 History [place]-3 Fatty Acids/Fish Oil [Fish 1 each PO DAILY 09/17/18 History Oil 1,000 mg Softgel] QUEtiapine Fumarate [SEROquel] 200 mg PO BID 09/17/18 History QUEtiapine Fumarate [SEROquel] 400 mg PO HS 09/17/18 History - Allergies Allergies/Adverse Reactions: Allergies Allergy/AdvReac Type Severity Reaction Status Date / Time No Known Allergies Allergy Verified 05/14/17 16:19 Review of Systems - Review of Systems Constitutional: Report: No Significant Eyes: Report: No Significant ENT: Report: No Significant Respiratory: Report: No Significant Cardiovascular: Report: No Significant Gastrointestinal: Report: No Significant Genitourinary: Report: No Significant Musculoskeletal: Report: No Significant Skin: Report: No Significant Neurological: Report: No Significant Physical Exam - Physical Exam HEENT: Report: Ears Nose Throat within normal limits, Pharnyx within normal limits Neck: Report: Within normal limits Cardiovascular Systems: Report: +s1/s2 noted, Regular, Rate and Rhythm Respiratory: Report: Breath Sounds are within normal limits, Clear to Auscultation of lung warner Abdomen: Report: Non-tender to palpation, Tender to palpation Back: Report: Inspection of back is within normal limits. Extremities: Report: Non-tender to palpation. Skin: Report: Color of skin is within normal limits Neuro/Psych: Report: Mood affect is within normal limits - Lab Results All Lab Results last 24 hours: Laboratory Results - last 24 hr 09/17/18 09/17/18 09/17/18 19:40 19:40 20:15 WBC 4.8 RBC 3.86 Hgb 11.7 L Hct 35.0 L MCV 90.5 MCH 30.3 MCHC Differential 33.5 RDW 12.2 Plt Count 189 MPV 7.6 Neutrophils % 49.9 Lymphocytes % 39.0 Monocytes % 10.3 H Eosinophils % 0.7 Basophils % 0.1 Sodium Potassium Chloride Carbon Dioxide Anion Gap BUN Creatinine Est GFR ( Amer) Est GFR (Non-Af Amer) BUN/Creatinine Ratio Glucose Calcium Total Bilirubin AST ALT Alkaline Phosphatase Total Protein Albumin Globulin Albumin/Globulin Ratio Triglycerides Cholesterol LDL Cholesterol Direct HDL Cholesterol TSH Urine Source CLEAN C Urine Color STRAW Urine Clarity CLEAR Urine pH 6.0 Ur Specific [place] <= 1.005 Urine Protein NEGATIVE Urine Glucose (UA) NEGATIVE Urine Ketones NEGATIVE Urine Blood NEGATIVE Urine Nitrate NEGATIVE Urine Bilirubin NEGATIVE Urine Urobilinogen 0.2 Ur Leukocyte Esterase NEGATIVE Salicylates Urine Opiates Screen NEGATIVE Urine Methadone Screen NEGATIVE Acetaminophen Ur Barbiturates Screen NEGATIVE Ur Tricyclics Screen POSITIVE H Ur Phencyclidine Scrn NEGATIVE Amphetamines Screen NEGATIVE U Methamphetamines Scrn NEGATIVE U Benzodiazepines Scrn NEGATIVE U Cocaine Metab Screen NEGATIVE U Cannabinoids Screen NEGATIVE Ethyl Alcohol 09/17/18 09/17/18 20:15 20:15 WBC RBC Hgb Hct MCV MCH MCHC Differential RDW Plt Count MPV Neutrophils % Lymphocytes % Monocytes % Eosinophils % Basophils % Sodium 140 Potassium 4.0 Chloride 106 Carbon Dioxide 27.3 Anion Gap 10.7 BUN 21 Creatinine 1.1 Est GFR ( Amer) > 60.0 Est GFR (Non-Af Amer) > 60.0 BUN/Creatinine Ratio 19.1 Glucose 109 H Calcium 9.2 Total Bilirubin 0.2 L AST 24 ALT 18 Alkaline Phosphatase 54 Total Protein 7.1 Albumin 3.9 L Globulin 3.2 Albumin/Globulin Ratio 1.2 Triglycerides 125 Cholesterol 180 LDL Cholesterol Direct 88 HDL Cholesterol 64 TSH 2.05 Urine Source Urine Color Urine Clarity Urine pH Ur Specific [place] Urine Protein Urine Glucose (UA) Urine Ketones Urine Blood Urine Nitrate Urine Bilirubin Urine Urobilinogen Ur Leukocyte Esterase Salicylates < 25.0 L Urine Opiates Screen Urine Methadone Screen Acetaminophen < 10.0 L Ur Barbiturates Screen Ur Tricyclics Screen Ur Phencyclidine Scrn Amphetamines Screen U Methamphetamines Scrn U Benzodiazepines Scrn U Cocaine Metab Screen U Cannabinoids Screen Ethyl Alcohol < 10 - Assessment Assessment: Psychosis DM ischemic Cardiomyopathy Sick Sinus Syndrome Bipolar Disorder Insomnia Glaucoma Major Depression Schizoaffective Disorder Anemia Atherosclerosis - Plan Plan: Admit to [facility]
[2018-09-18] MEDS: Ferrous Sulfate 325 MG TAB PO SCH (09:06)
[2018-09-18] MEDS: Fish Oil 1,000 MG SGL PO SCH (09:06)
[2018-09-18] MEDS: Aspirin 81mg Chewable Tab PO SCH (09:06)
[2018-09-18] MEDS ORDERED: OMEGA ACID ETHYL ESTERS PO SCH (21:00)
--- NOTE | 2018-09-19 04:30 | Psychiatric Evaluation ---
DATE OF SERVICE: PSYCHIATRIC INITIAL EVALUATION AND MENTAL STATUS EXAM PATIENT'S AGE: 63-year-old. SEX: Male. PHYSICIAN: Dr. Crawley. CHIEF COMPLAINT: Agitation and inappropriate behavior. HISTORY OF PRESENT ILLNESS: The patient is a 63-year-old male who was transferred to the hospital from [facility] because of increased agitation and increased mood swings. The patient also has been aggressive and has not been able to follow any of staff directions. The patient also has been at times threatening others. On the other hand, he is still continuing to take his medications, but not helping as much. The patient also has been actively responding and talking to himself at times. PAST PSYCHIATRIC HISTORY: The patient has a long history of bipolar disorder with psychosis. PAST MEDICAL HISTORY: The patient has no major medical problems at this time. No physical complaints. He does have history of diabetes mellitus and arthritis. SOCIAL HISTORY: The patient lives in [facility]. No known alcohol or drug use. No known legal issues or abuse issues. ALLERGIES: No known allergies. MENTAL STATUS EXAMINATION: The patient appears his stated age. Anxious. Irritable mood. Flat affect. Thought processes are circumstantial, but no flight of ideas. The patient denies any auditory or visual hallucinations, but seems to be suspicious and paranoid. He denies any thoughts of suicide or homicide. The patient is alert and oriented to time, place, person, and situation. Intact immediate, recent and remote memories. Poor insight and poor judgment. Seems to be of average intelligence based on his verbal ability. ASSESSMENT: PRIMARY DIAGNOSIS: Bipolar disorder, manic episode, severe, with psychotic features. MEDICAL DIAGNOSES: Arthritis, diabetes mellitus. TREATMENT PLAN: We will monitor the patient's behavior and condition closely. We will continue his psychotropic medications and will adjust the dose. ESTIMATED LENGTH OF STAY: 5-7 days. THE PATIENT'S STRENGTHS AND WEAKNESSES: The patient's strength is not clear at this time except that he is cooperative for his treatment and he has support from the custodial. Weaknesses is his ineffective coping and his poor impulse control. AFTER DISCHARGE PLAN: The patient will return to [facility] with plans for outpatient treatment and followup. CRITERIA FOR DISCHARGE: Better impulse control and the patient will be less irritable and less agitated. JOB# [id number]
--- NOTE | 2018-09-19 06:14 | General Progress Note ---
Subjective - Review of Systems Service Date: 09/19/18 Subjective: Awake, Alert, no acute distress. Objective - Results Result Diagrams: 09/17/18 20:15 09/17/18 20:15 Recent Labs: Laboratory Last Values WBC 4.8 Th/cmm (4.8-10.8) 09/17/18 20:15 RBC 3.86 Mil/cmm (3.80-5.80) 09/17/18 20:15 Hgb 11.7 gm/dL (12-16) L 09/17/18 20:15 Hct 35.0 % (41.0-60) L 09/17/18 20:15 MCV 90.5 fl (80-99) 09/17/18 20:15 MCH 30.3 pg (27.0-31.0) 09/17/18 20:15 MCHC Differential 33.5 pg (28.0-36.0) 09/17/18 20:15 RDW 12.2 % (11.5-20.0) 09/17/18 20:15 Plt Count 189 Th/cmm (150-400) 09/17/18 20:15 MPV 7.6 fl 09/17/18 20:15 Neutrophils % 49.9 % (40.0-80.0) 09/17/18 20:15 Lymphocytes % 39.0 % (20.0-50.0) 09/17/18 20:15 Monocytes % 10.3 % (2.0-10.0) H 09/17/18 20:15 Eosinophils % 0.7 % (0.0-5.0) 09/17/18 20:15 Basophils % 0.1 % (0.0-2.0) 09/17/18 20:15 Sodium 140 mEq/L (136-145) 09/17/18 20:15 Potassium 4.0 mEq/L (3.5-5.1) 09/17/18 20:15 Chloride 106 mEq/L (98-107) 09/17/18 20:15 Carbon Dioxide 27.3 mEq/L (21.0-31.0) 09/17/18 20:15 Anion Gap 10.7 (7.0-16.0) 09/17/18 20:15 BUN 21 mg/dL (7-25) 09/17/18 20:15 Creatinine 1.1 mg/dL (0.7-1.3) 09/17/18 20:15 Est GFR ( Amer) > 60.0 ml/min (>90) 09/17/18 20:15 Est GFR (Non-Af Amer) > 60.0 ml/min 09/17/18 20:15 BUN/Creatinine Ratio 19.1 09/17/18 20:15 Glucose 109 mg/dL (70-105) H 09/17/18 20:15 Calcium 9.2 mg/dL (8.6-10.3) 09/17/18 20:15 Total Bilirubin 0.2 mg/dL (0.3-1.0) L 09/17/18 20:15 AST 24 U/L (13-39) 09/17/18 20:15 ALT 18 U/L (7-52) 09/17/18 20:15 Alkaline Phosphatase 54 U/L (34-104) 09/17/18 20:15 Total Protein 7.1 gm/dL (6.0-8.3) 09/17/18 20:15 Albumin 3.9 gm/dL (4.2-5.5) L 09/17/18 20:15 Globulin 3.2 gm/dL 09/17/18 20:15 Albumin/Globulin Ratio 1.2 (1.0-1.8) 09/17/18 20:15 Triglycerides 125 mg/dL (<150) 09/17/18 20:15 Cholesterol 180 mg/dL (<200) 09/17/18 20:15 LDL Cholesterol Direct 88 mg/dL (75-193) 09/17/18 20:15 HDL Cholesterol 64 mg/dL (23-92) 09/17/18 20:15 TSH 2.05 uIU/ml (0.34-5.60) 09/17/18 20:15 Urine Source CLEAN C 09/17/18 19:40 Urine Color STRAW 09/17/18 19:40 Urine Clarity CLEAR (CLEAR) 09/17/18 19:40 Urine pH 6.0 (4.6 - 8.0) 09/17/18 19:40 Ur Specific [place] <= 1.005 (1.005-1.030) 09/17/18 19:40 Urine Protein NEGATIVE mg/dL (NEGATIVE) 09/17/18 19:40 Urine Glucose (UA) NEGATIVE mg/dL (NEGATIVE) 09/17/18 19:40 Urine Ketones NEGATIVE mg/dL (NEGATIVE) 09/17/18 19:40 Urine Blood NEGATIVE (NEGATIVE) 09/17/18 19:40 Urine Nitrate NEGATIVE (NEGATIVE) 09/17/18 19:40 Urine Bilirubin NEGATIVE (NEGATIVE) 09/17/18 19:40 Urine Urobilinogen 0.2 E.U./dL (0.2 - 1.0) 09/17/18 19:40 Ur Leukocyte Esterase NEGATIVE (NEGATIVE) 09/17/18 19:40 Salicylates < 25.0 mg/L (30.0-100.0) L 09/17/18 20:15 Urine Opiates Screen NEGATIVE (NEGATIVE) 09/17/18 19:40 Urine Methadone Screen NEGATIVE (NEGATIVE) 09/17/18 19:40 Acetaminophen < 10.0 ug/mL (10.0-30.0) L 09/17/18 20:15 Ur Barbiturates Screen NEGATIVE (NEGATIVE) 09/17/18 19:40 Ur Tricyclics Screen POSITIVE (NEGATIVE) H 09/17/18 19:40 Ur Phencyclidine Scrn NEGATIVE (NEGATIVE) 09/17/18 19:40 Amphetamines Screen NEGATIVE (NEGATIVE) 09/17/18 19:40 U Methamphetamines Scrn NEGATIVE (NEGATIVE) 09/17/18 19:40 U Benzodiazepines Scrn NEGATIVE (NEGATIVE) 09/17/18 19:40 U Cocaine Metab Screen NEGATIVE (NEGATIVE) 09/17/18 19:40 U Cannabinoids Screen NEGATIVE (NEGATIVE) 09/17/18 19:40 Ethyl Alcohol < 10 mg/dL (0-10) 09/17/18 20:15 RPR NONREACTIVE (NONREACTIVE) 09/17/18 20:15 - Physical Exam Vitals and I&O: Vital Signs Temp 97.8 F 09/18/18 20:35 Pulse 78 09/18/18 20:35 Resp 18 09/18/18 20:35 BP 137/70 09/18/18 20:35 Pulse Ox 98 09/18/18 20:35 Intake & Output 09/18/18 09/18/18 09/19/18 06:59 18:59 06:59 Intake Total 950 240 Balance 950 240 Weight (lbs) 68.039 kg Intake: Oral 950 240 Other: # Voids 4 2 # Bowel Movements 1 Weight Source Estimated Active Medications: Current Medications Aspirin (Aspirin Chewable) 81 mg PO DAILY [facility] Stop: 11/17/18 08:59 Last Admin: 09/18/18 09:06 Dose: 81 mg Clonazepam (Klonopin) 0.5 mg PO BID [facility]; Protocol Stop: 11/17/18 08:59 Divalproex Sodium (Depakote Dr) 500 mg PO QAM [facility]; Protocol Stop: 11/17/18 08:59 Docusate Sodium (Colace) 250 mg PO QAM [facility] Stop: 11/17/18 08:59 Last Admin: 09/18/18 09:06 Dose: 250 mg Ferrous Sulfate (Iron) 325 mg PO DAILY [facility] Stop: 11/17/18 08:59 Last Admin: 09/18/18 09:06 Dose: 325 mg Fish Oil ([place] 3) 1,000 mg PO DAILY [facility] Stop: 11/17/18 08:59 Last Admin: 09/18/18 09:06 Dose: 1,000 mg Lorazepam (Ativan) 0.5 mg PO Q4HR PRN; Protocol PRN Reason: Anxiety Stop: 10/18/18 00:32 Last Admin: 09/19/18 02:53 Dose: 0.5 mg Quetiapine Fumarate (Seroquel) 200 mg PO BID [facility]; Protocol Stop: 11/17/18 08:59 Quetiapine Fumarate (Seroquel) 400 mg PO HS [facility]; Protocol Stop: 11/17/18 20:59 Last Admin: 09/18/18 22:00 Dose: 400 mg Zolpidem Tartrate (Ambien) 5 mg PO HS PRN PRN Reason: Insomnia Stop: 11/17/18 00:32 Last Admin: 09/18/18 20:39 Dose: 5 mg General: Alert, Oriented x3, No acute distress HEENT: Atraumatic, EOMI Neck: Supple Cardiovascular: Regular rate, Normal S1, Normal S2 Abdomen: Bowel sounds Extremities: no Clubbing, no Cyanosis, no Edema Assessment/Plan - Assessment Assessment: Psychosis DM ischemic Cardiomyopathy Sick Sinus Syndrome Bipolar Disorder Insomnia Glaucoma Major Depression Schizoaffective Disorder Anemia Atherosclerosis - Plan Plan: Admit to [facility]
[2018-09-19] MEDS: Fish Oil 1,000 MG SGL PO SCH (08:52)
[2018-09-19] MEDS: Aspirin 81mg Chewable Tab PO SCH (08:53)
[2018-09-19] MEDS: Ferrous Sulfate 325 MG TAB PO SCH (08:53)
--- NOTE | 2018-09-20 05:52 | Progress Notes ---
DATE: SUBJECTIVE: Case was discussed with staff of the patient, reviewed records. This 63-year-old male who was admitted on 09/17/2018 because of agitation and inappropriate behavior. He came from [place] because of increased agitation and mood swings, has been aggressive, not been able to follow staff direction, threatening others. When I talked to him, he was confused, unable to present a meaningful conversation or make safe plan for self-care with constricted affect. He is compliant with the medication with no side effects, no sedation, no nausea, no extrapyramidal symptoms, Depakote 500 mg in the morning and Seroquel 200 mg twice a day and 400 mg at bedtime. No sedation, no nausea, no extrapyramidal symptoms. I will continue the patient in group therapy, milieu therapy, adjust medication as needed. JOB# [id number]
--- NOTE | 2018-09-20 08:02 | General Progress Note ---
Subjective - Review of Systems Service Date: 09/20/18 Subjective: Awake, Alert, no acute distress. Objective - Results Result Diagrams: 09/17/18 20:15 09/17/18 20:15 Recent Labs: Laboratory Last Values WBC 4.8 Th/cmm (4.8-10.8) 09/17/18 20:15 RBC 3.86 Mil/cmm (3.80-5.80) 09/17/18 20:15 Hgb 11.7 gm/dL (12-16) L 09/17/18 20:15 Hct 35.0 % (41.0-60) L 09/17/18 20:15 MCV 90.5 fl (80-99) 09/17/18 20:15 MCH 30.3 pg (27.0-31.0) 09/17/18 20:15 MCHC Differential 33.5 pg (28.0-36.0) 09/17/18 20:15 RDW 12.2 % (11.5-20.0) 09/17/18 20:15 Plt Count 189 Th/cmm (150-400) 09/17/18 20:15 MPV 7.6 fl 09/17/18 20:15 Neutrophils % 49.9 % (40.0-80.0) 09/17/18 20:15 Lymphocytes % 39.0 % (20.0-50.0) 09/17/18 20:15 Monocytes % 10.3 % (2.0-10.0) H 09/17/18 20:15 Eosinophils % 0.7 % (0.0-5.0) 09/17/18 20:15 Basophils % 0.1 % (0.0-2.0) 09/17/18 20:15 Sodium 140 mEq/L (136-145) 09/17/18 20:15 Potassium 4.0 mEq/L (3.5-5.1) 09/17/18 20:15 Chloride 106 mEq/L (98-107) 09/17/18 20:15 Carbon Dioxide 27.3 mEq/L (21.0-31.0) 09/17/18 20:15 Anion Gap 10.7 (7.0-16.0) 09/17/18 20:15 BUN 21 mg/dL (7-25) 09/17/18 20:15 Creatinine 1.1 mg/dL (0.7-1.3) 09/17/18 20:15 Est GFR ( Amer) > 60.0 ml/min (>90) 09/17/18 20:15 Est GFR (Non-Af Amer) > 60.0 ml/min 09/17/18 20:15 BUN/Creatinine Ratio 19.1 09/17/18 20:15 Glucose 109 mg/dL (70-105) H 09/17/18 20:15 Calcium 9.2 mg/dL (8.6-10.3) 09/17/18 20:15 Total Bilirubin 0.2 mg/dL (0.3-1.0) L 09/17/18 20:15 AST 24 U/L (13-39) 09/17/18 20:15 ALT 18 U/L (7-52) 09/17/18 20:15 Alkaline Phosphatase 54 U/L (34-104) 09/17/18 20:15 Total Protein 7.1 gm/dL (6.0-8.3) 09/17/18 20:15 Albumin 3.9 gm/dL (4.2-5.5) L 09/17/18 20:15 Globulin 3.2 gm/dL 09/17/18 20:15 Albumin/Globulin Ratio 1.2 (1.0-1.8) 09/17/18 20:15 Triglycerides 125 mg/dL (<150) 09/17/18 20:15 Cholesterol 180 mg/dL (<200) 09/17/18 20:15 LDL Cholesterol Direct 88 mg/dL (75-193) 09/17/18 20:15 HDL Cholesterol 64 mg/dL (23-92) 09/17/18 20:15 TSH 2.05 uIU/ml (0.34-5.60) 09/17/18 20:15 Urine Source CLEAN C 09/17/18 19:40 Urine Color STRAW 09/17/18 19:40 Urine Clarity CLEAR (CLEAR) 09/17/18 19:40 Urine pH 6.0 (4.6 - 8.0) 09/17/18 19:40 Ur Specific [place] <= 1.005 (1.005-1.030) 09/17/18 19:40 Urine Protein NEGATIVE mg/dL (NEGATIVE) 09/17/18 19:40 Urine Glucose (UA) NEGATIVE mg/dL (NEGATIVE) 09/17/18 19:40 Urine Ketones NEGATIVE mg/dL (NEGATIVE) 09/17/18 19:40 Urine Blood NEGATIVE (NEGATIVE) 09/17/18 19:40 Urine Nitrate NEGATIVE (NEGATIVE) 09/17/18 19:40 Urine Bilirubin NEGATIVE (NEGATIVE) 09/17/18 19:40 Urine Urobilinogen 0.2 E.U./dL (0.2 - 1.0) 09/17/18 19:40 Ur Leukocyte Esterase NEGATIVE (NEGATIVE) 09/17/18 19:40 Salicylates < 25.0 mg/L (30.0-100.0) L 09/17/18 20:15 Urine Opiates Screen NEGATIVE (NEGATIVE) 09/17/18 19:40 Urine Methadone Screen NEGATIVE (NEGATIVE) 09/17/18 19:40 Acetaminophen < 10.0 ug/mL (10.0-30.0) L 09/17/18 20:15 Ur Barbiturates Screen NEGATIVE (NEGATIVE) 09/17/18 19:40 Ur Tricyclics Screen POSITIVE (NEGATIVE) H 09/17/18 19:40 Ur Phencyclidine Scrn NEGATIVE (NEGATIVE) 09/17/18 19:40 Amphetamines Screen NEGATIVE (NEGATIVE) 09/17/18 19:40 U Methamphetamines Scrn NEGATIVE (NEGATIVE) 09/17/18 19:40 U Benzodiazepines Scrn NEGATIVE (NEGATIVE) 09/17/18 19:40 U Cocaine Metab Screen NEGATIVE (NEGATIVE) 09/17/18 19:40 U Cannabinoids Screen NEGATIVE (NEGATIVE) 09/17/18 19:40 Ethyl Alcohol < 10 mg/dL (0-10) 09/17/18 20:15 RPR NONREACTIVE (NONREACTIVE) 09/17/18 20:15 - Physical Exam Vitals and I&O: Vital Signs Temp 97.6 F 09/20/18 06:26 Pulse 93 09/20/18 06:26 Resp 19 09/20/18 06:26 BP 137/88 09/20/18 06:26 Pulse Ox 96 09/20/18 06:26 Intake & Output 09/19/18 09/20/18 09/20/18 18:59 06:59 18:59 Intake Total 1000 120 Balance 1000 120 Intake: Oral 1000 120 Other: # Voids 4 3 # Bowel Movements 1 Active Medications: Current Medications Aspirin (Aspirin Chewable) 81 mg PO DAILY [facility] Stop: 11/17/18 08:59 Last Admin: 09/19/18 08:53 Dose: 81 mg Clonazepam (Klonopin) 0.5 mg PO BID [facility]; Protocol Stop: 11/17/18 08:59 Last Admin: 09/19/18 16:42 Dose: 0.5 mg Divalproex Sodium (Depakote Dr) 500 mg PO QAM [facility]; Protocol Stop: 11/17/18 08:59 Last Admin: 09/19/18 08:53 Dose: 500 mg Docusate Sodium (Colace) 250 mg PO QAM [facility] Stop: 11/17/18 08:59 Last Admin: 09/19/18 08:52 Dose: 250 mg Ferrous Sulfate (Iron) 325 mg PO DAILY [facility] Stop: 11/17/18 08:59 Last Admin: 09/19/18 08:53 Dose: 325 mg Fish Oil ([place] 3) 1,000 mg PO DAILY [facility] Stop: 11/17/18 08:59 Last Admin: 09/19/18 08:52 Dose: 1,000 mg Lorazepam (Ativan) 0.5 mg PO Q4HR PRN; Protocol PRN Reason: Anxiety Stop: 10/18/18 00:32 Last Admin: 09/19/18 20:35 Dose: 0.5 mg Quetiapine Fumarate (Seroquel) 200 mg PO BID [facility]; Protocol Stop: 11/17/18 08:59 Last Admin: 09/19/18 16:42 Dose: 200 mg Quetiapine Fumarate (Seroquel) 400 mg PO HS [facility]; Protocol Stop: 11/17/18 20:59 Last Admin: 09/19/18 20:35 Dose: 400 mg Zolpidem Tartrate (Ambien) 5 mg PO HS PRN PRN Reason: Insomnia Stop: 11/17/18 00:32 Last Admin: 09/19/18 23:02 Dose: 5 mg General: Alert, Oriented x3, No acute distress HEENT: Atraumatic, EOMI Neck: Supple Cardiovascular: Regular rate, Normal S1, Normal S2 Abdomen: Bowel sounds Extremities: no Clubbing, no Cyanosis, no Edema Assessment/Plan - Assessment Assessment: Psychosis DM ischemic Cardiomyopathy Sick Sinus Syndrome Bipolar Disorder Insomnia Glaucoma Major Depression Schizoaffective Disorder Anemia Atherosclerosis - Plan Plan: Admit to [facility]
[2018-09-20] MEDS: Ferrous Sulfate 325 MG TAB PO SCH (09:21)
[2018-09-20] MEDS: Aspirin 81mg Chewable Tab PO SCH (09:22)
[2018-09-20] MEDS: Fish Oil 1,000 MG SGL PO SCH (09:22)
--- NOTE | 2018-09-21 03:00 | Progress Notes ---
DATE: 09/20/2018 FOLLOWUP PROGRESS NOTE PROGRESS ON THE UNIT: Case was discussed with staff of the patient, reviewed records. The patient continues to be irritable, aggressive, confused, unable to carry on a meaningful conversation, unpredictable, impulsive, needing redirection. He is sleeping better, eating better. He has been compliant with the medication with no side effects, no sedation, no nausea, and no extrapyramidal symptoms. We will continue to work with the patient in group therapy and milieu therapy, adjust the medication as needed. JOB# [id number]
--- NOTE | 2018-09-21 08:03 | General Progress Note ---
Subjective - Review of Systems Service Date: 09/21/18 Subjective: Awake, Alert, no acute distress. Objective - Results Result Diagrams: 09/17/18 20:15 09/17/18 20:15 Recent Labs: Laboratory Last Values WBC 4.8 Th/cmm (4.8-10.8) 09/17/18 20:15 RBC 3.86 Mil/cmm (3.80-5.80) 09/17/18 20:15 Hgb 11.7 gm/dL (12-16) L 09/17/18 20:15 Hct 35.0 % (41.0-60) L 09/17/18 20:15 MCV 90.5 fl (80-99) 09/17/18 20:15 MCH 30.3 pg (27.0-31.0) 09/17/18 20:15 MCHC Differential 33.5 pg (28.0-36.0) 09/17/18 20:15 RDW 12.2 % (11.5-20.0) 09/17/18 20:15 Plt Count 189 Th/cmm (150-400) 09/17/18 20:15 MPV 7.6 fl 09/17/18 20:15 Neutrophils % 49.9 % (40.0-80.0) 09/17/18 20:15 Lymphocytes % 39.0 % (20.0-50.0) 09/17/18 20:15 Monocytes % 10.3 % (2.0-10.0) H 09/17/18 20:15 Eosinophils % 0.7 % (0.0-5.0) 09/17/18 20:15 Basophils % 0.1 % (0.0-2.0) 09/17/18 20:15 Sodium 140 mEq/L (136-145) 09/17/18 20:15 Potassium 4.0 mEq/L (3.5-5.1) 09/17/18 20:15 Chloride 106 mEq/L (98-107) 09/17/18 20:15 Carbon Dioxide 27.3 mEq/L (21.0-31.0) 09/17/18 20:15 Anion Gap 10.7 (7.0-16.0) 09/17/18 20:15 BUN 21 mg/dL (7-25) 09/17/18 20:15 Creatinine 1.1 mg/dL (0.7-1.3) 09/17/18 20:15 Est GFR ( Amer) > 60.0 ml/min (>90) 09/17/18 20:15 Est GFR (Non-Af Amer) > 60.0 ml/min 09/17/18 20:15 BUN/Creatinine Ratio 19.1 09/17/18 20:15 Glucose 109 mg/dL (70-105) H 09/17/18 20:15 Calcium 9.2 mg/dL (8.6-10.3) 09/17/18 20:15 Total Bilirubin 0.2 mg/dL (0.3-1.0) L 09/17/18 20:15 AST 24 U/L (13-39) 09/17/18 20:15 ALT 18 U/L (7-52) 09/17/18 20:15 Alkaline Phosphatase 54 U/L (34-104) 09/17/18 20:15 Total Protein 7.1 gm/dL (6.0-8.3) 09/17/18 20:15 Albumin 3.9 gm/dL (4.2-5.5) L 09/17/18 20:15 Globulin 3.2 gm/dL 09/17/18 20:15 Albumin/Globulin Ratio 1.2 (1.0-1.8) 09/17/18 20:15 Triglycerides 125 mg/dL (<150) 09/17/18 20:15 Cholesterol 180 mg/dL (<200) 09/17/18 20:15 LDL Cholesterol Direct 88 mg/dL (75-193) 09/17/18 20:15 HDL Cholesterol 64 mg/dL (23-92) 09/17/18 20:15 TSH 2.05 uIU/ml (0.34-5.60) 09/17/18 20:15 Urine Source CLEAN C 09/17/18 19:40 Urine Color STRAW 09/17/18 19:40 Urine Clarity CLEAR (CLEAR) 09/17/18 19:40 Urine pH 6.0 (4.6 - 8.0) 09/17/18 19:40 Ur Specific [place] <= 1.005 (1.005-1.030) 09/17/18 19:40 Urine Protein NEGATIVE mg/dL (NEGATIVE) 09/17/18 19:40 Urine Glucose (UA) NEGATIVE mg/dL (NEGATIVE) 09/17/18 19:40 Urine Ketones NEGATIVE mg/dL (NEGATIVE) 09/17/18 19:40 Urine Blood NEGATIVE (NEGATIVE) 09/17/18 19:40 Urine Nitrate NEGATIVE (NEGATIVE) 09/17/18 19:40 Urine Bilirubin NEGATIVE (NEGATIVE) 09/17/18 19:40 Urine Urobilinogen 0.2 E.U./dL (0.2 - 1.0) 09/17/18 19:40 Ur Leukocyte Esterase NEGATIVE (NEGATIVE) 09/17/18 19:40 Salicylates < 25.0 mg/L (30.0-100.0) L 09/17/18 20:15 Urine Opiates Screen NEGATIVE (NEGATIVE) 09/17/18 19:40 Urine Methadone Screen NEGATIVE (NEGATIVE) 09/17/18 19:40 Acetaminophen < 10.0 ug/mL (10.0-30.0) L 09/17/18 20:15 Ur Barbiturates Screen NEGATIVE (NEGATIVE) 09/17/18 19:40 Ur Tricyclics Screen POSITIVE (NEGATIVE) H 09/17/18 19:40 Ur Phencyclidine Scrn NEGATIVE (NEGATIVE) 09/17/18 19:40 Amphetamines Screen NEGATIVE (NEGATIVE) 09/17/18 19:40 U Methamphetamines Scrn NEGATIVE (NEGATIVE) 09/17/18 19:40 U Benzodiazepines Scrn NEGATIVE (NEGATIVE) 09/17/18 19:40 U Cocaine Metab Screen NEGATIVE (NEGATIVE) 09/17/18 19:40 U Cannabinoids Screen NEGATIVE (NEGATIVE) 09/17/18 19:40 Ethyl Alcohol < 10 mg/dL (0-10) 09/17/18 20:15 RPR NONREACTIVE (NONREACTIVE) 09/17/18 20:15 - Physical Exam Vitals and I&O: Vital Signs Temp 97.3 F 09/21/18 06:31 Pulse 84 09/21/18 06:31 Resp 19 09/21/18 06:31 BP 133/83 09/21/18 06:31 Pulse Ox 100 09/21/18 06:31 Intake & Output 09/20/18 09/21/18 09/21/18 18:59 06:59 18:59 Intake Total 1400 240 Balance 1400 240 Intake: Oral 1400 240 Other: # Voids 4 1 # Bowel Movements 0 Active Medications: Current Medications Aspirin (Aspirin Chewable) 81 mg PO DAILY [facility] Stop: 11/17/18 08:59 Last Admin: 09/20/18 09:22 Dose: 81 mg Clonazepam (Klonopin) 0.5 mg PO BID [facility]; Protocol Stop: 11/17/18 08:59 Last Admin: 09/20/18 17:51 Dose: 0.5 mg Divalproex Sodium (Depakote Dr) 500 mg PO QAM [facility]; Protocol Stop: 11/17/18 08:59 Last Admin: 09/20/18 09:21 Dose: 500 mg Docusate Sodium (Colace) 250 mg PO QAM [facility] Stop: 11/17/18 08:59 Last Admin: 09/20/18 09:20 Dose: 250 mg Ferrous Sulfate (Iron) 325 mg PO DAILY [facility] Stop: 11/17/18 08:59 Last Admin: 09/20/18 09:21 Dose: 325 mg Fish Oil ([place] 3) 1,000 mg PO DAILY [facility] Stop: 11/17/18 08:59 Last Admin: 09/20/18 09:22 Dose: 1,000 mg Lorazepam (Ativan) 0.5 mg PO Q4HR PRN; Protocol PRN Reason: Anxiety Stop: 10/18/18 00:32 Last Admin: 09/19/18 20:35 Dose: 0.5 mg Quetiapine Fumarate (Seroquel) 200 mg PO BID [facility]; Protocol Stop: 11/17/18 08:59 Last Admin: 09/20/18 17:51 Dose: 200 mg Quetiapine Fumarate (Seroquel) 400 mg PO HS [facility]; Protocol Stop: 11/17/18 20:59 Last Admin: 09/20/18 20:21 Dose: 400 mg Zolpidem Tartrate (Ambien) 5 mg PO HS PRN PRN Reason: Insomnia Stop: 11/17/18 00:32 Last Admin: 09/19/18 23:02 Dose: 5 mg General: Alert, Oriented x3, No acute distress HEENT: Atraumatic, EOMI Neck: Supple Cardiovascular: Regular rate, Normal S1, Normal S2 Abdomen: Bowel sounds Extremities: no Clubbing, no Cyanosis, no Edema Assessment/Plan - Assessment Assessment: Psychosis DM ischemic Cardiomyopathy Sick Sinus Syndrome Bipolar Disorder Insomnia Glaucoma Major Depression Schizoaffective Disorder Anemia Atherosclerosis - Plan Plan: Admit to [facility]
[2018-09-21] MEDS: Aspirin 81mg Chewable Tab PO SCH (08:47)
[2018-09-21] MEDS: Fish Oil 1,000 MG SGL PO SCH (08:47)
[2018-09-21] MEDS: Ferrous Sulfate 325 MG TAB PO SCH (08:47)
--- NOTE | 2018-09-22 00:33 | Progress Notes ---
DATE: 09/21/2018 Case was discussed with staff of the patient, reviewed records. The patient continues to be irritable, confused, internally preoccupied, unable to make safe plan for self-care. Continues to be easily agitated. He has been compliant with the medication with no side effects, no sedation, no nausea, and no extrapyramidal symptoms and will be checking his Depakote level. We will continue outpatient group therapy, milieu therapy, and adjust medication as needed. JOB# [id number]
--- NOTE | 2018-09-22 08:28 | General Progress Note ---
Subjective - Review of Systems Service Date: 09/22/18 Subjective: Awake, Alert, no acute distress. VS T 97.2 P84 R20 BP 121/77 Objective - Results Result Diagrams: 09/17/18 20:15 09/17/18 20:15 Recent Labs: Laboratory Last Values WBC 4.8 Th/cmm (4.8-10.8) 09/17/18 20:15 RBC 3.86 Mil/cmm (3.80-5.80) 09/17/18 20:15 Hgb 11.7 gm/dL (12-16) L 09/17/18 20:15 Hct 35.0 % (41.0-60) L 09/17/18 20:15 MCV 90.5 fl (80-99) 09/17/18 20:15 MCH 30.3 pg (27.0-31.0) 09/17/18 20:15 MCHC Differential 33.5 pg (28.0-36.0) 09/17/18 20:15 RDW 12.2 % (11.5-20.0) 09/17/18 20:15 Plt Count 189 Th/cmm (150-400) 09/17/18 20:15 MPV 7.6 fl 09/17/18 20:15 Neutrophils % 49.9 % (40.0-80.0) 09/17/18 20:15 Lymphocytes % 39.0 % (20.0-50.0) 09/17/18 20:15 Monocytes % 10.3 % (2.0-10.0) H 09/17/18 20:15 Eosinophils % 0.7 % (0.0-5.0) 09/17/18 20:15 Basophils % 0.1 % (0.0-2.0) 09/17/18 20:15 Sodium 140 mEq/L (136-145) 09/17/18 20:15 Potassium 4.0 mEq/L (3.5-5.1) 09/17/18 20:15 Chloride 106 mEq/L (98-107) 09/17/18 20:15 Carbon Dioxide 27.3 mEq/L (21.0-31.0) 09/17/18 20:15 Anion Gap 10.7 (7.0-16.0) 09/17/18 20:15 BUN 21 mg/dL (7-25) 09/17/18 20:15 Creatinine 1.1 mg/dL (0.7-1.3) 09/17/18 20:15 Est GFR ( Amer) > 60.0 ml/min (>90) 09/17/18 20:15 Est GFR (Non-Af Amer) > 60.0 ml/min 09/17/18 20:15 BUN/Creatinine Ratio 19.1 09/17/18 20:15 Glucose 109 mg/dL (70-105) H 09/17/18 20:15 Calcium 9.2 mg/dL (8.6-10.3) 09/17/18 20:15 Total Bilirubin 0.2 mg/dL (0.3-1.0) L 09/17/18 20:15 AST 24 U/L (13-39) 09/17/18 20:15 ALT 18 U/L (7-52) 09/17/18 20:15 Alkaline Phosphatase 54 U/L (34-104) 09/17/18 20:15 Total Protein 7.1 gm/dL (6.0-8.3) 09/17/18 20:15 Albumin 3.9 gm/dL (4.2-5.5) L 09/17/18 20:15 Globulin 3.2 gm/dL 09/17/18 20:15 Albumin/Globulin Ratio 1.2 (1.0-1.8) 09/17/18 20:15 Triglycerides 125 mg/dL (<150) 09/17/18 20:15 Cholesterol 180 mg/dL (<200) 09/17/18 20:15 LDL Cholesterol Direct 88 mg/dL (75-193) 09/17/18 20:15 HDL Cholesterol 64 mg/dL (23-92) 09/17/18 20:15 TSH 2.05 uIU/ml (0.34-5.60) 09/17/18 20:15 Urine Source CLEAN C 09/17/18 19:40 Urine Color STRAW 09/17/18 19:40 Urine Clarity CLEAR (CLEAR) 09/17/18 19:40 Urine pH 6.0 (4.6 - 8.0) 09/17/18 19:40 Ur Specific [place] <= 1.005 (1.005-1.030) 09/17/18 19:40 Urine Protein NEGATIVE mg/dL (NEGATIVE) 09/17/18 19:40 Urine Glucose (UA) NEGATIVE mg/dL (NEGATIVE) 09/17/18 19:40 Urine Ketones NEGATIVE mg/dL (NEGATIVE) 09/17/18 19:40 Urine Blood NEGATIVE (NEGATIVE) 09/17/18 19:40 Urine Nitrate NEGATIVE (NEGATIVE) 09/17/18 19:40 Urine Bilirubin NEGATIVE (NEGATIVE) 09/17/18 19:40 Urine Urobilinogen 0.2 E.U./dL (0.2 - 1.0) 09/17/18 19:40 Ur Leukocyte Esterase NEGATIVE (NEGATIVE) 09/17/18 19:40 Salicylates < 25.0 mg/L (30.0-100.0) L 09/17/18 20:15 Urine Opiates Screen NEGATIVE (NEGATIVE) 09/17/18 19:40 Urine Methadone Screen NEGATIVE (NEGATIVE) 09/17/18 19:40 Acetaminophen < 10.0 ug/mL (10.0-30.0) L 09/17/18 20:15 Ur Barbiturates Screen NEGATIVE (NEGATIVE) 09/17/18 19:40 Ur Tricyclics Screen POSITIVE (NEGATIVE) H 09/17/18 19:40 Ur Phencyclidine Scrn NEGATIVE (NEGATIVE) 09/17/18 19:40 Amphetamines Screen NEGATIVE (NEGATIVE) 09/17/18 19:40 U Methamphetamines Scrn NEGATIVE (NEGATIVE) 09/17/18 19:40 U Benzodiazepines Scrn NEGATIVE (NEGATIVE) 09/17/18 19:40 U Cocaine Metab Screen NEGATIVE (NEGATIVE) 09/17/18 19:40 U Cannabinoids Screen NEGATIVE (NEGATIVE) 09/17/18 19:40 Ethyl Alcohol < 10 mg/dL (0-10) 09/17/18 20:15 RPR NONREACTIVE (NONREACTIVE) 09/17/18 20:15 - Physical Exam Vitals and I&O: Vital Signs Temp 97.2 F 09/22/18 06:31 Pulse 84 09/22/18 06:31 Resp 20 09/22/18 06:31 BP 121/77 09/22/18 06:31 Pulse Ox 100 09/22/18 06:31 Intake & Output 09/21/18 09/22/18 09/22/18 18:59 06:59 18:59 Intake Total 120 Balance 120 Intake: Oral 120 Other: # Voids 2 # Bowel Movements 0 Active Medications: Current Medications Aspirin (Aspirin Chewable) 81 mg PO DAILY [facility] Stop: 11/17/18 08:59 Last Admin: 09/21/18 08:47 Dose: 81 mg Clonazepam (Klonopin) 0.5 mg PO BID [facility]; Protocol Stop: 11/17/18 08:59 Last Admin: 09/21/18 16:46 Dose: 0.5 mg Divalproex Sodium (Depakote Dr) 500 mg PO QAM [facility]; Protocol Stop: 11/17/18 08:59 Last Admin: 09/21/18 08:47 Dose: 500 mg Docusate Sodium (Colace) 250 mg PO QAM [facility] Stop: 11/17/18 08:59 Last Admin: 09/21/18 08:47 Dose: 250 mg Ferrous Sulfate (Iron) 325 mg PO DAILY [facility] Stop: 11/17/18 08:59 Last Admin: 09/21/18 08:47 Dose: 325 mg Fish Oil ([place] 3) 1,000 mg PO DAILY [facility] Stop: 11/17/18 08:59 Last Admin: 09/21/18 08:47 Dose: 1,000 mg Lorazepam (Ativan) 0.5 mg PO Q4HR PRN; Protocol PRN Reason: Anxiety Stop: 10/18/18 00:32 Last Admin: 09/22/18 06:59 Dose: 0.5 mg Quetiapine Fumarate (Seroquel) 200 mg PO BID [facility]; Protocol Stop: 11/17/18 08:59 Last Admin: 09/21/18 16:46 Dose: 200 mg Quetiapine Fumarate (Seroquel) 400 mg PO HS [facility]; Protocol Stop: 11/17/18 20:59 Last Admin: 09/21/18 21:21 Dose: 400 mg Zolpidem Tartrate (Ambien) 5 mg PO HS PRN PRN Reason: Insomnia Stop: 11/17/18 00:32 Last Admin: 09/21/18 21:21 Dose: 5 mg General: Alert, Oriented x3, No acute distress HEENT: Atraumatic, EOMI Neck: Supple Cardiovascular: Regular rate, Normal S1, Normal S2 Abdomen: Bowel sounds Extremities: no Clubbing, no Cyanosis, no Edema Assessment/Plan - Assessment Assessment: Psychosis DM ischemic Cardiomyopathy Sick Sinus Syndrome Bipolar Disorder Insomnia Glaucoma Major Depression Schizoaffective Disorder Anemia Atherosclerosis - Plan Plan: [facility] Nutritional Asmnt/Malnutr-PDOC - Dietary Evaluation Malnutrition Findings (Please click <Entered> for more info): Nutritional Asmnt/Malnutrition Start: 09/21/18 19: 19 Text: Status: Complete Freq: Protocol: Document 09/21/18 19:19 LCBRAVOG (Rec: 09/21/18 19:21 [email or web address] [id number]) Nutritional Asmnt/Malnutrition Patient General Information Nutritional Screening Moderate Risk Diagnosis psychosis NOS Pertinent Medical Hx/Surgical Hx ischemic cardiomyopathy, sick sinus syndrome, anxiety, bipolar, depression, psychosis , schizophrenia, DM, OA Subjective Information Pt seen sleeping in bed at time of visit. Per EMR, PO intake 75-100%. Current Diet Order/ Nutrition Support [facility] Pertinent Medications colace, iron, omega 3, seroquel Pertinent Labs / Glucseo 109, alb 3.9 Nutritional Hx/Data Height 1.52 m Height (Calculated Centimeters) 152.4 Current Weight (lbs) 68.039 kg Weight (Calculated Kilograms) 68.0 Weight (Calculated Grams) 94325.9 [place] Body Weight 106 Body Mass Index (BMI) 29.2 Weight Status Overweight GI Symptoms GI Symptoms None Last BM 4/6 Difficult in: None Skin Integrity/Comment: intact Current %PO Good (75-100%) Estimated Nutritional Goals BEE in Kcals: Using Current wt Calories/Kcals/Kg 23-27 Kcals Calculated 4097-8992 Protein: Using Current wt Protein g/k.8 Protein Calculated 54 Fluid: ml 1564-1836ml (1ml/kcal) Nutritional Problem No current Nutrition Prob Problem N./A Malnutrition Alert Is there a minimum of two criteria No selected? Query Text:Check all the applicable criteria. A minimum of two criteria are recommended for diagnosis of either severe or non-severe malnutrition. Malnutrition Related to Morbid Obesity Malnutrition related to morbid obesity No Intervention/Recommendation Comments 1. Continue with [facility] diet as ordered. 2. Monitor PO intake, wt, labs and skin integrity 3. F/U as low risk in 7 days Expected Outcomes/Goals Expected Outcomes/Goals 1. PO intake to meet at least 75% of nutritional needs. 2. Wt stability, skin to remain intact, labs to approach WNL.
[2018-09-22] MEDS: Ferrous Sulfate 325 MG TAB PO SCH (08:57)
[2018-09-22] MEDS: Fish Oil 1,000 MG SGL PO SCH (08:57)
[2018-09-22] MEDS: Aspirin 81mg Chewable Tab PO SCH (08:57)
--- NOTE | 2018-09-23 00:27 | Progress Notes ---
DATE: 09/22/2018 Case was discussed with staff of the patient and reviewed records. The patient continues to be unpredictable, impulsive, confused, easily agitated. He is sleeping better and eating better. He is compliant with the medication with no side effects, no sedation, no nausea, and no extrapyramidal symptoms. His lab work showed low hemoglobin, low hematocrit, and high monocyte, the rest within normal range. Chemistry panel with high blood sugar, low total bilirubin, and low albumin. TSH within normal range. Urinalysis within normal range. Urine drug screen is positive for tricyclic. RPR is nonreactive. We will continue to work with the patient in group therapy, milieu therapy, and adjust the medication as needed. JOB# [id number]
--- NOTE | 2018-09-23 08:10 | General Progress Note ---
Subjective - Review of Systems Service Date: 09/23/18 Subjective: Awake, Alert, no acute distress. VS T 97.4 P66 R20 BP 116/76 Objective - Results Result Diagrams: 09/17/18 20:15 09/17/18 20:15 Recent Labs: Laboratory Last Values WBC 4.8 Th/cmm (4.8-10.8) 09/17/18 20:15 RBC 3.86 Mil/cmm (3.80-5.80) 09/17/18 20:15 Hgb 11.7 gm/dL (12-16) L 09/17/18 20:15 Hct 35.0 % (41.0-60) L 09/17/18 20:15 MCV 90.5 fl (80-99) 09/17/18 20:15 MCH 30.3 pg (27.0-31.0) 09/17/18 20:15 MCHC Differential 33.5 pg (28.0-36.0) 09/17/18 20:15 RDW 12.2 % (11.5-20.0) 09/17/18 20:15 Plt Count 189 Th/cmm (150-400) 09/17/18 20:15 MPV 7.6 fl 09/17/18 20:15 Neutrophils % 49.9 % (40.0-80.0) 09/17/18 20:15 Lymphocytes % 39.0 % (20.0-50.0) 09/17/18 20:15 Monocytes % 10.3 % (2.0-10.0) H 09/17/18 20:15 Eosinophils % 0.7 % (0.0-5.0) 09/17/18 20:15 Basophils % 0.1 % (0.0-2.0) 09/17/18 20:15 Sodium 140 mEq/L (136-145) 09/17/18 20:15 Potassium 4.0 mEq/L (3.5-5.1) 09/17/18 20:15 Chloride 106 mEq/L (98-107) 09/17/18 20:15 Carbon Dioxide 27.3 mEq/L (21.0-31.0) 09/17/18 20:15 Anion Gap 10.7 (7.0-16.0) 09/17/18 20:15 BUN 21 mg/dL (7-25) 09/17/18 20:15 Creatinine 1.1 mg/dL (0.7-1.3) 09/17/18 20:15 Est GFR ( Amer) > 60.0 ml/min (>90) 09/17/18 20:15 Est GFR (Non-Af Amer) > 60.0 ml/min 09/17/18 20:15 BUN/Creatinine Ratio 19.1 09/17/18 20:15 Glucose 109 mg/dL (70-105) H 09/17/18 20:15 Calcium 9.2 mg/dL (8.6-10.3) 09/17/18 20:15 Total Bilirubin 0.2 mg/dL (0.3-1.0) L 09/17/18 20:15 AST 24 U/L (13-39) 09/17/18 20:15 ALT 18 U/L (7-52) 09/17/18 20:15 Alkaline Phosphatase 54 U/L (34-104) 09/17/18 20:15 Total Protein 7.1 gm/dL (6.0-8.3) 09/17/18 20:15 Albumin 3.9 gm/dL (4.2-5.5) L 09/17/18 20:15 Globulin 3.2 gm/dL 09/17/18 20:15 Albumin/Globulin Ratio 1.2 (1.0-1.8) 09/17/18 20:15 Triglycerides 125 mg/dL (<150) 09/17/18 20:15 Cholesterol 180 mg/dL (<200) 09/17/18 20:15 LDL Cholesterol Direct 88 mg/dL (75-193) 09/17/18 20:15 HDL Cholesterol 64 mg/dL (23-92) 09/17/18 20:15 TSH 2.05 uIU/ml (0.34-5.60) 09/17/18 20:15 Urine Source CLEAN C 09/17/18 19:40 Urine Color STRAW 09/17/18 19:40 Urine Clarity CLEAR (CLEAR) 09/17/18 19:40 Urine pH 6.0 (4.6 - 8.0) 09/17/18 19:40 Ur Specific [place] <= 1.005 (1.005-1.030) 09/17/18 19:40 Urine Protein NEGATIVE mg/dL (NEGATIVE) 09/17/18 19:40 Urine Glucose (UA) NEGATIVE mg/dL (NEGATIVE) 09/17/18 19:40 Urine Ketones NEGATIVE mg/dL (NEGATIVE) 09/17/18 19:40 Urine Blood NEGATIVE (NEGATIVE) 09/17/18 19:40 Urine Nitrate NEGATIVE (NEGATIVE) 09/17/18 19:40 Urine Bilirubin NEGATIVE (NEGATIVE) 09/17/18 19:40 Urine Urobilinogen 0.2 E.U./dL (0.2 - 1.0) 09/17/18 19:40 Ur Leukocyte Esterase NEGATIVE (NEGATIVE) 09/17/18 19:40 Salicylates < 25.0 mg/L (30.0-100.0) L 09/17/18 20:15 Urine Opiates Screen NEGATIVE (NEGATIVE) 09/17/18 19:40 Urine Methadone Screen NEGATIVE (NEGATIVE) 09/17/18 19:40 Acetaminophen < 10.0 ug/mL (10.0-30.0) L 09/17/18 20:15 Ur Barbiturates Screen NEGATIVE (NEGATIVE) 09/17/18 19:40 Ur Tricyclics Screen POSITIVE (NEGATIVE) H 09/17/18 19:40 Ur Phencyclidine Scrn NEGATIVE (NEGATIVE) 09/17/18 19:40 Amphetamines Screen NEGATIVE (NEGATIVE) 09/17/18 19:40 U Methamphetamines Scrn NEGATIVE (NEGATIVE) 09/17/18 19:40 U Benzodiazepines Scrn NEGATIVE (NEGATIVE) 09/17/18 19:40 U Cocaine Metab Screen NEGATIVE (NEGATIVE) 09/17/18 19:40 U Cannabinoids Screen NEGATIVE (NEGATIVE) 09/17/18 19:40 Ethyl Alcohol < 10 mg/dL (0-10) 09/17/18 20:15 RPR NONREACTIVE (NONREACTIVE) 09/17/18 20:15 - Physical Exam Vitals and I&O: Vital Signs Temp 97.4 F 09/23/18 06:00 Pulse 66 09/23/18 06:00 Resp 20 09/23/18 06:00 BP 116/76 09/23/18 06:00 Pulse Ox 100 09/23/18 06:00 Intake & Output 09/22/18 09/23/18 09/23/18 18:59 06:59 18:59 Intake Total 900 120 Balance 900 120 Intake: Oral 900 120 Other: # Voids 3 2 # Bowel Movements 1 0 Active Medications: Current Medications Aspirin (Aspirin Chewable) 81 mg PO DAILY [facility] Stop: 11/17/18 08:59 Last Admin: 09/22/18 08:57 Dose: 81 mg Clonazepam (Klonopin) 0.5 mg PO BID [facility]; Protocol Stop: 11/17/18 08:59 Last Admin: 09/22/18 17:33 Dose: 0.5 mg Divalproex Sodium (Depakote Dr) 500 mg PO BID [facility]; Protocol Stop: 11/22/18 08:59 Docusate Sodium (Colace) 250 mg PO QAM [facility] Stop: 11/17/18 08:59 Last Admin: 09/22/18 08:58 Dose: Not Given Ferrous Sulfate (Iron) 325 mg PO DAILY [facility] Stop: 11/17/18 08:59 Last Admin: 09/22/18 08:57 Dose: 325 mg Fish Oil ([place] 3) 1,000 mg PO DAILY [facility] Stop: 11/17/18 08:59 Last Admin: 09/22/18 08:57 Dose: 1,000 mg Lorazepam (Ativan) 0.5 mg PO Q4HR PRN; Protocol PRN Reason: Anxiety Stop: 10/18/18 00:32 Last Admin: 09/22/18 21:17 Dose: 0.5 mg Quetiapine Fumarate (Seroquel) 200 mg PO BID [facility]; Protocol Stop: 11/17/18 08:59 Last Admin: 09/22/18 17:33 Dose: 200 mg Quetiapine Fumarate (Seroquel) 400 mg PO HS [facility]; Protocol Stop: 11/17/18 20:59 Last Admin: 09/22/18 21:16 Dose: 400 mg Zolpidem Tartrate (Ambien) 5 mg PO HS PRN PRN Reason: Insomnia Stop: 11/17/18 00:32 Last Admin: 09/22/18 21:16 Dose: 5 mg General: Alert, Oriented x3, No acute distress HEENT: Atraumatic, EOMI Neck: Supple Cardiovascular: Regular rate, Normal S1, Normal S2 Abdomen: Bowel sounds Extremities: no Clubbing, no Cyanosis, no Edema Assessment/Plan - Assessment Assessment: Psychosis DM ischemic Cardiomyopathy Sick Sinus Syndrome Bipolar Disorder Insomnia Glaucoma Major Depression Schizoaffective Disorder Anemia Atherosclerosis - Plan Plan: continue current treatment Nutritional Asmnt/Malnutr-PDOC - Dietary Evaluation Malnutrition Findings (Please click <Entered> for more info): Nutritional Asmnt/Malnutrition Start: 09/21/18 19: 19 Text: Status: Complete Freq: Protocol: Document 09/21/18 19:19 LCBRAVOG (Rec: 09/21/18 19:21 [id number] [id number]) Nutritional Asmnt/Malnutrition Patient General Information Nutritional Screening Moderate Risk Diagnosis psychosis NOS Pertinent Medical Hx/Surgical Hx ischemic cardiomyopathy, sick sinus syndrome, anxiety, bipolar, depression, psychosis , schizophrenia, DM, OA Subjective Information Pt seen sleeping in bed at time of visit. Per EMR, PO intake 75-100%. Current Diet Order/ Nutrition Support CCHO Pertinent Medications colace, iron, omega 3, seroquel Pertinent Labs 09/17 Glucseo 109, alb 3.9 Nutritional Hx/Data Height 1.52 m Height (Calculated Centimeters) 152.4 Current Weight (lbs) 68.039 kg Weight (Calculated Kilograms) 68.0 Weight (Calculated Grams) 31664.9 [place] Body Weight 106 Body Mass Index (BMI) 29.2 Weight Status Overweight GI Symptoms GI Symptoms None Last BM 4/6 Difficult in: None Skin Integrity/Comment: intact Current %PO Good (75-100%) Estimated Nutritional Goals BEE in Kcals: Using Current wt Calories/Kcals/Kg 23-27 Kcals Calculated 6109-2753 Protein: Using Current wt Protein g/k.8 Protein Calculated 54 Fluid: ml 1564-1836ml (1ml/kcal) Nutritional Problem No current Nutrition Prob Problem N./A Malnutrition Alert Is there a minimum of two criteria No selected? Query Text:Check all the applicable criteria. A minimum of two criteria are recommended for diagnosis of either severe or non-severe malnutrition. Malnutrition Related to Morbid Obesity Malnutrition related to morbid obesity No Intervention/Recommendation Comments [facility]. [facility]. 2. Monitor PO intake, wt, labs and skin integrity 3. F/U as low risk in 7 days Expected Outcomes/Goals Expected Outcomes/Goals 1. PO intake to meet at least 75% of nutritional needs. 2. Wt stability, skin to remain intact, labs to approach WNL.
[2018-09-23] MEDS: Fish Oil 1,000 MG SGL PO SCH (10:00)
[2018-09-23] MEDS: Ferrous Sulfate 325 MG TAB PO SCH (10:00)
[2018-09-23] MEDS: Aspirin 81mg Chewable Tab PO SCH (10:23)
--- NOTE | 2018-09-24 04:48 | Progress Notes ---
DATE: 09/23/2018 PSYCHIATRIC PROGRESS NOTE SUBJECTIVE: Chart reviewed and the patient interviewed. Also, discussed the patient's condition with the staff and reviewed records and labs. The patient is still having episodes of yelling and screaming and is still actively responding to stimuli. The patient also was standing in the middle of the hallway, talking to himself. He also still had severe mood swings and restless. Otherwise, the patient is compliant with taking his medications with no side effects. ASSESSMENT: The patient is still psychotic. TREATMENT PLAN: We will continue to monitor his behavior and his condition closely. Also, we will increase Depakote to 500 mg twice a day and continue Seroquel 200 mg twice a day and 400 mg at bedtime. Also, we will get Depakote blood level and continue to follow up. JOB# [id number]
--- NOTE | 2018-09-24 08:14 | General Progress Note ---
Subjective - Review of Systems Service Date: 09/24/18 Subjective: Awake, Alert, no acute distress. VS T 97.8 P98 R20 BP 123/72 Objective - Results Result Diagrams: 09/17/18 20:15 09/17/18 20:15 Recent Labs: Laboratory Last Values WBC 4.8 Th/cmm (4.8-10.8) 09/17/18 20:15 RBC 3.86 Mil/cmm (3.80-5.80) 09/17/18 20:15 Hgb 11.7 gm/dL (12-16) L 09/17/18 20:15 Hct 35.0 % (41.0-60) L 09/17/18 20:15 MCV 90.5 fl (80-99) 09/17/18 20:15 MCH 30.3 pg (27.0-31.0) 09/17/18 20:15 MCHC Differential 33.5 pg (28.0-36.0) 09/17/18 20:15 RDW 12.2 % (11.5-20.0) 09/17/18 20:15 Plt Count 189 Th/cmm (150-400) 09/17/18 20:15 MPV 7.6 fl 09/17/18 20:15 Neutrophils % 49.9 % (40.0-80.0) 09/17/18 20:15 Lymphocytes % 39.0 % (20.0-50.0) 09/17/18 20:15 Monocytes % 10.3 % (2.0-10.0) H 09/17/18 20:15 Eosinophils % 0.7 % (0.0-5.0) 09/17/18 20:15 Basophils % 0.1 % (0.0-2.0) 09/17/18 20:15 Sodium 140 mEq/L (136-145) 09/17/18 20:15 Potassium 4.0 mEq/L (3.5-5.1) 09/17/18 20:15 Chloride 106 mEq/L (98-107) 09/17/18 20:15 Carbon Dioxide 27.3 mEq/L (21.0-31.0) 09/17/18 20:15 Anion Gap 10.7 (7.0-16.0) 09/17/18 20:15 BUN 21 mg/dL (7-25) 09/17/18 20:15 Creatinine 1.1 mg/dL (0.7-1.3) 09/17/18 20:15 Est GFR ( Amer) > 60.0 ml/min (>90) 09/17/18 20:15 Est GFR (Non-Af Amer) > 60.0 ml/min 09/17/18 20:15 BUN/Creatinine Ratio 19.1 09/17/18 20:15 Glucose 109 mg/dL (70-105) H 09/17/18 20:15 Calcium 9.2 mg/dL (8.6-10.3) 09/17/18 20:15 Total Bilirubin 0.2 mg/dL (0.3-1.0) L 09/17/18 20:15 AST 24 U/L (13-39) 09/17/18 20:15 ALT 18 U/L (7-52) 09/17/18 20:15 Alkaline Phosphatase 54 U/L (34-104) 09/17/18 20:15 Total Protein 7.1 gm/dL (6.0-8.3) 09/17/18 20:15 Albumin 3.9 gm/dL (4.2-5.5) L 09/17/18 20:15 Globulin 3.2 gm/dL 09/17/18 20:15 Albumin/Globulin Ratio 1.2 (1.0-1.8) 09/17/18 20:15 Triglycerides 125 mg/dL (<150) 09/17/18 20:15 Cholesterol 180 mg/dL (<200) 09/17/18 20:15 LDL Cholesterol Direct 88 mg/dL (75-193) 09/17/18 20:15 HDL Cholesterol 64 mg/dL (23-92) 09/17/18 20:15 TSH 2.05 uIU/ml (0.34-5.60) 09/17/18 20:15 Urine Source CLEAN C 09/17/18 19:40 Urine Color STRAW 09/17/18 19:40 Urine Clarity CLEAR (CLEAR) 09/17/18 19:40 Urine pH 6.0 (4.6 - 8.0) 09/17/18 19:40 Ur Specific [place] <= 1.005 (1.005-1.030) 09/17/18 19:40 Urine Protein NEGATIVE mg/dL (NEGATIVE) 09/17/18 19:40 Urine Glucose (UA) NEGATIVE mg/dL (NEGATIVE) 09/17/18 19:40 Urine Ketones NEGATIVE mg/dL (NEGATIVE) 09/17/18 19:40 Urine Blood NEGATIVE (NEGATIVE) 09/17/18 19:40 Urine Nitrate NEGATIVE (NEGATIVE) 09/17/18 19:40 Urine Bilirubin NEGATIVE (NEGATIVE) 09/17/18 19:40 Urine Urobilinogen 0.2 E.U./dL (0.2 - 1.0) 09/17/18 19:40 Ur Leukocyte Esterase NEGATIVE (NEGATIVE) 09/17/18 19:40 Salicylates < 25.0 mg/L (30.0-100.0) L 09/17/18 20:15 Urine Opiates Screen NEGATIVE (NEGATIVE) 09/17/18 19:40 Urine Methadone Screen NEGATIVE (NEGATIVE) 09/17/18 19:40 Acetaminophen < 10.0 ug/mL (10.0-30.0) L 09/17/18 20:15 Ur Barbiturates Screen NEGATIVE (NEGATIVE) 09/17/18 19:40 Valproic Acid < 10.0 ug/mL (50.0-100.0) L 09/23/18 10:40 Ur Tricyclics Screen POSITIVE (NEGATIVE) H 09/17/18 19:40 Ur Phencyclidine Scrn NEGATIVE (NEGATIVE) 09/17/18 19:40 Amphetamines Screen NEGATIVE (NEGATIVE) 09/17/18 19:40 U Methamphetamines Scrn NEGATIVE (NEGATIVE) 09/17/18 19:40 U Benzodiazepines Scrn NEGATIVE (NEGATIVE) 09/17/18 19:40 U Cocaine Metab Screen NEGATIVE (NEGATIVE) 09/17/18 19:40 U Cannabinoids Screen NEGATIVE (NEGATIVE) 09/17/18 19:40 Ethyl Alcohol < 10 mg/dL (0-10) 09/17/18 20:15 RPR NONREACTIVE (NONREACTIVE) 09/17/18 20:15 - Physical Exam Vitals and I&O: Vital Signs Temp 97.8 F 09/24/18 06:14 Pulse 98 09/24/18 06:14 Resp 20 09/24/18 06:14 BP 123/72 09/24/18 06:14 Pulse Ox 97 09/24/18 06:14 Intake & Output 09/23/18 09/24/18 09/24/18 18:59 06:59 18:59 Intake Total 1200 120 Balance 1200 120 Intake: Oral 1200 120 Other: # Voids 3 # Bowel Movements 1 Active Medications: Current Medications Aspirin (Aspirin Chewable) 81 mg PO DAILY [facility] Stop: 11/17/18 08:59 Last Admin: 09/23/18 10:23 Dose: 81 mg Clonazepam (Klonopin) 0.5 mg PO BID [facility]; Protocol Stop: 11/17/18 08:59 Last Admin: 09/23/18 17:03 Dose: 0.5 mg Divalproex Sodium (Depakote Dr) 500 mg PO BID [facility]; Protocol Stop: 11/22/18 08:59 Last Admin: 09/23/18 17:05 Dose: 500 mg Docusate Sodium (Colace) 250 mg PO QAM [facility] Stop: 11/17/18 08:59 Last Admin: 09/23/18 10:00 Dose: 250 mg Ferrous Sulfate (Iron) 325 mg PO DAILY [facility] Stop: 11/17/18 08:59 Last Admin: 09/23/18 10:00 Dose: 325 mg Fish Oil ([place] 3) 1,000 mg PO DAILY [facility] Stop: 11/17/18 08:59 Last Admin: 09/23/18 10:00 Dose: 1,000 mg Lorazepam (Ativan) 0.5 mg PO Q4HR PRN; Protocol PRN Reason: Anxiety Stop: 10/18/18 00:32 Last Admin: 09/22/18 21:17 Dose: 0.5 mg Quetiapine Fumarate (Seroquel) 200 mg PO BID [facility]; Protocol Stop: 11/17/18 08:59 Last Admin: 09/23/18 17:04 Dose: 200 mg Quetiapine Fumarate (Seroquel) 400 mg PO HS [facility]; Protocol Stop: 11/17/18 20:59 Last Admin: 09/23/18 21:20 Dose: 400 mg Zolpidem Tartrate (Ambien) 5 mg PO HS PRN PRN Reason: Insomnia Stop: 11/17/18 00:32 Last Admin: 09/23/18 21:21 Dose: 5 mg General: Alert, Oriented x3, No acute distress HEENT: Atraumatic, EOMI Neck: Supple Cardiovascular: Regular rate, Normal S1, Normal S2 Abdomen: Bowel sounds Extremities: no Clubbing, no Cyanosis, no Edema Assessment/Plan - Assessment Assessment: Psychosis DM ischemic Cardiomyopathy Sick Sinus Syndrome Bipolar Disorder Insomnia Glaucoma Major Depression Schizoaffective Disorder Anemia Atherosclerosis - Plan Plan: continue current treatment Nutritional Asmnt/Malnutr-PDOC - Dietary Evaluation Malnutrition Findings (Please click <Entered> for more info): Nutritional Asmnt/Malnutrition Start: 09/21/18 19: 19 Text: Status: Complete Freq: Protocol: Document 09/21/18 19:19 LCHENG (Rec: 09/21/18 19:21 [email or web address] [id number]) Nutritional Asmnt/Malnutrition Patient General Information Nutritional Screening Moderate Risk Diagnosis psychosis NOS Pertinent Medical Hx/Surgical Hx ischemic cardiomyopathy, sick sinus syndrome, anxiety, bipolar, depression, psychosis , schizophrenia, DM, OA Subjective Information Pt seen sleeping in bed at time of visit. Per EMR, PO intake 75-100%. Current Diet Order/ Nutrition Support CCHO Pertinent Medications colace, iron, omega 3, seroquel Pertinent Labs 4/4 Glucseo 109, alb 3.9 Nutritional Hx/Data Height 1.52 m Height (Calculated Centimeters) 152.4 Current Weight (lbs) 68.039 kg Weight (Calculated Kilograms) 68.0 Weight (Calculated Grams) 41213.9 [place] Body Weight 106 Body Mass Index (BMI) 29.2 Weight Status Overweight GI Symptoms GI Symptoms None Last BM 4/6 Difficult in: None Skin Integrity/Comment: intact Current %PO Good (75-100%) Estimated Nutritional Goals BEE in Kcals: Using Current wt Calories/Kcals/Kg 23-27 Kcals Calculated 4794-7631 Protein: Using Current wt Protein g/k.8 Protein Calculated 54 Fluid: ml 1564-1836ml (1ml/kcal) Nutritional Problem No current Nutrition Prob Problem N./A Malnutrition Alert Is there a minimum of two criteria No selected? Query Text:Check all the applicable criteria. A minimum of two criteria are recommended for diagnosis of either severe or non-severe malnutrition. Malnutrition Related to Morbid Obesity Malnutrition related to morbid obesity No Intervention/Recommendation Comments [facility]. [facility]. 2. Monitor PO intake, wt, labs and skin integrity 3. F/U as low risk in 7 days Expected Outcomes/Goals Expected Outcomes/Goals 1. PO intake to meet at least 75% of nutritional needs. 2. Wt stability, skin to remain intact, labs to approach WNL.
[2018-09-24] MEDS: Aspirin 81mg Chewable Tab PO SCH (09:03)
[2018-09-24] MEDS: Fish Oil 1,000 MG SGL PO SCH (09:04)
[2018-09-24] MEDS: Ferrous Sulfate 325 MG TAB PO SCH (09:04)
--- NOTE | 2018-09-24 21:48 | Progress Notes ---
DATE: SUBJECTIVE: Chart reviewed and the patient interviewed. Also discussed the patient's condition with the staff and reviewed records and labs. The patient is still demanding and is still intrusive to others. Also, still has episodes of yelling and screaming. The patient also during interview is having flat affect and interacting minimally and seems to be responding heavily. Also, still has severe mood swings. The patient also is pacing up and down the hallway on slow moves. Also, personal hygiene is still poor. ASSESSMENT: The patient is still psychotic and agitated. TREATMENT PLAN: We will continue to monitor the patient's behavior and condition closely. Also, Depakote blood level that was done yesterday, came back to be less than 10, below therapeutic level, but Depakote was started and is increased yesterday to 500 mg twice a day. Also, the patient continued to take Seroquel and the Klonopin with no side effects. We will continue same dose and continue working on his behavior and his psychosis and continue to follow up. JOB# [id number]
--- NOTE | 2018-09-25 08:22 | General Progress Note ---
Subjective - Review of Systems Service Date: 09/25/18 Subjective: Awake, Alert, no acute distress. VS T 97.2 P90 R20 BP 112/67 Objective - Results Result Diagrams: 09/17/18 20:15 09/17/18 20:15 Recent Labs: Laboratory Last Values WBC 4.8 Th/cmm (4.8-10.8) 09/17/18 20:15 RBC 3.86 Mil/cmm (3.80-5.80) 09/17/18 20:15 Hgb 11.7 gm/dL (12-16) L 09/17/18 20:15 Hct 35.0 % (41.0-60) L 09/17/18 20:15 MCV 90.5 fl (80-99) 09/17/18 20:15 MCH 30.3 pg (27.0-31.0) 09/17/18 20:15 MCHC Differential 33.5 pg (28.0-36.0) 09/17/18 20:15 RDW 12.2 % (11.5-20.0) 09/17/18 20:15 Plt Count 189 Th/cmm (150-400) 09/17/18 20:15 MPV 7.6 fl 09/17/18 20:15 Neutrophils % 49.9 % (40.0-80.0) 09/17/18 20:15 Lymphocytes % 39.0 % (20.0-50.0) 09/17/18 20:15 Monocytes % 10.3 % (2.0-10.0) H 09/17/18 20:15 Eosinophils % 0.7 % (0.0-5.0) 09/17/18 20:15 Basophils % 0.1 % (0.0-2.0) 09/17/18 20:15 Sodium 140 mEq/L (136-145) 09/17/18 20:15 Potassium 4.0 mEq/L (3.5-5.1) 09/17/18 20:15 Chloride 106 mEq/L (98-107) 09/17/18 20:15 Carbon Dioxide 27.3 mEq/L (21.0-31.0) 09/17/18 20:15 Anion Gap 10.7 (7.0-16.0) 09/17/18 20:15 BUN 21 mg/dL (7-25) 09/17/18 20:15 Creatinine 1.1 mg/dL (0.7-1.3) 09/17/18 20:15 Est GFR ( Amer) > 60.0 ml/min (>90) 09/17/18 20:15 Est GFR (Non-Af Amer) > 60.0 ml/min 09/17/18 20:15 BUN/Creatinine Ratio 19.1 09/17/18 20:15 Glucose 109 mg/dL (70-105) H 09/17/18 20:15 Calcium 9.2 mg/dL (8.6-10.3) 09/17/18 20:15 Total Bilirubin 0.2 mg/dL (0.3-1.0) L 09/17/18 20:15 AST 24 U/L (13-39) 09/17/18 20:15 ALT 18 U/L (7-52) 09/17/18 20:15 Alkaline Phosphatase 54 U/L (34-104) 09/17/18 20:15 Total Protein 7.1 gm/dL (6.0-8.3) 09/17/18 20:15 Albumin 3.9 gm/dL (4.2-5.5) L 09/17/18 20:15 Globulin 3.2 gm/dL 09/17/18 20:15 Albumin/Globulin Ratio 1.2 (1.0-1.8) 09/17/18 20:15 Triglycerides 125 mg/dL (<150) 09/17/18 20:15 Cholesterol 180 mg/dL (<200) 09/17/18 20:15 LDL Cholesterol Direct 88 mg/dL (75-193) 09/17/18 20:15 HDL Cholesterol 64 mg/dL (23-92) 09/17/18 20:15 TSH 2.05 uIU/ml (0.34-5.60) 09/17/18 20:15 Urine Source CLEAN C 09/17/18 19:40 Urine Color STRAW 09/17/18 19:40 Urine Clarity CLEAR (CLEAR) 09/17/18 19:40 Urine pH 6.0 (4.6 - 8.0) 09/17/18 19:40 Ur Specific [place] <= 1.005 (1.005-1.030) 09/17/18 19:40 Urine Protein NEGATIVE mg/dL (NEGATIVE) 09/17/18 19:40 Urine Glucose (UA) NEGATIVE mg/dL (NEGATIVE) 09/17/18 19:40 Urine Ketones NEGATIVE mg/dL (NEGATIVE) 09/17/18 19:40 Urine Blood NEGATIVE (NEGATIVE) 09/17/18 19:40 Urine Nitrate NEGATIVE (NEGATIVE) 09/17/18 19:40 Urine Bilirubin NEGATIVE (NEGATIVE) 09/17/18 19:40 Urine Urobilinogen 0.2 E.U./dL (0.2 - 1.0) 09/17/18 19:40 Ur Leukocyte Esterase NEGATIVE (NEGATIVE) 09/17/18 19:40 Salicylates < 25.0 mg/L (30.0-100.0) L 09/17/18 20:15 Urine Opiates Screen NEGATIVE (NEGATIVE) 09/17/18 19:40 Urine Methadone Screen NEGATIVE (NEGATIVE) 09/17/18 19:40 Acetaminophen < 10.0 ug/mL (10.0-30.0) L 09/17/18 20:15 Ur Barbiturates Screen NEGATIVE (NEGATIVE) 09/17/18 19:40 Valproic Acid < 10.0 ug/mL (50.0-100.0) L 09/23/18 10:40 Ur Tricyclics Screen POSITIVE (NEGATIVE) H 09/17/18 19:40 Ur Phencyclidine Scrn NEGATIVE (NEGATIVE) 09/17/18 19:40 Amphetamines Screen NEGATIVE (NEGATIVE) 09/17/18 19:40 U Methamphetamines Scrn NEGATIVE (NEGATIVE) 09/17/18 19:40 U Benzodiazepines Scrn NEGATIVE (NEGATIVE) 09/17/18 19:40 U Cocaine Metab Screen NEGATIVE (NEGATIVE) 09/17/18 19:40 U Cannabinoids Screen NEGATIVE (NEGATIVE) 09/17/18 19:40 Ethyl Alcohol < 10 mg/dL (0-10) 09/17/18 20:15 RPR NONREACTIVE (NONREACTIVE) 09/17/18 20:15 - Physical Exam Vitals and I&O: Vital Signs Temp 97.8 F 09/25/18 06:16 Pulse 91 09/25/18 06:16 Resp 20 09/25/18 06:16 BP 112/67 09/25/18 06:16 Pulse Ox 96 09/25/18 06:16 Intake & Output 09/24/18 09/25/18 09/25/18 18:59 06:59 18:59 Intake Total 1400 120 Balance 1400 120 Intake: Oral 1400 120 Other: # Voids 4 3 # Bowel Movements 1 Active Medications: Current Medications Aspirin (Aspirin Chewable) 81 mg PO DAILY [facility] Stop: 11/17/18 08:59 Last Admin: 09/24/18 09:03 Dose: 81 mg Clonazepam (Klonopin) 0.5 mg PO BID [facility]; Protocol Stop: 11/17/18 08:59 Last Admin: 09/24/18 16:21 Dose: 0.5 mg Divalproex Sodium (Depakote Dr) 500 mg PO BID [facility]; Protocol Stop: 11/22/18 08:59 Last Admin: 09/24/18 16:20 Dose: 500 mg Docusate Sodium (Colace) 250 mg PO QAM [facility] Stop: 11/17/18 08:59 Last Admin: 09/24/18 09:04 Dose: 250 mg Ferrous Sulfate (Iron) 325 mg PO DAILY [facility] Stop: 11/17/18 08:59 Last Admin: 09/24/18 09:04 Dose: 325 mg Fish Oil ([place] 3) 1,000 mg PO DAILY [facility] Stop: 11/17/18 08:59 Last Admin: 09/24/18 09:04 Dose: 1,000 mg Lorazepam (Ativan) 0.5 mg PO Q4HR PRN; Protocol PRN Reason: Anxiety Stop: 10/18/18 00:32 Last Admin: 09/25/18 01:10 Dose: 0.5 mg Quetiapine Fumarate (Seroquel) 200 mg PO BID [facility]; Protocol Stop: 11/17/18 08:59 Last Admin: 09/24/18 16:21 Dose: 200 mg Quetiapine Fumarate (Seroquel) 400 mg PO HS [facility]; Protocol Stop: 11/17/18 20:59 Last Admin: 09/24/18 20:27 Dose: 400 mg Zolpidem Tartrate (Ambien) 5 mg PO HS PRN PRN Reason: Insomnia Stop: 11/17/18 00:32 Last Admin: 09/24/18 20:27 Dose: 5 mg General: Alert, Oriented x3, No acute distress HEENT: Atraumatic, EOMI Neck: Supple Cardiovascular: Regular rate, Normal S1, Normal S2 Abdomen: Bowel sounds Extremities: no Clubbing, no Cyanosis, no Edema Assessment/Plan - Assessment Assessment: Psychosis DM Ischemic Cardiomyopathy Sick Sinus Syndrome Bipolar Disorder Insomnia Glaucoma Major Depression Schizoaffective Disorder Anemia Atherosclerosis - Plan Plan: continue current treatment Nutritional Asmnt/Malnutr-PDOC - Dietary Evaluation Malnutrition Findings (Please click <Entered> for more info): Nutritional Asmnt/Malnutrition Start: 09/21/18 19: 19 Text: Status: Complete Freq: Protocol: Document 09/21/18 19:19 LCHENG (Rec: 09/21/18 19:21 [id number] [id number]) Nutritional Asmnt/Malnutrition Patient General Information Nutritional Screening Moderate Risk Diagnosis psychosis NOS Pertinent Medical Hx/Surgical Hx ischemic cardiomyopathy, sick sinus syndrome, anxiety, bipolar, depression, psychosis , schizophrenia, DM, OA Subjective Information Pt seen sleeping in bed at time of visit. Per EMR, PO intake 75-100%. Current Diet Order/ Nutrition Support CCHO Pertinent Medications colace, iron, omega 3, seroquel Pertinent Labs 4/4 Glucseo 109, alb 3.9 Nutritional Hx/Data Height 1.52 m Height (Calculated Centimeters) 152.4 Current Weight (lbs) 68.039 kg Weight (Calculated Kilograms) 68.0 Weight (Calculated Grams) 96005.9 [place] Body Weight 106 Body Mass Index (BMI) 29.2 Weight Status Overweight GI Symptoms GI Symptoms None Last BM 4/6 Difficult in: None Skin Integrity/Comment: intact Current %PO Good (75-100%) Estimated Nutritional Goals BEE in Kcals: Using Current wt Calories/Kcals/Kg 23-27 Kcals Calculated 3281-6457 Protein: Using Current wt Protein g/k.8 Protein Calculated 54 Fluid: ml 1564-1836ml (1ml/kcal) Nutritional Problem No current Nutrition Prob Problem N./A Malnutrition Alert Is there a minimum of two criteria No selected? Query Text:Check all the applicable criteria. A minimum of two criteria are recommended for diagnosis of either severe or non-severe malnutrition. Malnutrition Related to Morbid Obesity Malnutrition related to morbid obesity No Intervention/Recommendation Comments 1. Continue with [facility] diet as ordered. 2. Monitor PO intake, wt, labs and skin integrity 3. F/U as low risk in 7 days Expected Outcomes/Goals Expected Outcomes/Goals 1. PO intake to meet at least 75% of nutritional needs. 2. Wt stability, skin to remain intact, labs to approach WNL.
[2018-09-25] MEDS: Fish Oil 1,000 MG SGL PO SCH (09:15)
[2018-09-25] MEDS: Ferrous Sulfate 325 MG TAB PO SCH (09:15)
[2018-09-25] MEDS: Aspirin 81mg Chewable Tab PO SCH (09:15)
--- NOTE | 2018-09-26 05:09 | General Progress Note ---
Subjective - Review of Systems Service Date: 09/26/18 Subjective: Awake, Alert, no acute distress. VS T 97.5 P94 R18 BP 125/83 Objective - Results Result Diagrams: 09/17/18 20:15 09/17/18 20:15 Recent Labs: Laboratory Last Values WBC 4.8 Th/cmm (4.8-10.8) 09/17/18 20:15 RBC 3.86 Mil/cmm (3.80-5.80) 09/17/18 20:15 Hgb 11.7 gm/dL (12-16) L 09/17/18 20:15 Hct 35.0 % (41.0-60) L 09/17/18 20:15 MCV 90.5 fl (80-99) 09/17/18 20:15 MCH 30.3 pg (27.0-31.0) 09/17/18 20:15 MCHC Differential 33.5 pg (28.0-36.0) 09/17/18 20:15 RDW 12.2 % (11.5-20.0) 09/17/18 20:15 Plt Count 189 Th/cmm (150-400) 09/17/18 20:15 MPV 7.6 fl 09/17/18 20:15 Neutrophils % 49.9 % (40.0-80.0) 09/17/18 20:15 Lymphocytes % 39.0 % (20.0-50.0) 09/17/18 20:15 Monocytes % 10.3 % (2.0-10.0) H 09/17/18 20:15 Eosinophils % 0.7 % (0.0-5.0) 09/17/18 20:15 Basophils % 0.1 % (0.0-2.0) 09/17/18 20:15 Sodium 140 mEq/L (136-145) 09/17/18 20:15 Potassium 4.0 mEq/L (3.5-5.1) 09/17/18 20:15 Chloride 106 mEq/L (98-107) 09/17/18 20:15 Carbon Dioxide 27.3 mEq/L (21.0-31.0) 09/17/18 20:15 Anion Gap 10.7 (7.0-16.0) 09/17/18 20:15 BUN 21 mg/dL (7-25) 09/17/18 20:15 Creatinine 1.1 mg/dL (0.7-1.3) 09/17/18 20:15 Est GFR ( Amer) > 60.0 ml/min (>90) 09/17/18 20:15 Est GFR (Non-Af Amer) > 60.0 ml/min 09/17/18 20:15 BUN/Creatinine Ratio 19.1 09/17/18 20:15 Glucose 109 mg/dL (70-105) H 09/17/18 20:15 Calcium 9.2 mg/dL (8.6-10.3) 09/17/18 20:15 Total Bilirubin 0.2 mg/dL (0.3-1.0) L 09/17/18 20:15 AST 24 U/L (13-39) 09/17/18 20:15 ALT 18 U/L (7-52) 09/17/18 20:15 Alkaline Phosphatase 54 U/L (34-104) 09/17/18 20:15 Total Protein 7.1 gm/dL (6.0-8.3) 09/17/18 20:15 Albumin 3.9 gm/dL (4.2-5.5) L 09/17/18 20:15 Globulin 3.2 gm/dL 09/17/18 20:15 Albumin/Globulin Ratio 1.2 (1.0-1.8) 09/17/18 20:15 Triglycerides 125 mg/dL (<150) 09/17/18 20:15 Cholesterol 180 mg/dL (<200) 09/17/18 20:15 LDL Cholesterol Direct 88 mg/dL (75-193) 09/17/18 20:15 HDL Cholesterol 64 mg/dL (23-92) 09/17/18 20:15 TSH 2.05 uIU/ml (0.34-5.60) 09/17/18 20:15 Urine Source CLEAN C 09/17/18 19:40 Urine Color STRAW 09/17/18 19:40 Urine Clarity CLEAR (CLEAR) 09/17/18 19:40 Urine pH 6.0 (4.6 - 8.0) 09/17/18 19:40 Ur Specific [place] <= 1.005 (1.005-1.030) 09/17/18 19:40 Urine Protein NEGATIVE mg/dL (NEGATIVE) 09/17/18 19:40 Urine Glucose (UA) NEGATIVE mg/dL (NEGATIVE) 09/17/18 19:40 Urine Ketones NEGATIVE mg/dL (NEGATIVE) 09/17/18 19:40 Urine Blood NEGATIVE (NEGATIVE) 09/17/18 19:40 Urine Nitrate NEGATIVE (NEGATIVE) 09/17/18 19:40 Urine Bilirubin NEGATIVE (NEGATIVE) 09/17/18 19:40 Urine Urobilinogen 0.2 E.U./dL (0.2 - 1.0) 09/17/18 19:40 Ur Leukocyte Esterase NEGATIVE (NEGATIVE) 09/17/18 19:40 Salicylates < 25.0 mg/L (30.0-100.0) L 09/17/18 20:15 Urine Opiates Screen NEGATIVE (NEGATIVE) 09/17/18 19:40 Urine Methadone Screen NEGATIVE (NEGATIVE) 09/17/18 19:40 Acetaminophen < 10.0 ug/mL (10.0-30.0) L 09/17/18 20:15 Ur Barbiturates Screen NEGATIVE (NEGATIVE) 09/17/18 19:40 Valproic Acid < 10.0 ug/mL (50.0-100.0) L 09/23/18 10:40 Ur Tricyclics Screen POSITIVE (NEGATIVE) H 09/17/18 19:40 Ur Phencyclidine Scrn NEGATIVE (NEGATIVE) 09/17/18 19:40 Amphetamines Screen NEGATIVE (NEGATIVE) 09/17/18 19:40 U Methamphetamines Scrn NEGATIVE (NEGATIVE) 09/17/18 19:40 U Benzodiazepines Scrn NEGATIVE (NEGATIVE) 09/17/18 19:40 U Cocaine Metab Screen NEGATIVE (NEGATIVE) 09/17/18 19:40 U Cannabinoids Screen NEGATIVE (NEGATIVE) 09/17/18 19:40 Ethyl Alcohol < 10 mg/dL (0-10) 09/17/18 20:15 RPR NONREACTIVE (NONREACTIVE) 09/17/18 20:15 - Physical Exam Vitals and I&O: Vital Signs Temp 97.5 F 09/25/18 20:23 Pulse 94 09/25/18 20:23 Resp 18 09/25/18 20:23 BP 125/83 09/25/18 20:23 Pulse Ox 100 09/25/18 20:23 Intake & Output 09/25/18 09/25/18 09/26/18 06:59 18:59 06:59 Intake Total 120 900 240 Balance 120 900 240 Intake: Oral 120 900 240 Other: # Voids 3 3 2 # Bowel Movements 1 Active Medications: Current Medications Aspirin (Aspirin Chewable) 81 mg PO DAILY [facility] Stop: 11/17/18 08:59 Last Admin: 09/25/18 09:15 Dose: 81 mg Divalproex Sodium (Depakote Dr) 500 mg PO BID [facility]; Protocol Stop: 11/22/18 08:59 Last Admin: 09/25/18 16:30 Dose: 500 mg Docusate Sodium (Colace) 250 mg PO QAM [facility] Stop: 11/17/18 08:59 Last Admin: 09/25/18 09:16 Dose: 250 mg Ferrous Sulfate (Iron) 325 mg PO DAILY [facility] Stop: 11/17/18 08:59 Last Admin: 09/25/18 09:15 Dose: 325 mg Fish Oil ([place] 3) 1,000 mg PO DAILY [facility] Stop: 11/17/18 08:59 Last Admin: 09/25/18 09:15 Dose: 1,000 mg Lorazepam (Ativan) 0.5 mg PO Q4HR PRN; Protocol PRN Reason: Anxiety Stop: 10/18/18 00:32 Last Admin: 09/25/18 01:10 Dose: 0.5 mg Quetiapine Fumarate (Seroquel) 200 mg PO BID [facility]; Protocol Stop: 11/17/18 08:59 Last Admin: 09/25/18 16:30 Dose: 200 mg Quetiapine Fumarate (Seroquel) 400 mg PO HS [facility]; Protocol Stop: 11/17/18 20:59 Last Admin: 09/25/18 21:21 Dose: 400 mg Zolpidem Tartrate (Ambien) 5 mg PO HS PRN PRN Reason: Insomnia Stop: 11/17/18 00:32 Last Admin: 09/25/18 21:21 Dose: 5 mg General: Alert, Oriented x3, No acute distress HEENT: Atraumatic, EOMI Neck: Supple Cardiovascular: Regular rate, Normal S1, Normal S2 Abdomen: Bowel sounds Extremities: no Clubbing, no Cyanosis, no Edema Assessment/Plan - Assessment Assessment: Psychosis DM Ischemic Cardiomyopathy Sick Sinus Syndrome Bipolar Disorder Insomnia Glaucoma Major Depression Schizoaffective Disorder Anemia Atherosclerosis - Plan Plan: continue current treatment Nutritional Asmnt/Malnutr-PDOC - Dietary Evaluation Malnutrition Findings (Please click <Entered> for more info): Nutritional Asmnt/Malnutrition Start: 09/21/18 19: 19 Text: Status: Complete Freq: Protocol: Document 09/21/18 19:19 LCBRAVOG (Rec: 09/21/18 19:21 [email or web address] [id number]) Nutritional Asmnt/Malnutrition Patient General Information Nutritional Screening Moderate Risk Diagnosis psychosis NOS Pertinent Medical Hx/Surgical Hx ischemic cardiomyopathy, sick sinus syndrome, anxiety, bipolar, depression, psychosis , schizophrenia, DM, OA Subjective Information Pt seen sleeping in bed at time of visit. Per EMR, PO intake 75-100%. Current Diet Order/ Nutrition Support CCHO Pertinent Medications colace, iron, omega 3, seroquel Pertinent Labs 09/17 Glucseo 109, alb 3.9 Nutritional Hx/Data Height 1.52 m Height (Calculated Centimeters) 152.4 Current Weight (lbs) 68.039 kg Weight (Calculated Kilograms) 68.0 Weight (Calculated Grams) 55491.9 [place] Body Weight 106 Body Mass Index (BMI) 29.2 Weight Status Overweight GI Symptoms GI Symptoms None Last BM 4/6 Difficult in: None Skin Integrity/Comment: intact Current %PO Good (75-100%) Estimated Nutritional Goals BEE in Kcals: Using Current wt Calories/Kcals/Kg 23-27 Kcals Calculated 5928-6243 Protein: Using Current wt Protein g/k.8 Protein Calculated 54 Fluid: ml 1564-1836ml (1ml/kcal) Nutritional Problem No current Nutrition Prob Problem N./A Malnutrition Alert Is there a minimum of two criteria No selected? Query Text:Check all the applicable criteria. A minimum of two criteria are recommended for diagnosis of either severe or non-severe malnutrition. Malnutrition Related to Morbid Obesity Malnutrition related to morbid obesity No Intervention/Recommendation Comments [facility]. [facility]. 2. Monitor PO intake, wt, labs and skin integrity 3. F/U as low risk in 7 days Expected Outcomes/Goals Expected Outcomes/Goals 1. PO intake to meet at least 75% of nutritional needs. 2. Wt stability, skin to remain intact, labs to approach WNL.
[2018-09-26] MEDS: Ferrous Sulfate 325 MG TAB PO SCH (08:52)
[2018-09-26] MEDS: Fish Oil 1,000 MG SGL PO SCH (08:52)
[2018-09-26] MEDS: Aspirin 81mg Chewable Tab PO SCH (08:52)
--- NOTE | 2018-09-26 13:21 | Progress Notes ---
DATE: 09/25/2018 SUBJECTIVE: Chart reviewed and the patient interviewed. Also, discussed the patient's condition with the staff and reviewed records and labs. The patient continued to be easily irritable and easily agitated. The patient also is still actively hallucinating and talking to himself. He also is still actively responding to stimuli. The patient also still pacing up and down the unit aimlessly. Otherwise, the patient is compliant with taking his medications with no side effect of medications. ASSESSMENT: The patient is still agitated and still psychotic. TREATMENT PLAN: Continue to monitor behavior and condition closely. Also, continue adjusting psychotropic medications and work on behavioral modification. JOB# [id number]
--- NOTE | 2018-09-26 23:03 | Progress Notes ---
DATE: 09/26/[address] Crawley. IDENTIFYING DATA: A 63-year-old male brought in from [facility], brought in here after presenting aggressive and agitated and threatening staff members. Medication reconciliation reviewed. She is currently on Ativan as needed, Seroquel 200 mg p.o. b.i.d. and also 400 mg at night and a total of 800 mg. Today on [id number] evaluation, the patient denies any complications or side effects to medication, extremely guarded, minimizing disengaged in the interview, and does not participate in interview. Overnight, the patient observed to be irritable, disorganized thought process. No complications. ASSESSMENT AND PLAN: History of schizophrenia. We will continue with the recent adjustments of medications and targeting ongoing psychotic symptoms. JOB# [id number]
--- NOTE | 2018-09-27 05:56 | General Progress Note ---
Subjective - Review of Systems Service Date: 09/27/18 Subjective: Awake, Alert, no acute distress. VS T 97.6 P102 R20 BP 113/75 Objective - Results Result Diagrams: 09/17/18 20:15 09/17/18 20:15 Recent Labs: Laboratory Last Values WBC 4.8 Th/cmm (4.8-10.8) 09/17/18 20:15 RBC 3.86 Mil/cmm (3.80-5.80) 09/17/18 20:15 Hgb 11.7 gm/dL (12-16) L 09/17/18 20:15 Hct 35.0 % (41.0-60) L 09/17/18 20:15 MCV 90.5 fl (80-99) 09/17/18 20:15 MCH 30.3 pg (27.0-31.0) 09/17/18 20:15 MCHC Differential 33.5 pg (28.0-36.0) 09/17/18 20:15 RDW 12.2 % (11.5-20.0) 09/17/18 20:15 Plt Count 189 Th/cmm (150-400) 09/17/18 20:15 MPV 7.6 fl 09/17/18 20:15 Neutrophils % 49.9 % (40.0-80.0) 09/17/18 20:15 Lymphocytes % 39.0 % (20.0-50.0) 09/17/18 20:15 Monocytes % 10.3 % (2.0-10.0) H 09/17/18 20:15 Eosinophils % 0.7 % (0.0-5.0) 09/17/18 20:15 Basophils % 0.1 % (0.0-2.0) 09/17/18 20:15 Sodium 140 mEq/L (136-145) 09/17/18 20:15 Potassium 4.0 mEq/L (3.5-5.1) 09/17/18 20:15 Chloride 106 mEq/L (98-107) 09/17/18 20:15 Carbon Dioxide 27.3 mEq/L (21.0-31.0) 09/17/18 20:15 Anion Gap 10.7 (7.0-16.0) 09/17/18 20:15 BUN 21 mg/dL (7-25) 09/17/18 20:15 Creatinine 1.1 mg/dL (0.7-1.3) 09/17/18 20:15 Est GFR ( Amer) > 60.0 ml/min (>90) 09/17/18 20:15 Est GFR (Non-Af Amer) > 60.0 ml/min 09/17/18 20:15 BUN/Creatinine Ratio 19.1 09/17/18 20:15 Glucose 109 mg/dL (70-105) H 09/17/18 20:15 Calcium 9.2 mg/dL (8.6-10.3) 09/17/18 20:15 Total Bilirubin 0.2 mg/dL (0.3-1.0) L 09/17/18 20:15 AST 24 U/L (13-39) 09/17/18 20:15 ALT 18 U/L (7-52) 09/17/18 20:15 Alkaline Phosphatase 54 U/L (34-104) 09/17/18 20:15 Total Protein 7.1 gm/dL (6.0-8.3) 09/17/18 20:15 Albumin 3.9 gm/dL (4.2-5.5) L 09/17/18 20:15 Globulin 3.2 gm/dL 09/17/18 20:15 Albumin/Globulin Ratio 1.2 (1.0-1.8) 09/17/18 20:15 Triglycerides 125 mg/dL (<150) 09/17/18 20:15 Cholesterol 180 mg/dL (<200) 09/17/18 20:15 LDL Cholesterol Direct 88 mg/dL (75-193) 09/17/18 20:15 HDL Cholesterol 64 mg/dL (23-92) 09/17/18 20:15 TSH 2.05 uIU/ml (0.34-5.60) 09/17/18 20:15 Urine Source CLEAN C 09/17/18 19:40 Urine Color STRAW 09/17/18 19:40 Urine Clarity CLEAR (CLEAR) 09/17/18 19:40 Urine pH 6.0 (4.6 - 8.0) 09/17/18 19:40 Ur Specific [place] <= 1.005 (1.005-1.030) 09/17/18 19:40 Urine Protein NEGATIVE mg/dL (NEGATIVE) 09/17/18 19:40 Urine Glucose (UA) NEGATIVE mg/dL (NEGATIVE) 09/17/18 19:40 Urine Ketones NEGATIVE mg/dL (NEGATIVE) 09/17/18 19:40 Urine Blood NEGATIVE (NEGATIVE) 09/17/18 19:40 Urine Nitrate NEGATIVE (NEGATIVE) 09/17/18 19:40 Urine Bilirubin NEGATIVE (NEGATIVE) 09/17/18 19:40 Urine Urobilinogen 0.2 E.U./dL (0.2 - 1.0) 09/17/18 19:40 Ur Leukocyte Esterase NEGATIVE (NEGATIVE) 09/17/18 19:40 Salicylates < 25.0 mg/L (30.0-100.0) L 09/17/18 20:15 Urine Opiates Screen NEGATIVE (NEGATIVE) 09/17/18 19:40 Urine Methadone Screen NEGATIVE (NEGATIVE) 09/17/18 19:40 Acetaminophen < 10.0 ug/mL (10.0-30.0) L 09/17/18 20:15 Ur Barbiturates Screen NEGATIVE (NEGATIVE) 09/17/18 19:40 Valproic Acid < 10.0 ug/mL (50.0-100.0) L 09/23/18 10:40 Ur Tricyclics Screen POSITIVE (NEGATIVE) H 09/17/18 19:40 Ur Phencyclidine Scrn NEGATIVE (NEGATIVE) 09/17/18 19:40 Amphetamines Screen NEGATIVE (NEGATIVE) 09/17/18 19:40 U Methamphetamines Scrn NEGATIVE (NEGATIVE) 09/17/18 19:40 U Benzodiazepines Scrn NEGATIVE (NEGATIVE) 09/17/18 19:40 U Cocaine Metab Screen NEGATIVE (NEGATIVE) 09/17/18 19:40 U Cannabinoids Screen NEGATIVE (NEGATIVE) 09/17/18 19:40 Ethyl Alcohol < 10 mg/dL (0-10) 09/17/18 20:15 RPR NONREACTIVE (NONREACTIVE) 09/17/18 20:15 - Physical Exam Vitals and I&O: Vital Signs Temp 97.6 F 09/27/18 05:48 Pulse 102 09/27/18 05:48 Resp 20 09/27/18 05:48 BP 113/75 09/27/18 05:48 Pulse Ox 96 09/27/18 05:48 Intake & Output 09/26/18 09/26/18 09/27/18 06:59 18:59 06:59 Intake Total 480 1000 720 Balance 480 1000 720 Intake: Oral 480 1000 720 Other: # Voids 2 4 2 # Bowel Movements 1 Active Medications: Current Medications Aspirin (Aspirin Chewable) 81 mg PO DAILY [facility] Stop: 11/17/18 08:59 Last Admin: 09/26/18 08:52 Dose: 81 mg Divalproex Sodium (Depakote Dr) 500 mg PO BID [facility]; Protocol Stop: 11/22/18 08:59 Last Admin: 09/26/18 16:23 Dose: 500 mg Docusate Sodium (Colace) 250 mg PO QAM [facility] Stop: 11/17/18 08:59 Last Admin: 09/26/18 08:52 Dose: 250 mg Ferrous Sulfate (Iron) 325 mg PO DAILY [facility] Stop: 11/17/18 08:59 Last Admin: 09/26/18 08:52 Dose: 325 mg Fish Oil ([place] 3) 1,000 mg PO DAILY [facility] Stop: 11/17/18 08:59 Last Admin: 09/26/18 08:52 Dose: 1,000 mg Lorazepam (Ativan) 0.5 mg PO Q4HR PRN; Protocol PRN Reason: Anxiety Stop: 10/18/18 00:32 Last Admin: 09/25/18 01:10 Dose: 0.5 mg Quetiapine Fumarate (Seroquel) 200 mg PO BID [facility]; Protocol Stop: 11/17/18 08:59 Last Admin: 09/26/18 16:23 Dose: 200 mg Quetiapine Fumarate (Seroquel) 400 mg PO HS [facility]; Protocol Stop: 11/17/18 20:59 Last Admin: 09/26/18 20:11 Dose: 400 mg Zolpidem Tartrate (Ambien) 5 mg PO HS PRN PRN Reason: Insomnia Stop: 11/17/18 00:32 Last Admin: 09/25/18 21:21 Dose: 5 mg General: Alert, Oriented x3, No acute distress HEENT: Atraumatic, EOMI Neck: Supple Cardiovascular: Regular rate, Normal S1, Normal S2 Abdomen: Bowel sounds Extremities: no Clubbing, no Cyanosis, no Edema Assessment/Plan - Assessment Assessment: Psychosis DM Ischemic Cardiomyopathy Sick Sinus Syndrome Bipolar Disorder Insomnia Glaucoma Major Depression Schizoaffective Disorder Anemia Atherosclerosis - Plan Plan: continue current treatment Nutritional Asmnt/Malnutr-PDOC - Dietary Evaluation Malnutrition Findings (Please click <Entered> for more info): Nutritional Asmnt/Malnutrition Start: 09/21/18 19: 19 Text: Status: Complete Freq: Protocol: Document 09/21/18 19:19 LCBRAVOG (Rec: 09/21/18 19:21 [id number] [id number]) Nutritional Asmnt/Malnutrition Patient General Information Nutritional Screening Moderate Risk Diagnosis psychosis NOS Pertinent Medical Hx/Surgical Hx ischemic cardiomyopathy, sick sinus syndrome, anxiety, bipolar, depression, psychosis , schizophrenia, DM, OA Subjective Information Pt seen sleeping in bed at time of visit. Per EMR, PO intake 75-100%. Current Diet Order/ Nutrition Support CCHO Pertinent Medications colace, iron, omega 3, seroquel Pertinent Labs 09/17 Glucseo 109, alb 3.9 Nutritional Hx/Data Height 1.52 m Height (Calculated Centimeters) 152.4 Current Weight (lbs) 68.039 kg Weight (Calculated Kilograms) 68.0 Weight (Calculated Grams) 80226.9 [place] Body Weight 106 Body Mass Index (BMI) 29.2 Weight Status Overweight GI Symptoms GI Symptoms None Last BM 4/6 Difficult in: None Skin Integrity/Comment: intact Current %PO Good (75-100%) Estimated Nutritional Goals BEE in Kcals: Using Current wt Calories/Kcals/Kg 23-27 Kcals Calculated 4858-8927 Protein: Using Current wt Protein g/k.8 Protein Calculated 54 Fluid: ml 1564-1836ml (1ml/kcal) Nutritional Problem No current Nutrition Prob Problem N./A Malnutrition Alert Is there a minimum of two criteria No selected? Query Text:Check all the applicable criteria. A minimum of two criteria are recommended for diagnosis of either severe or non-severe malnutrition. Malnutrition Related to Morbid Obesity Malnutrition related to morbid obesity No Intervention/Recommendation Comments [facility]. [facility] 2. Monitor PO intake, wt, labs and skin integrity 3. F/U as low risk in 7 days Expected Outcomes/Goals Expected Outcomes/Goals 1. PO intake to meet at least 75% of nutritional needs. 2. Wt stability, skin to remain intact, labs to approach WNL.
[2018-09-27] MEDS: Aspirin 81mg Chewable Tab PO SCH (08:31)
[2018-09-27] MEDS: Ferrous Sulfate 325 MG TAB PO SCH (08:32)
[2018-09-27] MEDS: Fish Oil 1,000 MG SGL PO SCH (08:32)
--- NOTE | 2018-09-27 23:32 | Progress Notes ---
DATE: 09/27/2018 SUBJECTIVE: The patient was seen and evaluated. The patient's chart reviewed. Covering for Dr. Crawley. The patient reports no complications on the Seroquel at 800 mg. The patient denies any overt sedation. He is slightly guarded, withdrawn and disengaged in the interview. MENTAL STATUS EXAMINATION: Disorganized thought process. ASSESSMENT AND PLAN: History of schizophrenia with the patient's disorganized thought process, tolerating the medication without complication. We will continue monitoring, evaluating as the medication continued to be in steady state. We will continue with primary psychiatrist's treatment plan and goals. JOB# [id number]
--- NOTE | 2018-09-28 08:29 | General Progress Note ---
Subjective - Review of Systems Service Date: 09/28/18 Subjective: Awake, Alert, no acute distress. VS T 97.5 P83 R19 BP 126/73 Objective - Results Result Diagrams: 09/17/18 20:15 09/17/18 20:15 Recent Labs: Laboratory Last Values WBC 4.8 Th/cmm (4.8-10.8) 09/17/18 20:15 RBC 3.86 Mil/cmm (3.80-5.80) 09/17/18 20:15 Hgb 11.7 gm/dL (12-16) L 09/17/18 20:15 Hct 35.0 % (41.0-60) L 09/17/18 20:15 MCV 90.5 fl (80-99) 09/17/18 20:15 MCH 30.3 pg (27.0-31.0) 09/17/18 20:15 MCHC Differential 33.5 pg (28.0-36.0) 09/17/18 20:15 RDW 12.2 % (11.5-20.0) 09/17/18 20:15 Plt Count 189 Th/cmm (150-400) 09/17/18 20:15 MPV 7.6 fl 09/17/18 20:15 Neutrophils % 49.9 % (40.0-80.0) 09/17/18 20:15 Lymphocytes % 39.0 % (20.0-50.0) 09/17/18 20:15 Monocytes % 10.3 % (2.0-10.0) H 09/17/18 20:15 Eosinophils % 0.7 % (0.0-5.0) 09/17/18 20:15 Basophils % 0.1 % (0.0-2.0) 09/17/18 20:15 Sodium 140 mEq/L (136-145) 09/17/18 20:15 Potassium 4.0 mEq/L (3.5-5.1) 09/17/18 20:15 Chloride 106 mEq/L (98-107) 09/17/18 20:15 Carbon Dioxide 27.3 mEq/L (21.0-31.0) 09/17/18 20:15 Anion Gap 10.7 (7.0-16.0) 09/17/18 20:15 BUN 21 mg/dL (7-25) 09/17/18 20:15 Creatinine 1.1 mg/dL (0.7-1.3) 09/17/18 20:15 Est GFR ( Amer) > 60.0 ml/min (>90) 09/17/18 20:15 Est GFR (Non-Af Amer) > 60.0 ml/min 09/17/18 20:15 BUN/Creatinine Ratio 19.1 09/17/18 20:15 Glucose 109 mg/dL (70-105) H 09/17/18 20:15 Calcium 9.2 mg/dL (8.6-10.3) 09/17/18 20:15 Total Bilirubin 0.2 mg/dL (0.3-1.0) L 09/17/18 20:15 AST 24 U/L (13-39) 09/17/18 20:15 ALT 18 U/L (7-52) 09/17/18 20:15 Alkaline Phosphatase 54 U/L (34-104) 09/17/18 20:15 Total Protein 7.1 gm/dL (6.0-8.3) 09/17/18 20:15 Albumin 3.9 gm/dL (4.2-5.5) L 09/17/18 20:15 Globulin 3.2 gm/dL 09/17/18 20:15 Albumin/Globulin Ratio 1.2 (1.0-1.8) 09/17/18 20:15 Triglycerides 125 mg/dL (<150) 09/17/18 20:15 Cholesterol 180 mg/dL (<200) 09/17/18 20:15 LDL Cholesterol Direct 88 mg/dL (75-193) 09/17/18 20:15 HDL Cholesterol 64 mg/dL (23-92) 09/17/18 20:15 TSH 2.05 uIU/ml (0.34-5.60) 09/17/18 20:15 Urine Source CLEAN C 09/17/18 19:40 Urine Color STRAW 09/17/18 19:40 Urine Clarity CLEAR (CLEAR) 09/17/18 19:40 Urine pH 6.0 (4.6 - 8.0) 09/17/18 19:40 Ur Specific [place] <= 1.005 (1.005-1.030) 09/17/18 19:40 Urine Protein NEGATIVE mg/dL (NEGATIVE) 09/17/18 19:40 Urine Glucose (UA) NEGATIVE mg/dL (NEGATIVE) 09/17/18 19:40 Urine Ketones NEGATIVE mg/dL (NEGATIVE) 09/17/18 19:40 Urine Blood NEGATIVE (NEGATIVE) 09/17/18 19:40 Urine Nitrate NEGATIVE (NEGATIVE) 09/17/18 19:40 Urine Bilirubin NEGATIVE (NEGATIVE) 09/17/18 19:40 Urine Urobilinogen 0.2 E.U./dL (0.2 - 1.0) 09/17/18 19:40 Ur Leukocyte Esterase NEGATIVE (NEGATIVE) 09/17/18 19:40 Salicylates < 25.0 mg/L (30.0-100.0) L 09/17/18 20:15 Urine Opiates Screen NEGATIVE (NEGATIVE) 09/17/18 19:40 Urine Methadone Screen NEGATIVE (NEGATIVE) 09/17/18 19:40 Acetaminophen < 10.0 ug/mL (10.0-30.0) L 09/17/18 20:15 Ur Barbiturates Screen NEGATIVE (NEGATIVE) 09/17/18 19:40 Valproic Acid < 10.0 ug/mL (50.0-100.0) L 09/23/18 10:40 Ur Tricyclics Screen POSITIVE (NEGATIVE) H 09/17/18 19:40 Ur Phencyclidine Scrn NEGATIVE (NEGATIVE) 09/17/18 19:40 Amphetamines Screen NEGATIVE (NEGATIVE) 09/17/18 19:40 U Methamphetamines Scrn NEGATIVE (NEGATIVE) 09/17/18 19:40 U Benzodiazepines Scrn NEGATIVE (NEGATIVE) 09/17/18 19:40 U Cocaine Metab Screen NEGATIVE (NEGATIVE) 09/17/18 19:40 U Cannabinoids Screen NEGATIVE (NEGATIVE) 09/17/18 19:40 Ethyl Alcohol < 10 mg/dL (0-10) 09/17/18 20:15 RPR NONREACTIVE (NONREACTIVE) 09/17/18 20:15 - Physical Exam Vitals and I&O: Vital Signs Temp 97.5 F 09/28/18 06:01 Pulse 83 09/28/18 06:01 Resp 19 09/28/18 06:01 BP 126/73 09/28/18 06:01 Pulse Ox 97 09/28/18 06:01 Intake & Output 09/27/18 09/28/18 09/28/18 18:59 06:59 18:59 Intake Total 1200 660 Balance 1200 660 Intake: Oral 1200 660 Other: # Voids 4 2 # Bowel Movements 1 1 Active Medications: Current Medications Aspirin (Aspirin Chewable) 81 mg PO DAILY [facility] Stop: 11/17/18 08:59 Last Admin: 09/27/18 08:31 Dose: 81 mg Clonazepam (Klonopin) 1 mg PO BID [facility]; Protocol Stop: 11/27/18 08:59 Divalproex Sodium (Depakote Dr) 500 mg PO BID [facility]; Protocol Stop: 11/22/18 08:59 Last Admin: 09/27/18 16:18 Dose: 500 mg [facility]ocusate [facility] ([facility]) [facility] Stop: 11/17/18 08:59 Last Admin: 09/27/18 08:31 Dose: 250 mg Ferrous Sulfate (Iron) 325 mg PO DAILY [facility] Stop: 11/17/18 08:59 Last Admin: 09/27/18 08:32 Dose: 325 mg Fish Oil ([place] 3) 1,000 mg PO DAILY [facility] Stop: 11/17/18 08:59 Last Admin: 09/27/18 08:32 Dose: 1,000 mg Lorazepam (Ativan) 0.5 mg PO Q4HR PRN; Protocol PRN Reason: Anxiety Stop: 10/18/18 00:32 Last Admin: 09/28/18 02:55 Dose: 0.5 mg Quetiapine Fumarate (Seroquel) 200 mg PO BID [facility]; Protocol Stop: 11/17/18 08:59 Last Admin: 09/27/18 16:18 Dose: 200 mg Quetiapine Fumarate (Seroquel) 400 mg PO HS [facility]; Protocol Stop: 11/17/18 20:59 Last Admin: 09/27/18 20:18 Dose: 400 mg Zolpidem Tartrate (Ambien) 5 mg PO HS PRN PRN Reason: Insomnia Stop: 11/17/18 00:32 Last Admin: 09/27/18 20:18 Dose: 5 mg General: Alert, Oriented x3, No acute distress HEENT: Atraumatic, EOMI Neck: Supple Cardiovascular: Regular rate, Normal S1, Normal S2 Abdomen: Bowel sounds Extremities: no Clubbing, no Cyanosis, no Edema Assessment/Plan - Assessment Assessment: Psychosis DM Ischemic Cardiomyopathy Sick Sinus Syndrome Bipolar Disorder Insomnia Glaucoma Major Depression Schizoaffective Disorder Anemia Atherosclerosis - Plan Plan: continue current treatment Nutritional Asmnt/Malnutr-PDOC - Dietary Evaluation Malnutrition Findings (Please click <Entered> for more info): Nutritional Asmnt/Malnutrition Start: 09/21/18 19: 19 Text: Status: Complete Freq: Protocol: Document 09/21/18 19:19 SANJANA (Rec: 09/21/18 19:21 MCKENNAVANDA [id number]) Nutritional Asmnt/Malnutrition Patient General Information Nutritional Screening Moderate Risk Diagnosis psychosis NOS Pertinent Medical Hx/Surgical Hx ischemic cardiomyopathy, sick sinus syndrome, anxiety, bipolar, depression, psychosis , schizophrenia, DM, OA Subjective Information Pt seen sleeping in bed at time of visit. Per EMR, PO intake 75-100%. Current Diet Order/ Nutrition Support [facility] Pertinent Medications colace, iron, omega 3, seroquel Pertinent Labs 4/4 Glucseo 109, alb 3.9 Nutritional Hx/Data Height 1.52 m Height (Calculated Centimeters) 152.4 Current Weight (lbs) 68.039 kg Weight (Calculated Kilograms) 68.0 Weight (Calculated Grams) 35005.9 [place] Body Weight 106 Body Mass Index (BMI) 29.2 Weight Status Overweight GI Symptoms GI Symptoms None Last BM 4/6 Difficult in: None Skin Integrity/Comment: intact Current %PO Good (75-100%) Estimated Nutritional Goals BEE in Kcals: Using Current wt Calories/Kcals/Kg 23-27 Kcals Calculated 7584-3941 Protein: Using Current wt Protein g/k.8 Protein Calculated 54 Fluid: ml 1564-1836ml (1ml/kcal) Nutritional Problem No current Nutrition Prob Problem N./A Malnutrition Alert Is there a minimum of two criteria No selected? Query Text:Check all the applicable criteria. A minimum of two criteria are recommended for diagnosis of either severe or non-severe malnutrition. Malnutrition Related to Morbid Obesity Malnutrition related to morbid obesity No Intervention/Recommendation Comments 1. [facility] as ordered. 2. Monitor PO intake, wt, labs and skin integrity 3. F/U as low risk in 7 days Expected Outcomes/Goals Expected Outcomes/Goals 1. PO intake to meet at least 75% of nutritional needs. 2. Wt stability, skin to remain intact, labs to approach WNL.
[2018-09-28] MEDS: Aspirin 81mg Chewable Tab PO SCH (09:44)
[2018-09-28] MEDS: Ferrous Sulfate 325 MG TAB PO SCH (09:44)
[2018-09-28] MEDS: Fish Oil 1,000 MG SGL PO SCH (09:44)
--- NOTE | 2018-09-29 01:00 | Progress Notes ---
DATE: 09/28/2018 SUBJECTIVE: Chart reviewed and the patient interviewed. Also discussed the patient's condition with the staff and reviewed records and labs. The patient remains severely aggressive. Also, during my interview, the patient was out of top or shirt and was going with his pants only and the flexing his muscles to the nurses and to other patients. He is easily irritable and easily agitated, and the patient also is still aggressive and needs lots of redirections. The patient also is still careless. On the other hand, he continued to comply with taking his medications with no side effects. ASSESSMENT: The patient is still aggressive and psychotic. TREATMENT PLAN: Continue to monitor behavior closely. Also, we will add Klonopin in a dose of 1 mg twice a day. Also, we will get Depakote blood level and also will work on behavior modification and his poor impulse control. JOB# [id number]
--- NOTE | 2018-09-29 07:27 | Discharge Summary ---
DATE OF DISCHARGE: 09/29/2018 PATIENT'S AGE: 63. SEX: Male. PHYSICIAN: Dr. Crawley. FINAL DIAGNOSIS: PRIMARY DIAGNOSIS: Bipolar disorder, manic episode, severe, with psychotic features. MEDICAL DIAGNOSES: Arthritis. Diabetes mellitus. REASON FOR HOSPITALIZATION: The patient was admitted to the hospital from [facility] because of increased agitation and mood swings and aggressive behavior with difficulty following directions. HOSPITAL COURSE: The patient continues to exhibit manic behavior. The patient was given Depakote in a dose of 500 mg twice a day and Seroquel 200 mg twice a day and 400 mg at bedtime. Klonopin in a dose of 1 mg twice a day was added. The patient's affect was gradually getting brighter and the patient was getting calmer gradually. He was less agitated and he was easier to follow directions. The patient also was not threatening others and was compliant with taking his medications and was discharged to [facility]. Depakote blood level on 09/23/2018 was less than 10 and on 09/28/2018 Depakote blood level was 22.9. Physical examination of the patient came as mentioned under ____ final diagnosis. The patient had no major medical problems while in the hospital. AFTER DISCHARGE PLANS: The patient discharged from the hospital and returned to [facility] with plans to follow him there. EXPECTED OUTCOME AFTER DISCHARGE: Fair if the patient continues to take her psychotropic medications and follow up with discharge plans. [facility]# [id number]
[2018-09-29] MEDS: Aspirin 81mg Chewable Tab PO SCH (09:18)
[2018-09-29] MEDS: Fish Oil 1,000 MG SGL PO SCH (09:18)
[2018-09-29] MEDS: Ferrous Sulfate 325 MG TAB PO SCH (09:18)
== END 2018-09-29 11:15 | DRG 885 ==
LOC: ER 19:43 → GERO 21:35
PROVIDERS: ADMIT Psychiatry & Neurology Psychiatry; ATTEND Psychiatry & Neurology Psychiatry
DX: F31.2 Bipolar disorder, current episode manic severe with psychotic features (principal); E11.9 Type 2 diabetes mellitus without complications; I25.5 Ischemic cardiomyopathy; I49.5 Sick sinus syndrome; H40.9 Unspecified glaucoma; G47.00 Insomnia, unspecified; D64.9 Anemia, unspecified; M19.90 Unspecified osteoarthritis, unspecified site; F17.210 Nicotine dependence, cigarettes, uncomplicated; Z79.82 Long term (current) use of aspirin
CPT/HCPCS: 36415-UA; 80053-TC; 80061-TC; 80164-TC; 80307; 80320-TC; 80329-TC; 81003-TC; 83036-90; 84443-TC; 85025-TC; 86592-TC; 93005; G0410; Z7610

== ENCOUNTER 2019-08-27 17:54 | Inpatient (IN) | payer MEDICARE ==
[2019-08-28 02:46] VITALS: BP 128/64
[2019-08-28] MEDS ORDERED: Magnesium Hydroxide (MOM) 30 mL UDC PO PRN (02:48)
--- NOTE | 2019-08-28 07:44 | History and Physical ---
History of Present Illness - HPI Chief Complaint: psychosis HPI: 64 y/o male who was transferred to [facility] from [facility] following medical clearance. Patient is a resident from [facility]. Nursing staff noted a change in behavior. Patient was noted to have been touching staff and inappropriate behavior. Patient was subsequently transferred for evaluation. While in the ER patient had initial labwork done. WBC 4.9 H/H 12.6/37.8 platelets 135K Na 142 K 4.4 Bun/cr 24/0.92 glu 93 UA neg UDS+ tricyclic Patient was subsequently admitted to [facility]. PMH includes Osteoarthritis, Ischemic Cardiomyopathy, Type 2DM, muscle wasting, Hyperlipidemia, Anemia, HTN, COPD, Glaucoma, paranoid Schizophrenia, Glaucoma, Anxiety Disorder, Major Depression, Bipolar Disorder. Vital Signs: Last Vital Signs Temp 98.9 F 08/28/19 06:41 Pulse 73 08/28/19 06:41 Resp 20 08/28/19 06:41 BP 124/77 08/28/19 06:41 Pulse Ox 97 08/28/19 06:41 Past Medical History Cardiovascular: Report: HTN, Hyperlipidemia Pulmonary: Report: COPD FLOSSER: Report: No Pertinent Hx GI: Report: No Pertinent Hx Psych: Report: Anxiety, Bipolar, Depression, Psychosis Musculoskeletal: Report: Osteoarthritis Rheumatologic: Report: No pertinent Hx Infectious Disease: Report: No Pertinent Hx Renal/: Report: No Pertinent Hx Endocrine: Report: Diabetes Dermatology: Report: No Pertinent Hx - Past Surgical History Past Surgical History: No pertinent Hx Family Medical History - Family Member Mother History Unknown: Yes Ethnicity: Non- Hx Family Cancer: No Hx Family Coronary Artery Disease: No Hx Family Congestive Heart Failure: No Hx Family Stroke: No Hx Family Diabetes: No Hx Family AIDS: No Hx Family COPD: Yes Social History Smoke: No Alcohol: None Drugs: None Lives: Alone - Medications Home Medications: Home Medication Medication Instructions Recorded Type Aspirin [Aspirin Chewable] 81 mg PO DAILY ctb 09/29/[address] [Depakote DR] 500 mg PO BID tcp 09/29/18 Rx Docusate Sodium [Colace] 250 mg PO QAM sgl 09/29/18 Rx Ferrous Sulfate [Iron] 325 mg PO DAILY tab 09/29/18 Rx Fish Oil [[place] 3] 1,000 mg PO DAILY sgl 09/29/18 Rx Lorazepam [Ativan] 0.5 mg PO Q4HR PRN tab 09/29/18 Rx Zolpidem Tartrate [Ambien] 5 mg PO HS PRN tab 09/29/18 Rx QUEtiapine Fumarate [SEROquel] 200 mg PO BID 08/28/19 History clonazePAM [klonoPIN] 1 mg PO BID 08/28/19 History - Allergies Allergies/Adverse Reactions: Allergies Allergy/AdvReac Type Severity Reaction Status Date / Time No Known Allergies Allergy Verified 05/14/17 16:19 Review of Systems - Review of Systems Constitutional: Report: No Significant Eyes: Report: No Significant ENT: Report: No Significant Respiratory: Report: No Significant Cardiovascular: Report: No Significant Gastrointestinal: Report: No Significant Genitourinary: Report: No Significant Musculoskeletal: Report: No Significant Skin: Report: No Significant Neurological: Report: No Significant Physical Exam - Physical Exam HEENT: Report: Ears Nose Throat within normal limits, Pharnyx within normal limits Neck: Report: Within normal limits Cardiovascular Systems: Report: +s1/s2 noted, Regular, Rate and Rhythm Respiratory: Report: Breath Sounds are within normal limits Abdomen: Report: Non-tender to palpation Back: Report: Inspection of back is within normal limits. Extremities: Report: Non-tender to palpation. Skin: Report: Color of skin is within normal limits Neuro/Psych: Report: Mood affect is within normal limits, A+Ox3 - Assessment Assessment: Psychosis Osteoarthritis Ischemic Cardiomyopathy Type 2DM muscle wasting Hyperlipidemia Anemia HTN COPD Glaucoma paranoid Schizophrenia Anxiety Disorder Major Depression Bipolar Disorder - Plan Plan: admit to [facility] continue current orders.
[2019-08-28] MEDS: Multivitamin Tab PO SCH (08:59)
[2019-08-28] MEDS: Ferrous Sulfate 325 MG TAB PO SCH (08:59)
[2019-08-28] MEDS: Aspirin 81mg Chewable Tab PO SCH (08:59)
[2019-08-28] MEDS: Fish Oil 1,000 MG SGL PO SCH (08:59)
--- NOTE | 2019-08-28 09:34 | Psychiatric Evaluation ---
DATE OF SERVICE: 08/28/2019 JUSTIFICATION FOR HOSPITALIZATION: Bizarre ideations, aggressive posturing towards staff. This 64-year-old male coming in from [place], apparently chasing nurses around and yelling and behaving inappropriately and aggressive and aggressive towards staff, and cannot control his behaviors. The patient is AO to name only, does not know where he is or what is going on. He has no idea why he is here. Very poor historian, just yelling, screaming on the unit. PAST PSYCHIATRIC HISTORY: Noted history of bipolar, possibly schizophrenia. FAMILY HISTORY: Noncontributory. SOCIAL HISTORY: He states he was born in [place], [place]. Not , no kids, staying at [place]. MEDICATIONS: Medications were noted. MEDICAL HISTORY: Noted. MENTAL STATUS EXAMINATION: Disheveled, unkempt, pacing, loud, yelling, screaming, AO to name only. Unclear SI or HI, but mumbling to self, seems paranoid. Poor insight and judgment. PROVISIONAL DIAGNOSES: Schizophrenia versus bipolar, concerns for dementia. MEDICAL: Please see full H and P. ESTIMATED LENGTH OF STAY: 7-10 days. ASSESSMENT: The patient requiring hospitalization, bizarre, aggressive. Staff could not control his behaviors. CONDITIONS FOR DISCHARGE: Improved mood, improved affect, better control of his aggressive symptoms. JOB# [id number]
[2019-08-28] MEDS ORDERED: Haloperidol Lactate 5 mg/mL 1mL Vial IM ONE (09:57)
[2019-08-28] MEDS ORDERED: Haloperidol Lactate 5 mg/mL 1mL Vial ONE (10:02)
[2019-08-28] MEDS ORDERED: Haloperidol Lactate 5 mg/mL 1mL Vial IM STA (20:55)
--- NOTE | 2019-08-29 08:21 | General Progress Note ---
Subjective - Review of Systems Service Date: 08/29/19 Subjective: Patient is awake, alert, afebrile vitals signs are stable Objective - Physical Exam Vitals and I&O: Vital Signs Temp 97.8 F 08/29/19 06:32 Pulse 87 08/29/19 06:32 Resp 20 08/29/19 07:55 BP 120/55 08/29/19 06:32 Pulse Ox 97 08/29/19 06:32 Intake & Output 08/28/19 08/29/19 08/29/19 18:59 06:59 18:59 Intake Total 1200 360 Balance 1200 360 Intake: Oral 1200 360 Other: # Voids 2 # Bowel Movements 1 0 Active Medications: Current Medications Acetaminophen (Tylenol) 650 mg PO Q4H PRN PRN Reason: Pain (Mild 1-3) Stop: 10/27/19 02:47 Aspirin (Aspirin Chewable) 81 mg PO DAILY [facility] Stop: 10/27/19 08:59 Last Admin: 08/28/19 08:59 Dose: 81 mg Clonazepam (Klonopin) 1 mg PO BID [facility]; Protocol Stop: 10/27/19 08:59 Last Admin: 08/28/19 16:53 Dose: 1 mg Divalproex Sodium (Depakote Dr) 500 mg PO BID [facility]; Protocol Stop: 10/27/19 08:59 Last Admin: 08/28/19 16:53 Dose: 500 mg Docusate Sodium (Colace) 250 mg PO QAM [facility] Stop: 10/27/19 08:59 Last Admin: 08/28/19 08:59 Dose: 250 mg Ferrous Sulfate (Iron) 325 mg PO DAILY [facility] Stop: 10/27/19 08:59 Last Admin: 08/28/19 08:59 Dose: 325 mg Fish Oil ([place] 3) 1,000 mg PO DAILY [facility] Stop: 10/27/19 08:59 Last Admin: 08/28/19 08:59 Dose: 1,000 mg Lorazepam (Ativan) 0.5 mg PO Q4HR PRN; Protocol PRN Reason: Anxiety Stop: 09/27/19 02:14 Last Admin: 08/28/19 08:59 Dose: 0.5 mg Magnesium Hydroxide (Milk Of Magnesia) 30 ml PO HS PRN PRN Reason: Constipation Multivitamins/Vitamin C (Theragran) 1 tab PO DAILY [facility] Stop: 10/27/19 08:59 Last Admin: 08/28/19 08:59 Dose: 1 tab Quetiapine Fumarate (Seroquel) 200 mg PO BID [facility]; Protocol Stop: 10/27/19 08:59 Last Admin: 08/28/19 16:53 Dose: 200 mg Zolpidem Tartrate (Ambien) 5 mg PO HS PRN PRN Reason: Insomnia Stop: 10/27/19 03:15 General: Alert, No acute distress HEENT: Atraumatic, PERRLA, EOMI Neck: Supple Cardiovascular: Regular rate, Normal S1, Normal S2 Lungs: Clear to auscultation Abdomen: Bowel sounds Extremities: no Clubbing, no Cyanosis, no Edema Neurological: Normal gait Assessment/Plan - Assessment Assessment: Psychosis Osteoarthritis Ischemic Cardiomyopathy Type 2DM muscle wasting Hyperlipidemia Anemia HTN COPD Glaucoma paranoid Schizophrenia Anxiety Disorder Major Depression Bipolar Disorder - [facility] current orders.
[2019-08-29] MEDS: Multivitamin Tab PO SCH (08:33)
[2019-08-29] MEDS: Fish Oil 1,000 MG SGL PO SCH (08:33)
[2019-08-29] MEDS: Aspirin 81mg Chewable Tab PO SCH (08:33)
[2019-08-29] MEDS: Ferrous Sulfate 325 MG TAB PO SCH (08:34)
--- NOTE | 2019-08-30 00:04 | Progress Notes ---
DATE: 08/29/2019 PHYSICIAN: Merced Mak DO COVERING FOR: Fish Crawley M.D. SUBJECTIVE: The patient was interviewed. Case was discussed with staff. Chart and records were reviewed. Per the staff, the patient has been responding to internal stimuli, has been withdrawn and internally preoccupied in his own room. The patient was interviewed this morning at bedside. He refused to engage with the interview, sleeping, would awake to his name, but quickly would fall back asleep. The patient is admitted apparently due to chasing nurses around, yelling and behaving inappropriately, and aggressive towards staff at his previous facility at [facility]. MENTAL STATUS EXAMINATION: The patient is sleeping in his bed. He awakes to his name, but quickly falls back asleep. He appears to be irritable, uncooperative, disorganized with poor insight, judgment and impulse control. ASSESSMENT AND PLAN: We will continue the patient's acute hospitalization. We will continue medications as prescribed. We will encourage the patient to verbalize his needs, and to participate in group and milieu therapy. JOB# [id number]
--- NOTE | 2019-08-30 07:21 | Progress Notes ---
DATE: 08/30/2019 PSYCHIATRIC PROGRESS NOTE SUBJECTIVE: Chart was reviewed and the patient interviewed. Also discussed the patient's condition with the staff and reviewed records and labs. The patient is extremely agitated and is still in angry and in irritable mood. The patient also is yelling and screaming for no apparent reason. The patient also is pacing up and down the unit and talking and laughing to himself. He is suspicious and paranoid. The patient's gait is steady and vital signs are stable and no new labs available for review. MENTAL STATUS: Irritable mood. Disheveled. Actively hallucinating and talking to self. ASSESSMENT: The patient is still psychotic and agitated. TREATMENT PLAN: We will continue monitoring his behavior and his condition closely. Also, we will increase Seroquel to 250 mg twice a day. Also, we will get a Depakote blood level. Also, we will work on behavioral modification and his poor impulse control. ESTIMATED LENGTH OF STAY: 4-6 days. REASON FOR CONTINUED HOSPITAL STAY: The patient is still agitated and aggressive and in irritable mood. JOB# [id number]
--- NOTE | 2019-08-30 08:06 | General Progress Note ---
Subjective - Review of Systems Service Date: 08/30/19 Subjective: Patient is awake, alert, afebrile VS T 97.0 P 64 BP 118/70 R 20 Objective - Physical Exam Vitals and I&O: Vital Signs Temp 97.9 F 08/30/19 06:44 Pulse 64 08/30/19 06:44 Resp 20 08/30/19 06:44 BP 118/70 08/30/19 06:44 Pulse Ox 97 08/30/19 06:44 Intake & Output 08/29/19 08/30/19 08/30/19 18:59 06:59 18:59 Intake Total 900 360 Balance 900 360 Intake: Oral 900 360 Other: # Voids 1 # Bowel Movements 1 0 Active Medications: Current Medications Acetaminophen (Tylenol) 650 mg PO Q4H PRN PRN Reason: Pain (Mild 1-3) Stop: 10/27/19 02:47 Aspirin (Aspirin Chewable) 81 mg PO DAILY [facility] Stop: 10/27/19 08:59 Last Admin: 08/29/19 08:33 Dose: 81 mg Clonazepam (Klonopin) 1 mg PO BID [facility]; Protocol Stop: 10/27/19 08:59 Last Admin: 08/29/19 17:01 Dose: 1 mg Divalproex Sodium (Depakote Dr) 500 mg PO BID [facility]; Protocol Stop: 10/27/19 08:59 Last Admin: 08/29/19 17:01 Dose: 500 mg Docusate Sodium (Colace) 250 mg PO QAM [facility] Stop: 10/27/19 08:59 Last Admin: 08/29/19 08:33 Dose: 250 mg Ferrous Sulfate (Iron) 325 mg PO DAILY [facility] Stop: 10/27/19 08:59 Last Admin: 08/29/19 08:34 Dose: 325 mg Fish Oil ([place] 3) 1,000 mg PO DAILY [facility] Stop: 10/27/19 08:59 Last Admin: 08/29/19 08:33 Dose: 1,000 mg Lorazepam (Ativan) 0.5 mg PO Q4HR PRN; Protocol PRN Reason: Anxiety Stop: 09/27/19 02:14 Last Admin: 08/29/19 21:21 Dose: 0.5 mg Magnesium Hydroxide (Milk Of Magnesia) 30 ml PO HS PRN PRN Reason: Constipation Multivitamins/Vitamin C (Theragran) 1 tab PO DAILY [facility] Stop: 10/27/19 08:59 Last Admin: 08/29/19 08:33 Dose: 1 tab Quetiapine Fumarate (Seroquel) 250 mg PO BID [facility]; Protocol Stop: 10/29/19 08:59 Zolpidem Tartrate (Ambien) 5 mg PO HS PRN PRN Reason: Insomnia Stop: 10/27/19 03:15 Last Admin: 08/29/19 22:45 Dose: 5 mg General: Alert, No acute distress HEENT: Atraumatic, PERRLA, EOMI Neck: Supple Cardiovascular: Regular rate, Normal S1, Normal S2 Lungs: Clear to auscultation Abdomen: Bowel sounds Extremities: no Clubbing, no Cyanosis, no Edema Neurological: Normal gait Assessment/Plan - Assessment Assessment: Psychosis Osteoarthritis Ischemic Cardiomyopathy Type 2DM muscle wasting Hyperlipidemia Anemia HTN COPD Glaucoma paranoid Schizophrenia Anxiety Disorder Major Depression Bipolar Disorder - [facility].
[2019-08-30] MEDS: Ferrous Sulfate 325 MG TAB PO SCH (08:26)
[2019-08-30] MEDS: Fish Oil 1,000 MG SGL PO SCH (08:26)
[2019-08-30] MEDS: Aspirin 81mg Chewable Tab PO SCH (08:26)
[2019-08-30] MEDS: Multivitamin Tab PO SCH (08:26)
[2019-08-30] MEDS ORDERED: Haloperidol Lactate 5 mg/mL 1mL Vial IM ONE (09:35)
[2019-08-30] MEDS ORDERED: Haloperidol Lactate 5 mg/mL 1mL Vial ONE (09:40)
--- NOTE | 2019-08-31 07:54 | General Progress Note ---
Subjective - Review of Systems Service Date: 08/31/19 Subjective: Patient is awake, alert, afebrile VS T 98.5 P 89 BP 123/87 R 19 Objective - Physical Exam Vitals and I&O: Vital Signs Temp 98.5 F 08/31/19 06:48 Pulse 89 08/31/19 06:48 Resp 19 08/31/19 06:48 BP 123/87 08/31/19 06:48 Pulse Ox 98 08/31/19 06:48 Intake & Output 08/30/19 08/31/19 08/31/19 18:59 06:59 18:59 Intake Total 1400 120 Balance 1400 120 Intake: Oral 1400 120 Other: # Voids 4 3 # Bowel Movements 0 0 Active Medications: Current Medications Acetaminophen (Tylenol) 650 mg PO Q4H PRN PRN Reason: Pain (Mild 1-3) Stop: 10/27/19 02:47 Aspirin (Aspirin Chewable) 81 mg PO DAILY [facility] Stop: 10/27/19 08:59 Last Admin: 08/30/19 08:26 Dose: 81 mg Clonazepam (Klonopin) 1 mg PO BID [facility]; Protocol Stop: 10/27/19 08:59 Last Admin: 08/30/19 16:47 Dose: 1 mg Divalproex Sodium (Depakote Dr) 500 mg PO BID [facility]; Protocol Stop: 10/27/19 08:59 Last Admin: 08/30/19 16:47 Dose: 500 mg Docusate Sodium (Colace) 250 mg PO QAM [facility] Stop: 10/27/19 08:59 Last Admin: 08/30/19 08:27 Dose: 250 mg Ferrous Sulfate (Iron) 325 mg PO DAILY [facility] Stop: 10/27/19 08:59 Last Admin: 08/30/19 08:26 Dose: 325 mg Fish Oil ([place] 3) 1,000 mg PO DAILY [facility] Stop: 10/27/19 08:59 Last Admin: 08/30/19 08:26 Dose: 1,000 mg Lorazepam (Ativan) 0.5 mg PO Q4HR PRN; Protocol PRN Reason: Anxiety Stop: 09/27/19 02:14 Last Admin: 08/30/19 16:47 Dose: 0.5 mg Magnesium Hydroxide (Milk Of Magnesia) 30 ml PO HS PRN PRN Reason: Constipation Multivitamins/Vitamin C (Theragran) 1 tab PO DAILY [facility] Stop: 10/27/19 08:59 Last Admin: 08/30/19 08:26 Dose: 1 tab Quetiapine Fumarate (Seroquel) 250 mg PO BID [facility]; Protocol Stop: 10/29/19 08:59 Last Admin: 08/30/19 16:47 Dose: 250 mg Zolpidem Tartrate (Ambien) 5 mg PO HS PRN PRN Reason: Insomnia Stop: 10/27/19 03:15 Last Admin: 08/30/19 20:46 Dose: 5 mg General: Alert, No acute distress HEENT: Atraumatic, PERRLA, EOMI Neck: Supple Cardiovascular: Regular rate, Normal S1, Normal S2 Lungs: Clear to auscultation Abdomen: Bowel sounds Extremities: no Clubbing, no Cyanosis, no Edema Neurological: Normal gait Assessment/Plan - Assessment Assessment: Psychosis Osteoarthritis Ischemic Cardiomyopathy Type 2DM muscle wasting Hyperlipidemia Anemia HTN COPD Glaucoma paranoid Schizophrenia Anxiety Disorder Major Depression Bipolar Disorder - Plan Plan: admit to [facility] continue current orders.
[2019-08-31] MEDS: Fish Oil 1,000 MG SGL PO SCH (08:42)
[2019-08-31] MEDS: Aspirin 81mg Chewable Tab PO SCH (08:43)
[2019-08-31] MEDS: Multivitamin Tab PO SCH (08:43)
[2019-08-31] MEDS: Ferrous Sulfate 325 MG TAB PO SCH (08:43)
--- NOTE | 2019-08-31 21:42 | Progress Notes ---
DATE: 08/31/2019 SUBJECTIVE: Chart was reviewed and the patient interviewed. Also discussed the patient's condition with the staff, and reviewed records and labs. The patient is still actively responding, and is still yelling and speaking loud. The patient also is still talking to himself and laughing inappropriately to himself and actively responding. The patient also is pacing up and down the unit with severe mood swings and also demanding. Also, the patient seems to be paranoid and talking about [employer] and issues that are not related. Otherwise, it seems slightly easier to redirect him. During interview, the patient is unkempt. Flat affect. Responding and talking to imaginary objects. ASSESSMENT: The patient is still psychotic and agitated. TREATMENT PLAN: Continue to monitor behavior and condition closely. Also, continue adjusting psychotropic medications and work on behavioral modification. ESTIMATED LENGTH OF STAY: 3 to 5 days. REASON TO CONTINUE HOSPITAL STAY: The patient is still agitated and psychotic, and also is still aggressive and can be dangerous to others. JOB# [id number]
--- NOTE | 2019-09-01 07:20 | Progress Notes ---
DATE: 09/01/2019 SUBJECTIVE: Chart was reviewed and the patient interviewed. Also discussed the patient's condition with the staff and reviewed records and labs. The patient is still extremely irritable and agitated. The patient also still has episodes of yelling and screaming. The patient also is restless and he still has severe mood swings. Otherwise, the patient easy to follow directions. The patient's gait is steady. Vital signs are stable and no new labs available for review. MENTAL STATUS EXAMINATION: Unkempt. Agitated. Irritable. The patient denies any hallucinations, but the patient is suspicious and paranoid. ASSESSMENT: The patient is still agitated and in irritable mood. TREATMENT PLAN: We will change Seroquel to 200 mg in the morning and 400 mg at bedtime. Also, continue to monitor his behavior and work on behavioral modification. Also, we will work on his irritability. ESTIMATED LENGTH OF STAY: 2-4 days. REASON FOR CONTINUED HOSPITAL STAY: The patient is still agitated and still needs monitoring of his medications and still can be dangerous to others. Depakote blood level that was done on came back to be a 48, which is slightly below therapeutic level, but at the same time, we will continue current dose and follow up. JOB# [id number]
[2019-09-01] MEDS: Ferrous Sulfate 325 MG TAB PO SCH (08:20)
[2019-09-01] MEDS: Aspirin 81mg Chewable Tab PO SCH (08:20)
[2019-09-01] MEDS: Multivitamin Tab PO SCH (08:20)
[2019-09-01] MEDS: Fish Oil 1,000 MG SGL PO SCH (08:20)
--- NOTE | 2019-09-01 08:24 | General Progress Note ---
Subjective - Review of Systems Service Date: 09/01/19 Subjective: Patient is awake, alert, afebrile VS T 98.5 P 83 BP 140/89 R 19 Objective - Physical Exam Vitals and I&O: Vital Signs Temp 98.5 F 09/01/19 05:32 Pulse 83 09/01/19 05:32 Resp 19 09/01/19 05:32 BP 140/89 09/01/19 05:32 Pulse Ox 100 09/01/19 05:32 Intake & Output 08/31/19 09/01/19 09/01/19 18:59 06:59 18:59 Intake Total 900 Balance 900 Intake: Oral 900 Other: # Voids 3 3 # Bowel Movements 1 0 Active Medications: Current Medications Acetaminophen (Tylenol) 650 mg PO Q4H PRN PRN Reason: Pain (Mild 1-3) Stop: 10/27/19 02:47 Aspirin (Aspirin Chewable) 81 mg PO DAILY [facility] Stop: 10/27/19 08:59 Last Admin: 08/31/19 08:43 Dose: 81 mg Clonazepam (Klonopin) 1 mg PO BID [facility]; Protocol Stop: 10/27/19 08:59 Last Admin: 08/31/19 17:01 Dose: 1 mg Divalproex Sodium (Depakote Dr) 500 mg PO BID [facility]; Protocol Stop: 10/27/19 08:59 Last Admin: 08/31/19 17:02 Dose: 500 mg Docusate Sodium (Colace) 250 mg PO QAM [facility] Stop: 10/27/19 08:59 Last Admin: 08/31/19 08:43 Dose: 250 mg Ferrous Sulfate (Iron) 325 mg PO DAILY [facility] Stop: 10/27/19 08:59 Last Admin: 08/31/19 08:43 Dose: 325 mg Fish Oil ([place] 3) 1,000 mg PO DAILY [facility] Stop: 10/27/19 08:59 Last Admin: 08/31/19 08:42 Dose: 1,000 mg Lorazepam (Ativan) 0.5 mg PO Q4HR PRN; Protocol PRN Reason: Anxiety Stop: 09/27/19 02:14 Last Admin: 08/31/19 08:43 Dose: 0.5 mg Magnesium Hydroxide (Milk Of Magnesia) 30 ml PO HS PRN PRN Reason: Constipation Multivitamins/Vitamin C (Theragran) 1 tab PO DAILY [facility] Stop: 10/27/19 08:59 Last Admin: 08/31/19 08:43 Dose: 1 tab Quetiapine Fumarate (Seroquel) 200 mg PO BID [facility]; Protocol Stop: 10/31/19 08:59 Quetiapine Fumarate (Seroquel) 400 mg PO HS [facility]; Protocol Stop: 10/31/19 20:59 Zolpidem Tartrate (Ambien) 5 mg PO HS PRN PRN Reason: Insomnia Stop: 10/27/19 03:15 Last Admin: 08/30/19 20:46 Dose: 5 mg General: Alert, No acute distress HEENT: Atraumatic, PERRLA, EOMI Neck: Supple Cardiovascular: Regular rate, Normal S1, Normal S2 Lungs: Clear to auscultation Abdomen: Bowel sounds Extremities: no Clubbing, no Cyanosis, no Edema Neurological: Normal gait Assessment/Plan - Assessment Assessment: Psychosis Osteoarthritis Ischemic Cardiomyopathy Type 2DM muscle wasting Hyperlipidemia Anemia HTN COPD Glaucoma paranoid Schizophrenia Anxiety Disorder Major Depression Bipolar Disorder - Plan [facility] current orders. Nutritional Asmnt/Malnutr-PDOC - Dietary Evaluation Malnutrition Findings (Please click <Entered> for more info): Nutritional Asmnt/Malnutrition Start: 08/31/19 14: 27 Text: Status: Complete Freq: Protocol: Document 08/31/19 14:27 VELMA (Rec: 08/31/19 14:46 [email or web address]) Nutritional Asmnt/Malnutrition Patient General Information Nutritional Screening Moderate Risk Diagnosis Psychosis Pertinent Medical Hx/Surgical Hx Osteoarthritis, ischemic Cardiomyopathy, Type 2DM, muscle wasting, hyperlipidemia , Anemia, HTN, COPD, Glaucoma, paranoid Schizophrenia, Anxiety Disorder, Major Depression, Bipolar Disorder. Subjective Information Pt is a 64-year-old male admitted on 08/27 d/t psychosis. Pt is eating an estimated 92% of meals Per Meal/Nutrition Activity Record . Dietary is currently providing an estimated 1373 kcals and 82 gm Pro (x3 days), per Pt PO intake this is providing an estimated 1249 kcals and 75gm Pro to meet 89% kcal and 100+% Pro needs. Visited pt after lunch. Tried asking pt a few questions. Pt seemed agitated and did not want to talk, asked us to leave. Spoke with charge nurse Simran regarding pending A1C. Anthropometrics HT: 50 WT: 128 LB (58.18 kg) BMI: 25.02 (Overweight) GI/ Skin Integrity GI: WNL, Flat, Soft, Non- Tender BM: 08/28 x1 I/O: 1520/Not Noted Skin: None/Intact Shayan: 22 Diet Order: 60gms, GATO, Msoft Estimated Energy Needs: ( Geriatric, CBW) 9392-2078 kcals (25-30 kcals/ kg) 58-70g Pro (1.0-1.2 g/kg) 4126-7309 ml (25-30 ml/kg) Current Diet Order/ Nutrition Support 60gms, GATO, Msoft Pertinent Medications Colace, Iron, [place] 3, MOM ( PRN), Theragran Pertinent Labs No pertinent labs at this time . Nutritional Hx/Data Height 1.52 m Height (Calculated Centimeters) 152.4 Current Weight (lbs) 58.06 kg Weight (Calculated Kilograms) 58.1 Weight (Calculated Grams) 69787.8 [place] Body Weight 106 % [place] Body Weight 120 Body Mass Index (BMI) 25.0 Weight Status Approriate GI Symptoms Last BM 08/28 x1 Skin Integrity/Comment: Skin: None/Intact Shayan: 22 Current %PO Good (75-100%) Estimated Nutritional Goals BEE in Kcals: Using Current wt Calories/Kcals/Kg 25-30 Kcals Calculated 7791-5242 Protein: Using Current wt Protein g/k.0-1.2 Protein Calculated 58-70 Fluid: ml 1608-4208 ml (25-30 ml/kg) Nutritional Problem 1. Problem Problem No nutrition diagnosis at this time. Etiology N/A Signs/Symptoms: N/A Malnutrition Related to Morbid Obesity Malnutrition related to morbid obesity No Intervention/Recommendation Comments 1. Continue 60gms, GATO, msoft diet as tolerated. Expected Outcomes/Goals Expected Outcomes/Goals 1. PO intake to continue to meet >75% of estimated nutritional needs. 2. Monitor PO intake, wt, nutrition related labs, and skin integrity. 3. F/U as low risk in 7-10 days, 09/06-09/09
--- NOTE | 2019-09-02 08:06 | General Progress Note ---
Subjective - Review of Systems Service Date: 09/02/19 Subjective: Patient is awake, alert, afebrile VS T 97.6 P 56 BP 132/76 R 20 Objective - Physical Exam Vitals and I&O: Vital Signs Temp 97.8 F 09/02/19 07:02 Pulse 56 09/02/19 07:02 Resp 20 09/02/19 07:02 BP 132/76 09/02/19 07:02 Pulse Ox 98 09/02/19 07:02 Intake & Output 09/01/19 09/02/19 09/02/19 18:59 06:59 18:59 Intake Total 900 120 120 Balance 900 120 120 Intake: Oral 900 120 120 Other: # Voids 3 2 2 # Bowel Movements 1 0 0 Active Medications: Current Medications Acetaminophen (Tylenol) 650 mg PO Q4H PRN PRN Reason: Pain (Mild 1-3) Stop: 10/27/19 02:47 Aspirin (Aspirin Chewable) 81 mg PO DAILY [facility] Stop: 10/27/19 08:59 Last Admin: 09/01/19 08:20 Dose: 81 mg Clonazepam (Klonopin) 1 mg PO BID [facility]; Protocol Stop: 10/27/19 08:59 Last Admin: 09/01/19 16:19 Dose: 1 mg Divalproex Sodium (Depakote Dr) 500 mg PO BID [facility]; Protocol Stop: 10/27/19 08:59 Last Admin: 09/01/19 16:19 Dose: 500 mg Docusate Sodium (Colace) 250 mg PO QAM [facility] Stop: 10/27/19 08:59 Last Admin: 09/01/19 08:20 Dose: 250 mg Ferrous Sulfate (Iron) 325 mg PO DAILY [facility] Stop: 10/27/19 08:59 Last Admin: 09/01/19 08:20 Dose: 325 mg Fish Oil ([place] 3) 1,000 mg PO DAILY [facility] Stop: 10/27/19 08:59 Last Admin: 09/01/19 08:20 Dose: 1,000 mg Lorazepam (Ativan) 0.5 mg PO Q4HR PRN; Protocol PRN Reason: Anxiety Stop: 09/27/19 02:14 Last Admin: 08/31/19 08:43 Dose: 0.5 mg Magnesium Hydroxide (Milk Of Magnesia) 30 ml PO HS PRN PRN Reason: Constipation Multivitamins/Vitamin C (Theragran) 1 tab PO DAILY [facility] Stop: 10/27/19 08:59 Last Admin: 09/01/19 08:20 Dose: 1 tab Quetiapine Fumarate (Seroquel) 200 mg PO BID [facility]; Protocol Stop: 10/31/19 08:59 Last Admin: 09/01/19 16:19 Dose: 200 mg Quetiapine Fumarate (Seroquel) 400 mg PO HS [facility]; Protocol Stop: 10/31/19 20:59 Last Admin: 09/01/19 20:39 Dose: 400 mg Zolpidem Tartrate (Ambien) 5 mg PO HS PRN PRN Reason: Insomnia Stop: 10/27/19 03:15 Last Admin: 09/01/19 20:39 Dose: 5 mg General: Alert, No acute distress HEENT: Atraumatic, PERRLA, EOMI Neck: Supple Cardiovascular: Regular rate, Normal S1, Normal S2 Lungs: Clear to auscultation Abdomen: Bowel sounds Extremities: no Clubbing, no Cyanosis, no Edema Neurological: Normal gait Assessment/Plan - Assessment Assessment: Psychosis Osteoarthritis Ischemic Cardiomyopathy Type 2DM muscle wasting Hyperlipidemia Anemia HTN COPD Glaucoma paranoid Schizophrenia Anxiety Disorder Major Depression Bipolar Disorder - Plan Plan: admit to [facility] continue current orders. Nutritional Asmnt/Malnutr-PDOC - Dietary Evaluation Malnutrition Findings (Please click <Entered> for more info): Nutritional Asmnt/Malnutrition Start: 08/31/19 14: 27 Text: Status: Complete Freq: Protocol: Document 08/31/19 14:27 VELMA (Rec: 08/31/19 14:46 [email or web address]) Nutritional Asmnt/Malnutrition Patient General Information Nutritional Screening Moderate Risk Diagnosis Psychosis Pertinent Medical Hx/Surgical Hx Osteoarthritis, ischemic Cardiomyopathy, Type 2DM, muscle wasting, hyperlipidemia , Anemia, HTN, COPD, Glaucoma, paranoid Schizophrenia, Anxiety Disorder, Major Depression, Bipolar Disorder. Subjective Information Pt is a 64-year-old male admitted on 08/27 d/t psychosis. Pt is eating an estimated 92% of meals Per Meal/Nutrition Activity Record . Dietary is currently providing an estimated 1373 kcals and 82 gm Pro (x3 days), per Pt PO intake this is providing an estimated 1249 kcals and 75gm Pro to meet 89% kcal and 100+% Pro needs. Visited pt after lunch. Tried asking pt a few questions. Pt seemed agitated and did not want to talk, asked us to leave. Spoke with charge nurse Simran regarding pending A1C. Anthropometrics HT: 50 WT: 128 LB (58.18 kg) BMI: 25.02 (Overweight) GI/ Skin Integrity GI: WNL, Flat, Soft, Non- Tender BM: 08/28 x1 I/O: 1520/Not Noted Skin: None/Intact Shayan: 22 Diet Order: 60gms, GATO, Msoft Estimated Energy Needs: ( Geriatric, CBW) 0711-4582 kcals (25-30 kcals/ kg) 58-70g Pro (1.0-1.2 g/kg) 9352-5120 ml (25-30 ml/kg) Current Diet Order/ Nutrition Support 60gms, GATO, Msoft Pertinent Medications Colace, Iron, [place] 3, MOM ( PRN), Theragran Pertinent Labs No pertinent labs at this time . Nutritional Hx/Data Height 1.52 m Height (Calculated Centimeters) 152.4 Current Weight (lbs) 58.06 kg Weight (Calculated Kilograms) 58.1 Weight (Calculated Grams) 67510.8 [place] Body Weight 106 % [place] Body Weight 120 Body Mass Index (BMI) 25.0 Weight Status Approriate GI Symptoms Last BM 08/28 x1 Skin Integrity/Comment: Skin: None/Intact Shayan: 22 Current %PO Good (75-100%) Estimated Nutritional Goals BEE in Kcals: Using Current wt Calories/Kcals/Kg 25-30 Kcals Calculated 3696-8639 Protein: Using Current wt Protein g/k.0-1.2 Protein Calculated 58-70 Fluid: ml 9732-8809 ml (25-30 ml/kg) Nutritional Problem 1. Problem Problem No nutrition diagnosis at this time. Etiology N/A Signs/Symptoms: N/A Malnutrition Related to Morbid Obesity Malnutrition related to morbid obesity No Intervention/Recommendation Comments 1. Continue 60gms, GATO, msoft diet as tolerated. Expected Outcomes/Goals Expected Outcomes/Goals 1. PO intake to continue to meet >75% of estimated nutritional needs. 2. Monitor PO intake, wt, nutrition related labs, and skin integrity. 3. F/U as low risk in 7-10 days, 09/06-09/09
[2019-09-02] MEDS: Ferrous Sulfate 325 MG TAB PO SCH (08:42)
[2019-09-02] MEDS: Aspirin 81mg Chewable Tab PO SCH (08:42)
[2019-09-02] MEDS: Fish Oil 1,000 MG SGL PO SCH (08:42)
[2019-09-02] MEDS: Multivitamin Tab PO SCH (08:43)
--- NOTE | 2019-09-02 10:19 | Progress Notes ---
DATE: SUBJECTIVE: Chart was reviewed and the patient interviewed. Also discussed the patient's condition with the staff and reviewed records and labs. The patient is still anxious and he is still actively responding and talking to himself, but at the same time, decreased yelling episodes and decreased irritability. The patient also is less suspicious and less paranoid. The patient also is trying to interact more with peers and others and he is more compliant with taking his medications. I think, the patient's gait is steady and vital signs are stable and no new labs available for review. MENTAL STATUS EXAMINATION: Disheveled. Anxious. Talking to himself. Calm. No agitation. ASSESSMENT: The patient is still psychotic. TREATMENT PLAN: Continue to monitor behavior and condition. Also, continue adjusting psychotropic medications and also working on discharge plans and placement issue. ESTIMATED LENGTH OF STAY: 1-3 days. REASON TO CONTINUE HOSPITAL STAY: The patient is still agitated and psychotic and needs close monitoring. [facility]# [id number]
--- NOTE | 2019-09-03 07:59 | General Progress Note ---
Subjective - Review of Systems Service Date: 09/03/19 Subjective: Patient is awake, alert, afebrile VS T 97.8 P 82 BP 110/76 R 20 Objective - Physical Exam Vitals and I&O: Vital Signs Temp 97.8 F 09/03/19 05:44 Pulse 82 09/03/19 05:44 Resp 20 09/03/19 05:44 BP 110/76 09/03/19 05:44 Pulse Ox 98 09/03/19 05:44 Intake & Output 09/02/19 09/03/19 09/03/19 18:59 06:59 18:59 Intake Total 1120 360 Balance 1120 360 Intake: Oral 1120 360 Other: # Voids 2 1 # Bowel Movements 0 0 Active Medications: Current Medications Acetaminophen (Tylenol) 650 mg PO Q4H PRN PRN Reason: Pain (Mild 1-3) Stop: 10/27/19 02:47 Aspirin (Aspirin Chewable) 81 mg PO DAILY [facility] Stop: 10/27/19 08:59 Last Admin: 09/02/19 08:42 Dose: 81 mg Clonazepam (Klonopin) 1 mg PO BID [facility]; Protocol Stop: 10/27/19 08:59 Last Admin: 09/02/19 16:12 Dose: 1 mg Divalproex Sodium (Depakote Dr) 500 mg PO BID [facility]; Protocol Stop: 10/27/19 08:59 Last Admin: 09/02/19 16:12 Dose: 500 mg Docusate Sodium (Colace) 250 mg PO QAM [facility] Stop: 10/27/19 08:59 Last Admin: 09/02/19 08:42 Dose: 250 mg Ferrous Sulfate (Iron) 325 mg PO DAILY [facility] Stop: 10/27/19 08:59 Last Admin: 09/02/19 08:42 Dose: 325 mg Fish Oil ([place] 3) 1,000 mg PO DAILY [facility] Stop: 10/27/19 08:59 Last Admin: 09/02/19 08:42 Dose: 1,000 mg Lorazepam (Ativan) 0.5 mg PO Q4HR PRN; Protocol PRN Reason: Anxiety Stop: 09/27/19 02:14 Last Admin: 09/03/19 00:45 Dose: 0.5 mg Magnesium Hydroxide (Milk Of Magnesia) 30 ml PO HS PRN PRN Reason: Constipation Multivitamins/Vitamin C (Theragran) 1 tab PO DAILY [facility] Stop: 10/27/19 08:59 Last Admin: 09/02/19 08:43 Dose: 1 tab Quetiapine Fumarate (Seroquel) 200 mg PO BID [facility]; Protocol Stop: 10/31/19 08:59 Last Admin: 09/02/19 16:11 Dose: 200 mg Quetiapine Fumarate (Seroquel) 400 mg PO HS [facility]; Protocol Stop: 10/31/19 20:59 Last Admin: 09/02/19 20:36 Dose: 400 mg Zolpidem Tartrate (Ambien) 5 mg PO HS PRN PRN Reason: Insomnia Stop: 10/27/19 03:15 Last Admin: 09/01/19 20:39 Dose: 5 mg General: Alert, No acute distress HEENT: Atraumatic, PERRLA, EOMI Neck: Supple Cardiovascular: Regular rate, Normal S1, Normal S2 Lungs: Clear to auscultation Abdomen: Bowel sounds Extremities: no Clubbing, no Cyanosis, no Edema Neurological: Normal gait Assessment/Plan - Assessment Assessment: Psychosis Osteoarthritis Ischemic Cardiomyopathy Type 2DM muscle wasting Hyperlipidemia Anemia HTN COPD Glaucoma paranoid Schizophrenia Anxiety Disorder Major Depression Bipolar Disorder - Plan Plan: admit to [facility] continue current orders. Nutritional Asmnt/Malnutr-PDOC - Dietary Evaluation Malnutrition Findings (Please click <Entered> for more info): Nutritional Asmnt/Malnutrition Start: 08/31/19 14: 27 Text: Status: Complete Freq: Protocol: Document 08/31/19 14:27 VELMA (Rec: 08/31/19 14:46 [email or web address]) Nutritional Asmnt/Malnutrition Patient General Information Nutritional Screening Moderate Risk Diagnosis Psychosis Pertinent Medical Hx/Surgical Hx Osteoarthritis, ischemic Cardiomyopathy, Type 2DM, muscle wasting, hyperlipidemia , Anemia, HTN, COPD, Glaucoma, paranoid Schizophrenia, Anxiety Disorder, Major Depression, Bipolar Disorder. Subjective Information Pt is a 64-year-old male admitted on 08/27 d/t psychosis. Pt is eating an estimated 92% of meals Per Meal/Nutrition Activity Record . Dietary is currently providing an estimated 1373 kcals and 82 gm Pro (x3 days), per Pt PO intake this is providing an estimated 1249 kcals and 75gm Pro to meet 89% kcal and 100+% Pro needs. Visited pt after lunch. Tried asking pt a few questions. Pt seemed agitated and did not want to talk, asked us to leave. Spoke with charge nurse Simran regarding pending A1C. Anthropometrics HT: 50 WT: 128 LB (58.18 kg) BMI: 25.02 (Overweight) GI/ Skin Integrity GI: WNL, Flat, Soft, Non- Tender BM: 08/28 x1 I/O: 1520/Not Noted Skin: None/Intact Shayan: 22 Diet Order: 60gms, GATO, Msoft Estimated Energy Needs: ( Geriatric, CBW) 2815-6469 kcals (25-30 kcals/ kg) 58-70g Pro (1.0-1.2 g/kg) 8277-0431 ml (25-30 ml/kg) Current Diet Order/ Nutrition Support 60gms, GATO, Msoft Pertinent Medications Colace, Iron, [place] 3, MOM ( PRN), Theragran Pertinent Labs No pertinent labs at this time . Nutritional Hx/Data Height 1.52 m Height (Calculated Centimeters) 152.4 Current Weight (lbs) 58.06 kg Weight (Calculated Kilograms) 58.1 Weight (Calculated Grams) 81969.8 [place] Body Weight 106 % [place] Body Weight 120 Body Mass Index (BMI) 25.0 Weight Status Approriate GI Symptoms Last BM 08/28 x1 Skin Integrity/Comment: Skin: None/Intact Shayan: 22 Current %PO Good (75-100%) Estimated Nutritional Goals BEE in Kcals: Using Current wt Calories/Kcals/Kg 25-30 Kcals Calculated 7351-9846 Protein: Using Current wt Protein g/k.0-1.2 Protein Calculated 58-70 Fluid: ml 6219-6336 ml (25-30 ml/kg) Nutritional Problem 1. Problem Problem No nutrition diagnosis at this time. Etiology N/A Signs/Symptoms: N/A Malnutrition Related to Morbid Obesity Malnutrition related to morbid obesity No Intervention/Recommendation Comments 1. Continue 60gms, GATO, msoft diet as tolerated. Expected Outcomes/Goals Expected Outcomes/Goals 1. PO intake to continue to meet >75% of estimated nutritional needs. 2. Monitor PO intake, wt, nutrition related labs, and skin integrity. 3. F/U as low risk in 7-10 days, 09/06-09/09
[2019-09-03] MEDS: Ferrous Sulfate 325 MG TAB PO SCH (09:00)
[2019-09-03] MEDS: Fish Oil 1,000 MG SGL PO SCH (09:00)
[2019-09-03] MEDS: Multivitamin Tab PO SCH (09:00)
[2019-09-03] MEDS: Aspirin 81mg Chewable Tab PO SCH (09:00)
--- NOTE | 2019-09-03 10:32 | Progress Notes ---
DATE: SUBJECTIVE: Chart was reviewed and the patient interviewed. Also discussed the patient's condition with the staff and reviewed records and labs. The patient is still confused and also the patient is restless. During my interview, the patient was taking off his clothes in a different room, thinking that he is into the shower and staff has to redirect him and to monitor him closely. He is still restless and he is still easily agitated. Also, still having severe mood swings. The patient also is restless. He also still has difficulty following directions. The patient's gait is steady and vital signs are stable and no new labs available for review. TREATMENT PLAN: Continue to monitor behavior and condition closely. Also, continue adjusting psychotropic medications. Also, although Depakote blood level came back 48, which is below therapeutic level, but we will still monitor the dose and maybe will repeat Depakote blood level later on. At the same time, we will continue monitoring his behavior and continue working on his irritability and agitation. [facility]# [id number]
--- NOTE | 2019-09-04 08:51 | General Progress Note ---
Subjective - Review of Systems Service Date: 09/04/19 Subjective: Patient is awake, alert, afebrile VS T 98.0 P 83 BP 126/74 R 20 Objective - Physical Exam Vitals and I&O: Vital Signs Temp 98.0 F 09/04/19 06:12 Pulse 83 09/04/19 06:12 Resp 20 09/04/19 06:12 BP 126/74 09/04/19 06:12 Pulse Ox 97 09/04/19 06:12 Intake & Output 09/03/19 09/04/19 09/04/19 18:59 06:59 18:59 Intake Total 1200 120 Balance 1200 120 Intake: Oral 1200 120 Other: # Voids 1 # Bowel Movements 1 0 Active Medications: Current Medications Acetaminophen (Tylenol) 650 mg PO Q4H PRN PRN Reason: Pain (Mild 1-3) Stop: 10/27/19 02:47 Aspirin (Aspirin Chewable) 81 mg PO DAILY [facility] Stop: 10/27/19 08:59 Last Admin: 09/03/19 09:00 Dose: 81 mg Clonazepam (Klonopin) 1 mg PO BID [facility]; Protocol Stop: 10/27/19 08:59 Last Admin: 09/03/19 16:19 Dose: 1 mg Divalproex Sodium (Depakote Dr) 500 mg PO BID [facility]; Protocol Stop: 10/27/19 08:59 Last Admin: 09/03/19 16:19 Dose: 500 mg Docusate Sodium (Colace) 250 mg PO QAM [facility] Stop: 10/27/19 08:59 Last Admin: 09/03/19 09:00 Dose: 250 mg Ferrous Sulfate (Iron) 325 mg PO DAILY [facility] Stop: 10/27/19 08:59 Last Admin: 09/03/19 09:00 Dose: 325 mg Fish Oil ([place] 3) 1,000 mg PO DAILY [facility] Stop: 10/27/19 08:59 Last Admin: 09/03/19 09:00 Dose: 1,000 mg Lorazepam (Ativan) 0.5 mg PO Q4HR PRN; Protocol PRN Reason: Anxiety Stop: 09/27/19 02:14 Last Admin: 09/04/19 01:17 Dose: 0.5 mg Magnesium Hydroxide (Milk Of Magnesia) 30 ml PO HS PRN PRN Reason: Constipation Multivitamins/Vitamin C (Theragran) 1 tab PO DAILY [facility] Stop: 10/27/19 08:59 Last Admin: 09/03/19 09:00 Dose: 1 tab Quetiapine Fumarate (Seroquel) 200 mg PO BID [facility]; Protocol Stop: 10/31/19 08:59 Last Admin: 09/03/19 16:19 Dose: 200 mg Quetiapine Fumarate (Seroquel) 400 mg PO HS [facility]; Protocol Stop: 10/31/19 20:59 Last Admin: 09/03/19 20:32 Dose: 400 mg Zolpidem Tartrate (Ambien) 5 mg PO HS PRN PRN Reason: Insomnia Stop: 10/27/19 03:15 Last Admin: 09/01/19 20:39 Dose: 5 mg General: Alert, No acute distress HEENT: Atraumatic, PERRLA, EOMI Neck: Supple Cardiovascular: Regular rate, Normal S1, Normal S2 Lungs: Clear to auscultation Abdomen: Bowel sounds Extremities: no Clubbing, no Cyanosis, no Edema Neurological: Normal gait Assessment/Plan - Assessment Assessment: Psychosis Osteoarthritis Ischemic Cardiomyopathy Type 2DM muscle wasting Hyperlipidemia Anemia HTN COPD Glaucoma paranoid Schizophrenia Anxiety Disorder Major Depression Bipolar Disorder - Plan Plan: admit to [facility] continue current orders. Nutritional Asmnt/Malnutr-PDOC - Dietary Evaluation Malnutrition Findings (Please click <Entered> for more info): Nutritional Asmnt/Malnutrition Start: 08/31/19 14: 27 Text: Status: Complete Freq: Protocol: Document 08/31/19 14:27 VELMA (Rec: 08/31/19 14:46 [email or web address]) Nutritional Asmnt/Malnutrition Patient General Information Nutritional Screening Moderate Risk Diagnosis Psychosis Pertinent Medical Hx/Surgical Hx Osteoarthritis, ischemic Cardiomyopathy, Type 2DM, muscle wasting, hyperlipidemia , Anemia, HTN, COPD, Glaucoma, paranoid Schizophrenia, Anxiety Disorder, Major Depression, Bipolar Disorder. Subjective Information Pt is a 64-year-old male admitted on 08/27 d/t psychosis. Pt is eating an estimated 92% of meals Per Meal/Nutrition Activity Record . Dietary is currently providing an estimated 1373 kcals and 82 gm Pro (x3 days), per Pt PO intake this is providing an estimated 1249 kcals and 75gm Pro to meet 89% kcal and 100+% Pro needs. Visited pt after lunch. Tried asking pt a few questions. Pt seemed agitated and did not want to talk, asked us to leave. Spoke with charge nurse Simran regarding pending A1C. Anthropometrics HT: 50 WT: 128 LB (58.18 kg) BMI: 25.02 (Overweight) GI/ Skin Integrity GI: WNL, Flat, Soft, Non- Tender BM: 08/28 x1 I/O: 1520/Not Noted Skin: None/Intact Shayan: 22 Diet Order: 60gms, GATO, Msoft Estimated Energy Needs: ( Geriatric, CBW) 0473-1571 kcals (25-30 kcals/ kg) 58-70g Pro (1.0-1.2 g/kg) 2204-8469 ml (25-30 ml/kg) Current Diet Order/ Nutrition Support 60gms, GATO, Msoft Pertinent Medications Colace, Iron, [place] 3, MOM ( PRN), Theragran Pertinent Labs No pertinent labs at this time . Nutritional Hx/Data Height 1.52 m Height (Calculated Centimeters) 152.4 Current Weight (lbs) 58.06 kg Weight (Calculated Kilograms) 58.1 Weight (Calculated Grams) 37815.8 [place] Body Weight 106 % [place] Body Weight 120 Body Mass Index (BMI) 25.0 Weight Status Approriate GI Symptoms Last BM 08/28 x1 Skin Integrity/Comment: Skin: None/Intact Shayan: 22 Current %PO Good (75-100%) Estimated Nutritional Goals BEE in Kcals: Using Current wt Calories/Kcals/Kg 25-30 Kcals Calculated 6084-0615 Protein: Using Current wt Protein g/k.0-1.2 Protein Calculated 58-70 Fluid: ml 2072-6990 ml (25-30 ml/kg) Nutritional Problem 1. Problem Problem No nutrition diagnosis at this time. Etiology N/A Signs/Symptoms: N/A Malnutrition Related to Morbid Obesity Malnutrition related to morbid obesity No Intervention/Recommendation Comments 1. Continue 60gms, GATO, msoft diet as tolerated. Expected Outcomes/Goals Expected Outcomes/Goals 1. PO intake to continue to meet >75% of estimated nutritional needs. 2. Monitor PO intake, wt, nutrition related labs, and skin integrity. 3. F/U as low risk in 7-10 days, 09/06-09/09
[2019-09-04] MEDS: Ferrous Sulfate 325 MG TAB PO SCH (09:39)
[2019-09-04] MEDS: Fish Oil 1,000 MG SGL PO SCH (09:39)
[2019-09-04] MEDS: Multivitamin Tab PO SCH (09:39)
[2019-09-04] MEDS: Aspirin 81mg Chewable Tab PO SCH (09:40)
--- NOTE | 2019-09-05 02:54 | Progress Notes ---
DATE: 09/04/[address] Fernández. SUBJECTIVE: The patient was seen and evaluated. ____. The patient was brought in here for aggressive posturing behavior towards staff from [place], shaking nurses and yelling. Today on [id number] evaluation, the patient refuses to be interviewed, upon approach the patient wanders, leaves and starts talking to himself and upon approaching again, he becomes more irritable and walks away again. MENTAL STATUS EXAMINATION: Responding, restless, agitated. ASSESSMENT AND PLAN: Schizophrenic who continues to present distraught by the voices. Reconciliation reviewed. We will continue with clonazepam 1 mg p.o. b.i.d., Depakote 500 p.o. b.i.d., Seroquel 200 in the morning and 600 mg at nighttime, Depakote levels have been ordered, pending. The patient is ____. JOB# [id number]
[2019-09-05] MEDS: Aspirin 81mg Chewable Tab PO SCH (08:49)
[2019-09-05] MEDS: Fish Oil 1,000 MG SGL PO SCH (08:50)
[2019-09-05] MEDS: Ferrous Sulfate 325 MG TAB PO SCH (08:50)
[2019-09-05] MEDS: Multivitamin Tab PO SCH (08:50)
--- NOTE | 2019-09-05 08:50 | General Progress Note ---
Subjective - Review of Systems Service Date: 09/05/19 Subjective: Patient is awake, alert, afebrile VS T 96.4 P 81 BP 103/64 R 20 Objective - Physical Exam Vitals and I&O: Vital Signs Temp 96.4 F 09/05/19 06:18 Pulse 81 09/05/19 06:18 Resp 20 09/05/19 06:18 BP 103/64 09/05/19 06:18 Pulse Ox 97 09/05/19 06:18 Intake & Output 09/04/19 09/05/19 09/05/19 18:59 06:59 18:59 Intake Total 300 Balance 300 Intake: Oral 300 Other: # Voids 3 2 # Bowel Movements 1 0 Stool Characteristics Soft Formed Brown Active Medications: Current Medications Acetaminophen (Tylenol) 650 mg PO Q4H PRN PRN Reason: Pain (Mild 1-3) Stop: 10/27/19 02:47 Aspirin (Aspirin Chewable) 81 mg PO DAILY [facility] Stop: 10/27/19 08:59 Last Admin: 09/04/19 09:40 Dose: 81 mg Clonazepam (Klonopin) 1 mg PO BID [facility]; Protocol Stop: 10/27/19 08:59 Last Admin: 09/04/19 16:05 Dose: 1 mg Divalproex Sodium (Depakote Dr) 500 mg PO BID [facility]; Protocol Stop: 10/27/19 08:59 Last Admin: 09/04/19 16:05 Dose: 500 mg Docusate Sodium (Colace) 250 mg PO QAM [facility] Stop: 10/27/19 08:59 Last Admin: 09/04/19 09:40 Dose: 250 mg Ferrous Sulfate (Iron) 325 mg PO DAILY [facility] Stop: 10/27/19 08:59 Last Admin: 09/04/19 09:39 Dose: 325 mg Fish Oil ([place] 3) 1,000 mg PO DAILY [facility] Stop: 10/27/19 08:59 Last Admin: 09/04/19 09:39 Dose: 1,000 mg Lorazepam (Ativan) 0.5 mg PO Q4HR PRN; Protocol PRN Reason: Anxiety Stop: 09/27/19 02:14 Last Admin: 09/04/19 01:17 Dose: 0.5 mg Magnesium Hydroxide (Milk Of Magnesia) 30 ml PO HS PRN PRN Reason: Constipation Multivitamins/Vitamin C (Theragran) 1 tab PO DAILY [facility] Stop: 10/27/19 08:59 Last Admin: 09/04/19 09:39 Dose: 1 tab Quetiapine Fumarate (Seroquel) 200 mg PO BID [facility]; Protocol Stop: 10/31/19 08:59 Last Admin: 09/04/19 16:06 Dose: 200 mg Quetiapine Fumarate (Seroquel) 400 mg PO HS [facility]; Protocol Stop: 10/31/19 20:59 Last Admin: 09/04/19 20:46 Dose: 400 mg Zolpidem Tartrate (Ambien) 5 mg PO HS PRN PRN Reason: Insomnia Stop: 10/27/19 03:15 Last Admin: 09/01/19 20:39 Dose: 5 mg General: Alert, No acute distress HEENT: Atraumatic, PERRLA, EOMI Neck: Supple Cardiovascular: Regular rate, Normal S1, Normal S2 Lungs: Clear to auscultation Abdomen: Bowel sounds Extremities: no Clubbing, no Cyanosis, no Edema Neurological: Normal gait Assessment/Plan - Assessment Assessment: Psychosis Osteoarthritis Ischemic Cardiomyopathy Type 2DM muscle wasting Hyperlipidemia Anemia HTN COPD Glaucoma paranoid Schizophrenia Anxiety Disorder Major Depression Bipolar Disorder - Plan Plan: admit to [facility] continue current orders. Nutritional Asmnt/Malnutr-PDOC - Dietary Evaluation Malnutrition Findings (Please click <Entered> for more info): Nutritional Asmnt/Malnutrition Start: 08/31/19 14: 27 Text: Status: Complete Freq: Protocol: Document 08/31/19 14:27 VELMA (Rec: 08/31/19 14:46 [email or web address]) Nutritional Asmnt/Malnutrition Patient General Information Nutritional Screening Moderate Risk Diagnosis Psychosis Pertinent Medical Hx/Surgical Hx Osteoarthritis, ischemic Cardiomyopathy, Type 2DM, muscle wasting, hyperlipidemia , Anemia, HTN, COPD, Glaucoma, paranoid Schizophrenia, Anxiety Disorder, Major Depression, Bipolar Disorder. Subjective Information Pt is a 64-year-old male admitted on 08/27 d/t psychosis. Pt is eating an estimated 92% of meals Per Meal/Nutrition Activity Record . Dietary is currently providing an estimated 1373 kcals and 82 gm Pro (x3 days), per Pt PO intake this is providing an estimated 1249 kcals and 75gm Pro to meet 89% kcal and 100+% Pro needs. Visited pt after lunch. Tried asking pt a few questions. Pt seemed agitated and did not want to talk, asked us to leave. Spoke with charge nurse Simran regarding pending A1C. Anthropometrics HT: 50 WT: 128 LB (58.18 kg) BMI: 25.02 (Overweight) GI/ Skin Integrity GI: WNL, Flat, Soft, Non- Tender BM: 08/28 x1 I/O: 1520/Not Noted Skin: None/Intact Shayan: 22 Diet Order: 60gms, GATO, Msoft Estimated Energy Needs: ( Geriatric, CBW) 7986-0455 kcals (25-30 kcals/ kg) 58-70g Pro (1.0-1.2 g/kg) 5261-0888 ml (25-30 ml/kg) Current Diet Order/ Nutrition Support 60gms, GATO, Msoft Pertinent Medications Colace, Iron, [place] 3, MOM ( PRN), Theragran Pertinent Labs No pertinent labs at this time . Nutritional Hx/Data Height 1.52 m Height (Calculated Centimeters) 152.4 Current Weight (lbs) 58.06 kg Weight (Calculated Kilograms) 58.1 Weight (Calculated Grams) 19220.8 [place] Body Weight 106 % [place] Body Weight 120 Body Mass Index (BMI) 25.0 Weight Status Approriate GI Symptoms Last BM 08/28 x1 Skin Integrity/Comment: Skin: None/Intact Shayan: 22 Current %PO Good (75-100%) Estimated Nutritional Goals BEE in Kcals: Using Current wt Calories/Kcals/Kg 25-30 Kcals Calculated 7110-3981 Protein: Using Current wt Protein g/k.0-1.2 Protein Calculated 58-70 Fluid: ml 5349-1438 ml (25-30 ml/kg) Nutritional Problem 1. Problem Problem No nutrition diagnosis at this time. Etiology N/A Signs/Symptoms: N/A Malnutrition Related to Morbid Obesity Malnutrition related to morbid obesity No Intervention/Recommendation Comments 1. Continue 60gms, GATO, msoft diet as tolerated. Expected Outcomes/Goals Expected Outcomes/Goals 1. PO intake to continue to meet >75% of estimated nutritional needs. 2. Monitor PO intake, wt, nutrition related labs, and skin integrity. 3. F/U as low risk in 7-10 days, 09/06-09/09
--- NOTE | 2019-09-05 20:49 | Progress Notes ---
DATE: 09/05/[address] Fernández. SUBJECTIVE: Today on [id number] evaluation, the patient is ____, refuses to be interviewed. The patient reports that everything is fine and observed to be talking and responding, thought blocking. ASSESSMENT AND PLAN: Schizophrenia, who is tolerating the recent augmentation of Seroquel up to 800 mg without complications, he continues to reach steady state. JOB# [id number]
[2019-09-06] MEDS: Fish Oil 1,000 MG SGL PO SCH (08:11)
[2019-09-06] MEDS: Aspirin 81mg Chewable Tab PO SCH (08:11)
[2019-09-06] MEDS: Ferrous Sulfate 325 MG TAB PO SCH (08:11)
[2019-09-06] MEDS: Multivitamin Tab PO SCH (08:12)
--- NOTE | 2019-09-06 08:14 | General Progress Note ---
Subjective - Review of Systems Service Date: 09/06/19 Subjective: Patient is awake, alert, afebrile VS T 97.8 P 67 BP 126/74 R 18 Objective - Physical Exam Vitals and I&O: Vital Signs Temp 97.8 F 09/06/19 06:14 Pulse 67 09/06/19 06:14 Resp 18 09/06/19 06:14 BP 126/74 09/06/19 06:14 Pulse Ox 97 09/06/19 06:14 Intake & Output 09/05/19 09/06/19 09/06/19 18:59 06:59 18:59 Intake Total 1200 120 Balance 1200 120 Intake: Oral 1200 120 Other: # Voids 4 1 # Bowel Movements 1 0 Stool Characteristics Soft Soft Brown Formed Brown Active Medications: Current Medications Acetaminophen (Tylenol) 650 mg PO Q4H PRN PRN Reason: Pain (Mild 1-3) Stop: 10/27/19 02:47 Aspirin (Aspirin Chewable) 81 mg PO DAILY [facility] Stop: 10/27/19 08:59 Last Admin: 09/06/19 08:11 Dose: 81 mg Clonazepam (Klonopin) 1 mg PO BID [facility]; Protocol Stop: 10/27/19 08:59 Last Admin: 09/06/19 08:12 Dose: 1 mg Divalproex Sodium (Depakote Dr) 500 mg PO BID [facility]; Protocol Stop: 10/27/19 08:59 Last Admin: 09/06/19 08:11 Dose: 500 mg Docusate Sodium (Colace) 250 mg PO QAM [facility] Stop: 10/27/19 08:59 Last Admin: 09/06/19 08:11 Dose: 250 mg Ferrous Sulfate (Iron) 325 mg PO DAILY [facility] Stop: 10/27/19 08:59 Last Admin: 09/06/19 08:11 Dose: 325 mg Fish Oil ([place] 3) 1,000 mg PO DAILY [facility] Stop: 10/27/19 08:59 Last Admin: 09/06/19 08:11 Dose: 1,000 mg Lorazepam (Ativan) 0.5 mg PO Q4HR PRN; Protocol PRN Reason: Anxiety Stop: 09/27/19 02:14 Last Admin: 09/04/19 01:17 Dose: 0.5 mg Magnesium Hydroxide (Milk Of Magnesia) 30 ml PO HS PRN PRN Reason: Constipation Multivitamins/Vitamin C (Theragran) 1 tab PO DAILY [facility] Stop: 10/27/19 08:59 Last Admin: 09/06/19 08:12 Dose: 1 tab Quetiapine Fumarate (Seroquel) 200 mg PO BID [facility]; Protocol Stop: 10/31/19 08:59 Last Admin: 09/06/19 08:12 Dose: 200 mg Quetiapine Fumarate (Seroquel) 400 mg PO HS [facility]; Protocol Stop: 10/31/19 20:59 Last Admin: 09/05/19 20:43 Dose: 400 mg Zolpidem Tartrate (Ambien) 5 mg PO HS PRN PRN Reason: Insomnia Stop: 10/27/19 03:15 Last Admin: 09/01/19 20:39 Dose: 5 mg General: Alert, No acute distress HEENT: Atraumatic, PERRLA, EOMI Neck: Supple Cardiovascular: Regular rate, Normal S1, Normal S2 Lungs: Clear to auscultation Abdomen: Bowel sounds Extremities: no Clubbing, no Cyanosis, no Edema Neurological: Normal gait Assessment/Plan - Assessment Assessment: Psychosis Osteoarthritis Ischemic Cardiomyopathy Type 2DM muscle wasting Hyperlipidemia Anemia HTN COPD Glaucoma paranoid Schizophrenia Anxiety Disorder Major Depression Bipolar Disorder - Plan Plan: [facility] current orders. Nutritional Asmnt/Malnutr-PDOC - Dietary Evaluation Malnutrition Findings (Please click <Entered> for more info): Nutritional Asmnt/Malnutrition Start: 08/31/19 14: 27 Text: Status: Complete Freq: Protocol: Document 08/31/19 14:27 VELMA (Rec: 08/31/19 14:46 [email or web address]) Nutritional Asmnt/Malnutrition Patient General Information Nutritional Screening Moderate Risk Diagnosis Psychosis Pertinent Medical Hx/Surgical Hx Osteoarthritis, ischemic Cardiomyopathy, Type 2DM, muscle wasting, hyperlipidemia , Anemia, HTN, COPD, Glaucoma, paranoid Schizophrenia, Anxiety Disorder, Major Depression, Bipolar Disorder. Subjective Information Pt is a 64-year-old male admitted on 08/27 d/t psychosis. Pt is eating an estimated 92% of meals Per Meal/Nutrition Activity Record . Dietary is currently providing an estimated 1373 kcals and 82 gm Pro (x3 days), per Pt PO intake this is providing an estimated 1249 kcals and 75gm Pro to meet 89% kcal and 100+% Pro needs. Visited pt after lunch. Tried asking pt a few questions. Pt seemed agitated and did not want to talk, asked us to leave. Spoke with charge nurse Simran regarding pending A1C. Anthropometrics HT: 50 WT: 128 LB (58.18 kg) BMI: 25.02 (Overweight) GI/ Skin Integrity GI: WNL, Flat, Soft, Non- Tender BM: 08/28 x1 I/O: 1520/Not Noted Skin: None/Intact Shayan: 22 Diet Order: 60gms, GATO, Msoft Estimated Energy Needs: ( Geriatric, CBW) 1091-3851 kcals (25-30 kcals/ kg) 58-70g Pro (1.0-1.2 g/kg) 0566-0443 ml (25-30 ml/kg) Current Diet Order/ Nutrition Support 60gms, GATO, Msoft Pertinent Medications Colace, Iron, [place] 3, MOM ( PRN), Theragran Pertinent Labs No pertinent labs at this time . Nutritional Hx/Data Height 1.52 m Height (Calculated Centimeters) 152.4 Current Weight (lbs) 58.06 kg Weight (Calculated Kilograms) 58.1 Weight (Calculated Grams) 12660.8 [place] Body Weight 106 % [place] Body Weight 120 Body Mass Index (BMI) 25.0 Weight Status Approriate GI Symptoms Last BM 08/28 x1 Skin Integrity/Comment: Skin: None/Intact Shayan: 22 Current %PO Good (75-100%) Estimated Nutritional Goals BEE in Kcals: Using Current wt Calories/Kcals/Kg 25-30 Kcals Calculated 9561-1209 Protein: Using Current wt Protein g/k.0-1.2 Protein Calculated 58-70 Fluid: ml 8053-2957 ml (25-30 ml/kg) Nutritional Problem 1. Problem Problem No nutrition diagnosis at this time. Etiology N/A Signs/Symptoms: N/A Malnutrition Related to Morbid Obesity Malnutrition related to morbid obesity No Intervention/Recommendation Comments 1. Continue 60gms, GATO, msoft diet as tolerated. Expected Outcomes/Goals Expected Outcomes/Goals 1. PO intake to continue to meet >75% of estimated nutritional needs. 2. Monitor PO intake, wt, nutrition related labs, and skin integrity. 3. F/U as low risk in 7-10 days, 09/06-09/09
--- NOTE | 2019-09-06 11:28 | Discharge Summary ---
DATE OF DISCHARGE: 09/06/2019 The patient's age is 64. SEX: Male. PHYSICIAN: Dr. Crawley. FINAL DIAGNOSIS AND PRIMARY DIAGNOSIS: Schizophrenia, unspecified. SECONDARY DIAGNOSIS: Dementia, moderate, with psychotic features. REASON FOR HOSPITALIZATION: The patient is a 64-year-old male who was admitted to the hospital from [facility] after the patient was agitated and was yelling and screaming and was not able to follow any of staff directions. HOSPITAL COURSE: The patient continued to be anxious and continued to be in irritable mood. The patient also continued to have Klonopin in a dose of 1 mg twice a day and Depakote 500 mg twice a day. The patient also was given Seroquel and the dose adjusted to 200 mg twice a day and 400 mg at bedtime. Gradually, the patient's affect was brighter. The patient was less irritable and less agitated. The patient also was easier to redirect him. The patient was ____ hospital. Physical exam of the patient showed no major medical issues. Also, vital signs were stable and blood work was basically within normal except Depakote blood level that was done on August 30 came back to be ____, which is slightly below therapeutic level. AFTER DISCHARGE PLANS: The patient discharged from the hospital and the patient returned to [facility]. Outpatient treatment and followup will continue there. MENTAL STATUS EXAMINATION: Upon discharge, calm, cooperative. Denies any hallucinations or delusions and denies any suicide or homicide. He is also preoccupied and forgetful, but no major behavioral issues. AFTER DISCHARGE PLANS: The patient discharged from the hospital and returned to [facility]. The patient to follow up there. EXPECTED OUTCOME AFTER DISCHARGE: Fair if the patient continues to take his psychotropic medications and follow up with discharge plans. JOB# [id number]
== END 2019-09-06 13:25 | DRG 885 ==
LOC: GERO 08-28 02:15
PROVIDERS: ADMIT Psychiatry & Neurology Psychiatry; ATTEND Psychiatry & Neurology Psychiatry
DX: F20.9 Schizophrenia, unspecified (principal); F03.91 Unspecified dementia, unspecified severity, with behavioral disturbance; F31.9 Bipolar disorder, unspecified; F29 Unspecified psychosis not due to a substance or known physiological condition; M19.90 Unspecified osteoarthritis, unspecified site; I25.5 Ischemic cardiomyopathy; E11.9 Type 2 diabetes mellitus without complications; M62.50 Muscle wasting and atrophy, not elsewhere classified, unspecified site; E78.5 Hyperlipidemia, unspecified; D64.9 Anemia, unspecified; I10 Essential (primary) hypertension; J44.9 Chronic obstructive pulmonary disease, unspecified; H40.9 Unspecified glaucoma; F41.9 Anxiety disorder, unspecified
CPT/HCPCS: 83036-90; G0410; J1200; J1630; J2060; Z7610